=== PATIENT | female | born 1940 | race Caucasian/White ===

== ENCOUNTER 2020-09-13 01:33 | Observation (INO) | payer OTHER ==
--- OUTSIDE RECORDS SUMMARY | 2020-09-13 01:35 | XMS REPORT | Clinical Summary ---
:1940 Author Organization [facility] Address [address] [place] [address] Care Team Providers Name Role Phone Michael Thrasher MD Primary Care Provider [phone] Allergies Not on File Medications Not on file Active Problems Not on file Social History Tobacco Use Types Packs/Day Years Used Date Never Assessed Sex Assigned at Date Recorded Not on file Last Filed Vital Signs Not on file Plan of Treatment Health Maintenance Due Date Last Done Comments SHINGLES VACCINES (#1) 1990 65+ PNEUMOCOCCAL VACCINE (1 of 1 - PPSV23) 2005 INFLUENZA VACCINE 06/02/2020 Results Not on fileafter 09/13/2019 Advance Directives For more information, please contact: [phone] Type Date Recorded 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
[2020-09-13] MEDS ORDERED: ACETAMINOPHEN 650MG/RECT SUPP PR ONE (02:04)
[2020-09-13] MEDS ORDERED: NA CHLORIDE 0.9% 500 ML ONE (02:04)
[2020-09-13 02:28] LABS: Basophils % 1.3 % (0-1.3); RBC Red Blood Cell Count 3.53 M/uL (3.86-4.86)
[2020-09-13 02:41] LABS: Absolute Lymphocytes (CBC) 0.3 K/uL (0.7-4.9); Hematocrit 36.8 % (36.0-45.0); Lymphocytes % 3.9 % (15.3-44.8); MPV 9.1 fL (7.6-11.3)
[2020-09-13 02:57] LABS: Troponin (Emerg Dept Use Only) 0.02 ng/mL (0.0-0.045)
[2020-09-13 02:58] LABS: Potassium 4.1 mmol/L (3.5-5.1)
[2020-09-13 03:08] LABS: Urine Bacteria 20-50 /HPF (<20); Urine Culture Reflex Order NOT NEEDED; Urine RBC <5 /HPF (NONE SEEN)
[2020-09-13] MEDS ORDERED: CEFTRIAXONE/SWI 1gm 1 GM/10 ML SYR ONE (03:40)
--- NOTE | 2020-09-13 03:58 | ER ---
Nurse's Notes [facility] Name: Nilda Daigle Age: 80 yrs Sex: Female : 1940 Arrival Date: 09/13/2020 Time: 01:35 Bed 7 Private MD: Diagnosis: Altered mental status, unspecified;Delirium due to known physiological condition;Urinary tract infection, site not specified Presentation: 09/13 01:50 Chief complaint: EMS states: she is having altered mental status shortness of breath rr5 and fever. the family member noticed her breathing is getting harder. when we arrived RR of 30's, hypotensive 90/60 NS 700ml bolus given. T 101.9 O2sat 90 % hooked to oxygen. 01:50 Coronavirus screen: difficulty breathing, fever, Client presents with at least one sign rr5 or symptom that may indicate coronavirus-19. Standard/surgical mask placed on the client. Provider contacted for isolation considerations. Ebola Screen: Patient negative for fever greater than or equal to 101.5 degrees Fahrenheit, and additional compatible Ebola Virus Disease symptoms Patient denies exposure to infectious person. Patient denies travel to an Ebola-affected area in the 21 days before illness onset. Initial Sepsis Screen: Does the patient meet any 2 criteria? RR > 20 per min. Temp <36.0*C (96.8*F)) or > 38.3*C (100.9*F). HR > 90 bpm. Does the patient have a suspected source of infection? Yes: Productive cough/pneumonia Risk Assessment: Do you want to hurt yourself or someone else? Unable to obtain. Onset of symptoms was September 11, 2020. 01:50 Method Of Arrival: EMS: [facility] rr5 01:50 Acuity: TATIANA 2 rr5 Historical: - Allergies: 01:45 Ciprofloxacin; rr5 - Home Meds: 01:45 Myrbetriq oral oral [Active]; levothyroxine oral [Active]; raloxifene 60 mg oral tab rr5 [Active]; quetiapine oral oral [Active]; Keflex Oral [Active]; - PMHx: 01:45 Dementia; Hypothyroidism; Ulcers; BREAST CANCER; Arthritis; lymph edema; rr5 - PSHx: 01:45 Knee surgery; Hysterectomy; mastectomy right; Appendectomy; rr5 - Immunization history:: Adult Immunizations unknown. - Social history:: Smoking status: unknown. - Family history:: not pertinent. - Hospitalizations: : No recent hospitalization is reported. Screenin:00 Abuse screen: Denies threats or abuse. Denies injuries from another. Nutritional rr5 screening: No deficits noted. Tuberculosis screening: No symptoms or risk factors identified. Fall Risk Secondary diagnosis (15 points) dementia, impaired mobility, IV access (20 points). Mental Status- Overestimates/Forgets Limitations (15 pts.). Total Portillo Fall Scale indicates High Risk Score (45 or more points). Fall prevention measures have been instituted. Side Rails Up X 2 Placed Close to Nursing Station Frequent Obs/Assessments Occuring Family Present and informed to notify staff if the need to leave the bedside As available patient and family educated on Fall Prevention Program and Strategies. Assessment: 01:50 General: Appears in no apparent distress. comfortable, Behavior is quiet, Reports fever rr5 for. 01:50 Pain: Unable to use pain scale. Patient appears quiet. Neuro: Level of Consciousness is rr5 awake, alert, altered mental status. Cardiovascular: Capillary refill < 3 seconds Patient's skin is warm and dry. Respiratory: Airway is patent Respiratory effort is even, unlabored, Respiratory pattern is regular, symmetrical, Parent/caregiver reports the patient having shortness of breath. GI: No signs and/or symptoms were reported involving the gastrointestinal system. : No signs and/or symptoms were reported regarding the genitourinary system. EENT: No signs and/or symptoms were reported regarding the EENT system. Derm: Skin is fragile, is thin, Skin temperature is warm. Musculoskeletal: Capillary refill < 3 seconds. 02:50 Reassessment: Patient appears in no apparent distress at this time. Patient and/or rr5 family updated on plan of care and expected duration. Pain level reassessed. awaiting for results. 03:58 Reassessment: Patient appears in no apparent distress at this time. Patient and/or rr5 family updated on plan of care and expected duration. Pain level reassessed. reassess by ED provider. Vital Signs: 01:50 BP 113 / 74; Pulse 120; Resp 24; Temp 101.7; Pulse Ox 98% on 3 lpm NC; Weight 63.05 kg; rr5 Height 5 ft. 0 in. (152.40 cm); 03:14 BP 115 / 75; Pulse 108; Resp 25; Temp 99.7; Pulse Ox 99% on 3 lpm NC; rr5 03:47 BP 109 / 65; Pulse 102; Resp 24; Pulse Ox 99% on 3 lpm NC; rr5 05:00 BP 102 / 62; Pulse 105; Resp 23; Pulse Ox 99% on 3 lpm NC; rr5 06:08 BP 95 / 56; Pulse 92; Resp 22; Temp 97.4; Pulse Ox 98% on 3 lpm NC; rr5 01:50 Body Mass Index 27.15 (63.05 kg, 152.40 cm) rr5 ED Course: 01:35 Patient arrived in ED. cl3 01:39 Telly Tolentino MD is Attending Physician. rn 01:45 Patient has correct armband on for positive identification. Placed in gown. Bed in low rr5 position. Call light in reach. Side rails up X2. court recording monitor on. Pulse ox on. NIBP on. 01:48 Manan Hyde RN is Primary Nurse. rr5 01:50 EKG done, by ED staff, reviewed by Telly Tolentino MD. rr5 01:55 Inserted saline lock: 20 gauge in left antecubital area, using aseptic technique. rr5 ,using aseptic technique. inserted by cole SRIVASTAVA Blood collected. 01:55 First set of blood cultures drawn by ED staff. rr5 02:01 Triage completed. rr5 02:01 Arm band placed on right wrist. rr5 02:21 Chest Single View XRAY In Process Unspecified. EDMS 02:33 Urine collected: straight cath specimen, clear, Amount Returned: 500mL. rr5 03:56 Alfie Herrera MD is Hospitalizing Provider. rn 04:42 CT Chest For PE Angio In Process Unspecified. EDMS Administered Medications: 02:10 Drug: Tylenol Suppository 650 mg Route: [place]; rr5 03:10 Follow up: Response: No adverse reaction; Temperature is decreased rr5 02:14 Drug: NS 0.9% 500 ml Route: IV; Rate: bolus; Site: left antecubital; wh 03:30 Follow up: Response: No adverse reaction; IV Status: Completed infusion; IV Intake: rr5 500ml 03:35 Drug: Rocephin 1 grams Route: IV; Rate: calculated rate; Site: left forearm; rr5 04:05 Follow up: Response: No adverse reaction; IV Status: Completed infusion; IV Intake: [id number] Intake: 03:30 IV: 500ml; Total: 500ml. rr5 04:05 IV: 10ml; Total: 510ml. rr5 Outcome: 03:57 Decision to Hospitalize by Provider. rn 10:31 Patient left the ED. iw Signatures: Dispatcher [employer] Flavia Hooper RN RN iw Nieto, Roman, MD MD rn Habalo, Winsy wh Roque, Raymond, RN RN rr5 Hakan Kumari cl3
--- NOTE | 2020-09-13 03:58 | EDPHYS ---
Physician Documentation [facility] Name: Nilda Daigle Age: 80 yrs Sex: Female : 1940 Arrival Date: 09/13/2020 Time: 01:35 Bed 7 Private MD: ED Physician Telly Tolentino HPI: 09/13 01:47 This 80 yrs old Female presents to ER via Unassigned with complaints of rn Altered Mental Status, Breathing Difficulty. 01:47 The patient presents with decreased responsiveness. Onset: The symptoms/episode rn began/occurred today. Possible causes: unknown. Associated signs and symptoms: Pertinent positives: confusion, fever. Current symptoms: In the emergency department the patient's symptoms are unchanged from the initial presentation. The patient has not experienced similar symptoms in the past. The patient has been recently seen by a physician:. Family reports fever, AMS, seems to be having difficulty breathing, neg covid test from 2 days ago, no trauma, no known sick contacts, no vomiting/diarrhea. No skin changes. . Historical: - Allergies: 01:45 Ciprofloxacin; rr5 - Home Meds: 01:45 Myrbetriq oral oral [Active]; levothyroxine oral [Active]; raloxifene 60 mg oral tab rr5 [Active]; quetiapine oral oral [Active]; Keflex Oral [Active]; - PMHx: 01:45 Dementia; Hypothyroidism; Ulcers; BREAST CANCER; Arthritis; lymph edema; rr5 - PSHx: 01:45 Knee surgery; Hysterectomy; mastectomy right; Appendectomy; rr5 - Immunization history:: Adult Immunizations unknown. - Social history:: Smoking status: unknown. - Family history:: not pertinent. - Hospitalizations: : No recent hospitalization is reported. ROS: 01:47 Constitutional: + fever Eyes: Negative for injury, pain, redness, and consultants internrn acute care: Negative for chest pain, palpitations, and edema, Respiratory: + difficulty breathing Abdomen/GI: Negative for abdominal pain, nausea, vomiting, diarrhea, and constipation, MS/Extremity: Negative for injury and deformity, Skin: Negative for injury, rash, and discoloration, Neuro: Negative for headache, numbness, tingling, and seizure. Exam: 01:47 Constitutional: This is a well developed, well nourished patient who is awake, alert, rn mild tachypnea Head/Face: Normocephalic, atraumatic. Cardiovascular: Tachycardic, regular Respiratory: + mild tachypnea, diminished at bases Abdomen/GI: Soft, non-tender Skin: Warm, dry MS/ Extremity: Pulses equal, no cyanosis. Neuro: Awake and alert, seems confused, doesn't really follow commands 02:11 ECG was reviewed by the Attending Physician. rn Vital Signs: 01:50 BP 113 / 74; Pulse 120; Resp 24; Temp 101.7; Pulse Ox 98% on 3 lpm NC; Weight 63.05 kg; rr5 Height 5 ft. 0 in. (152.40 cm); 03:14 BP 115 / 75; Pulse 108; Resp 25; Temp 99.7; Pulse Ox 99% on 3 lpm NC; rr5 03:47 BP 109 / 65; Pulse 102; Resp 24; Pulse Ox 99% on 3 lpm NC; rr5 05:00 BP 102 / 62; Pulse 105; Resp 23; Pulse Ox 99% on 3 lpm NC; rr5 06:08 BP 95 / 56; Pulse 92; Resp 22; Temp 97.4; Pulse Ox 98% on 3 lpm NC; rr5 01:50 Body Mass Index 27.15 (63.05 kg, 152.40 cm) rr5 MDM: 01:39 Patient medically screened. rn 03:54 Differential Diagnosis: electrolyte abnormality, pneumonia, sepsis, UTI, volume rn depletion. Data reviewed: vital signs, nurses notes, lab test result(s), EKG, radiologic studies, plain films, and as a result, I will admit patient. Counseling: I had a detailed discussion with the patient and/or guardian regarding: the historical points, exam findings, and any diagnostic results supporting the discharge/admit diagnosis, lab results, radiology results, the need for further work-up and treatment in the hospital. Response to treatment: the patient's symptoms have mildly improved after treatment, and as a result, I will admit patient. Admission orders: after a detailed discussion of the patient's condition and case, the admit orders are written by me. ED course: Pt with signs of UTI, febrile, delirium, will admit for abx and IVF, to Dr. Herrera. Family reports increased agitation, not sleeping, falling, not steady on her feet. . 09/13 01:40 Order name: Urine Culture 09/13 01:40 Order name: Basic Metabolic Panel; Complete Time: 03:17 09/13 01:40 Order name: Blood Culture Adult (2) 09/13 01:40 Order name: CBC with Diff; Complete Time: 02:49 09/13 01:40 Order name: Lactate; Complete Time: 03:17 09/13 01:40 Order name: Procalcitonin; Complete Time: 03:17 09/13 01:40 Order name: Troponin (emerg Dept Use Only); Complete Time: 03:17 09/13 01:40 Order name: Urine Microscopic Only; Complete Time: 03:17 09/13 01:40 Order name: Chest Single View XRAY 09/13 01:40 Order name: Flu; Complete Time: 03:17 09/13 02:21 Order name: Glucose, Ancillary Testing; Complete Time: 02:49 EDKS 09/13 03:50 Order name: CT Chest For PE Angio 09/13 06:22 Order name: COVID-19 rr5 09/13 09:58 Order name: SARS-COV-2 RT PCR EDKS 09/13 01:40 Order name: Accucheck; Complete Time: 02:13 09/13 01:40 Order name: Cardiac monitoring; Complete Time: 02:13 09/13 01:40 Order name: EKG - Nurse/Tech; Complete Time: 02:13 09/13 01:40 Order name: IV Saline Lock - Large Bore; Complete Time: 02:13 09/13 01:40 Order name: Labs collected and sent; Complete Time: 02:13 09/13 01:40 Order name: O2 Per Protocol; Complete Time: 02: 09/13 01:40 Order name: O2 Sat Monitoring; Complete Time: 02:13 09/13 01:40 Order name: Urine Dipstick-Ancillary (obtain specimen); Complete Time: 03:09 09/13 03:09 Order name: Straight Cath - Urine; Complete Time: 03:09 rr5 EC:11 Rate is 121 beats/min. Rhythm is regular. QRS [place] is Normal. [place] interval is normal. rn QRS interval is normal. QT interval is normal. No Q waves. T waves are Normal. No ST changes noted. Clinical impression: Sinus tachycardia. Interpreted by me. Reviewed by me. Administered Medications: 02:10 Drug: Tylenol Suppository 650 mg Route: [place]; rr5 03:10 Follow up: Response: No adverse reaction; Temperature is decreased rr5 02:14 Drug: NS 0.9% 500 ml Route: IV; Rate: bolus; Site: left antecubital; 03:30 Follow up: Response: No adverse reaction; IV Status: Completed infusion; IV Intake: rr5 500ml 03:35 Drug: Rocephin 1 grams Route: IV; Rate: calculated rate; Site: left forearm; rr5 04:05 Follow up: Response: No adverse reaction; IV Status: Completed infusion; IV Intake: [id number] Disposition: 09/13/20 03:57 Hospitalization ordered by Alfie Herrera for Observation. Preliminary diagnosis are Altered mental status, unspecified, Delirium due to known physiological condition, Urinary tract infection, site not specified. - Bed requested for Telemetry/MedSurg (observation). - Status is Observation. iw - Condition is Stable. - Problem is new. - Symptoms have improved. Signatures: Dispatcher [employer] EDMS Mary Gonzalez Irene, CAROLA RN iw Telly Tolentino MD MD rn Lasagna, Tonya, RN RN tl1 Iris Morales Raymond, RN RN rr5 Corrections: (The following items were deleted from the chart) 06:26 03:57 Hospitalization Ordered by Alfie Herrera MD for Inpatient Admission. Preliminary tl1 diagnosis is Altered mental status, unspecified; Delirium due to known physiological condition; Urinary tract infection, site not specified. Bed requested for Telemetry/MedSurg (Inpatient). Status is Inpatient Admission. Condition is Stable. Problem is new. Symptoms have improved. rn 06:52 06:26 09/13/2020 03:57 Hospitalization Ordered by Alfie Herrera MD for Inpatient television journalist. Preliminary diagnosis is Altered mental status, unspecified; Delirium due to known physiological condition; Urinary tract infection, site not specified. Bed requested for [facility]. Status is Inpatient Admission. Condition is Stable. Problem is new. Symptoms have improved. tl1 10:21 06:52 09/13/2020 03:57 Hospitalization Ordered by Alfie Herrera MD for Observation. bd Preliminary diagnosis is Altered mental status, unspecified; Delirium due to known physiological condition; Urinary tract infection, site not specified. Bed requested for [facility] ER HOLD. Status is Observation. Condition is Stable. Problem is new. Symptoms have improved. rn 10:31 10:21 09/13/2020 03:57 Hospitalization Ordered by Alfie Herrera MD for Observation. iw Preliminary diagnosis is Altered mental status, unspecified; Delirium due to known physiological condition; Urinary tract infection, site not specified. Bed requested for Telemetry/MedSurg (observation). Status is Observation. Condition is Stable. Problem is new. Symptoms have improved. bd
[2020-09-13] MEDS ORDERED: ACETAMINOPHEN 500 MG TAB PO PRN (07:57)
[2020-09-13] MEDS ORDERED: ONDANSETRON 4 MG/2 ML VIAL IV PRN (07:57)
[2020-09-13] MEDS ORDERED: NA CHLORIDE 0.9% 1,000 ML IV SCH (07:57)
[2020-09-13 08:42] VITALS: BMI 27.1
[2020-09-13] MEDS ORDERED: D5 0.45 NS 1,000 ML IV ONE (09:00)
[2020-09-13] MEDS: D5 0.45 NS 1,000 ML IV SCH ×2 (09:00→22:20)
--- NOTE | 2020-09-13 13:02 | RAD REPORT ---
CLINICAL HISTORY: DYSPNEA TECHNIQUE: Axial computed tomographic angiography images of the chest with intravenous contrast. S agittal and coronal reformatted images were created and reviewed. This CT exam was performed using one or more of the following dose reduction techniques: automated exposure control, adjustment of t he mA and/or kV according to patient size, and/or use of iterative reconstruction technique. MIP re constructed images were created and reviewed. COMPARISON: No relevant prior studies available. FINDINGS: Pulmonary arteries: No abnormality noted. No pulmonary embolism. Aorta: No acute change noted. No thoracic aortic aneurysm. Lungs: Suboptimal pulmonary dural assessment due to suboptimal opacification and artifact. There is bilateral lower lobe atelectasis adjacent to the large hernia sac. Pleural space: No abnormality noted. No significant effusion. No pneumothorax. Heart: No abnormality noted. No cardiomegaly. No significant pericardial effusion. No evide nce of RV dysfunction. Bones/joints: No acute fracture. No dislocation. Soft tissues: No abnormality noted. Lymph nodes: No abnormality noted. No enlarged lymph nodes. Stomach and bowel: There is a large sliding hiatal hernia containing much of the stomach and a lo op of transverse colon. IMPRESSION: 1. There is a large hiatal hernia containing most of the stomach which appears thicken ed despite incomplete distention. Gastric abnormality such as neoplasm or chronic gastritis not exc luded. 2. Suboptimal pulmonary arterial assessment. No pulmonary embolus noted. Electronically signed by: Mayr Dorado MD 09/13/2020 5:15 AM MINER PLACER Due to temporary technical issues with the PACS/Fluency reporting system, reports are being signed by the in house radiologists without review as a courtesy to insure prompt reporting. The interpreting radiologist is fully responsible for the content of the report.
--- NOTE | 2020-09-13 13:05 | P.SSS ---
Patient History Date of Service: 09/13/20 History of Present Illness: SHE WAS BROUGHT BY FAMILY FOR WEAKNESS AND FEVER. FOUND TO HAVE UTI AND MILD LOW BP. Allergies ciprofloxacin [From Cipro] Allergy (Verified 09/10/16 14:11) Hives ciprofloxacin HCl [From Cipro] Allergy (Verified 09/10/16 14:11) Hives Home Medications: Levothyroxine Sodium 100 mcg PO [id number] 01/26/15 Raloxifene HCl [Evista*] 60 mg PO DAILY 01/26/15 Glucosamine/Chondroitin Sulf A [Glucosamine Chondroitin Cap] 1 each PO BID 08/14/16 Memantine HCl [Namenda*] 10 mg PO BEDTIME 08/14/16 Multivitamin [Multivitamins] 1 each PO DAILY 08/14/16 Vit A/Vit C/Vit E/Zinc/Copper [Icaps Areds Formula Dr Tablet] 1 each PO 1X 08/14/16 Donepezil HCl [Aricept] 10 mg PO BID 09/10/16 - Past Medical/Surgical History Diabetic: No -: rheumatoidarthritis -: knee pain -: speech problems - Social History Alcohol use: No CD- Drugs: No Caffeine use: No Review of Systems is unable to be obtained General: Weakness, Malaise Physical Examination - Vital Signs Temperature: 100.9 F Blood Pressure: 108/58 Pulse: 98 Respirations: 18 Pulse Ox (%): 92 - Physical Exam General: Mild distress, Confused (AT BASELINE SHE HAS SEVERE DEMENTIA AND APHASIA OF UNCLEAR ORIGIN EVALUATED BY NEUROLOGISTS.) HEENT: Atraumatic, PERRLA, Mucous membr. moist/pink, EOMI, Sclerae nonicteric Neck: Supple, 2+ carotid pulse no bruit, No LAD, Without JVD or thyroid abnormality Respiratory: Clear to auscultation bilaterally, Normal air movement Cardiovascular: Regular rate/rhythm, Normal S1 S2 Gastrointestinal: Normal bowel sounds, No tenderness Musculoskeletal: No tenderness Integumentary: No rashes Neurological: Normal gait, Normal speech, Normal strength at 5/5 x4 extr, Normal tone, Normal affect Lymphatics: No axilla or inguinal lymphadenopathy - Studies Laboratory Data (last 24 hrs) 09/13/20 01:58: WBC 8.1, Hgb 12.5, Hct 36.8, Plt Count 228 09/13/20 01:58: Sodium 145, Potassium 4.1, BUN 18, Creatinine 0.96, Glucose 137 H Microbiology Data (last 24 hrs): 09/13/20 01:58 Nasopharnyx Influenza Type A Antigen Screen - Final 09/13/20 01:58 Nasopharnyx Influenza Type B Antigen Screen - Final - Diagnosis (Problem(s)) (1) UTI (urinary tract infection) Current Visit: Yes Status: Acute Plan: UTI, SEEMS TO BE THE CASE [place] UA IS NOT IMPRESSIVE. CULTURE NOT DONE BY LAB. CONTINUE ROCEPHIN. MOST LIKELY DC HOME IN AM. (2) Hypotension Current Visit: Yes Status: Acute Plan: CONT GENTLE HYDRATION. - Disposition Disposition: ROUTINE DISCHARGE
[2020-09-13] MEDS ORDERED: NA CHLORIDE 0.9% 0 ML ONE (13:57)
--- NOTE | 2020-09-13 14:11 | RAD REPORT ---
EXAM DESCRIPTION: CHEST, ONE VIEW XR CLINICAL HISTORY: Fever;Dyspnea COMPARISON: None. TECHNIQUE: AP Chest. FINDINGS: Heart is upper normal in size. Thoracic aorta is tortuous with minimal atherosclerosis. Th ere is a retrocardiac opacity which may represent a very large hiatal hernia. No airspace consolidati on. No pleural fluid. Possible right apical small pneumothorax. No mediastinal shift. Bones appear intact. Unremarkable soft tissues. IMPRESSION: 1. Large retrocardiac opacity suspicious for large hiatal hernia. Lateral view would be helpful. 2. Right apical curvilinear shadow may represent skinfold or very small pneumothorax. Consider conven tional PA and lateral projections when patient condition permits. Electronically signed by: Matilda Zamudio DO 09/13/2020 3:26 AM METAL CEILING HANGER Due to temporary technical issues with the PACS/Fluency reporting system, reports are being signed by the in house radiologists without review as a courtesy to insure prompt reporting. The interpreting radiologist is fully responsible for the content of the report.
[2020-09-13 14:14] LABS: MPV 8.8 fL (7.6-11.3)
[2020-09-13] MEDS ORDERED: CEFTRIAXONE 1 GM/NS 50 ML 1 GM/50 ML BAG IV SCH (15:00)
[2020-09-13 15:59] LABS: Platelet Estimate ADEQ
--- NOTE | 2020-09-13 16:44 | RAD REPORT ---
EXAM DESCRIPTION: CT - Abdomen Pelvis W Contrast - 09/13/2020 4:23 pm CLINICAL HISTORY: Abdominal pain. COMPARISON: None. TECHNIQUE: Computed axial tomography of the abdomen and pelvis was obtained. 100 cc Isovue-300 is ad ministered intravenously. Oral contrast was given. All CT scans are performed using dose optimization technique as appropriate and may include automated exposure control or mA/KV adjustment according to patient size. FINDINGS: Large hiatal hernia. The liver, pancreas, adrenals and right kidney are unremarkable. Splenic granulomata Left parapelvic renal cysts There is no evidence of diverticulitis. Mild anterior subluxation L4 on L5 IMPRESSION: Large hiatal hernia
[2020-09-13] MEDS ORDERED: QUETIAPINE 25 MG TAB PO SCH (21:00)
[2020-09-13] MEDS ORDERED: CEFTRIAXONE/SWI 1gm 1 GM/10 ML SYR IV SCH (21:00)
[2020-09-14] MEDS: D5 0.45 NS 1,000 ML IV SCH (01:52)
[2020-09-14 06:55] LABS: Basophils % 3.1 % (0-1.3); Hematocrit 33.1 % (36.0-45.0); Lymphocytes % 22.4 % (15.3-44.8); MPV 8.2 fL (7.6-11.3); RBC Red Blood Cell Count 3.18 M/uL (3.86-4.86)
[2020-09-14 07:08] LABS: Potassium 3.8 mmol/L (3.5-5.1)
[2020-09-14 08:44] VITALS: O2SAT 95
[2020-09-14 08:53] LABS: Anisocytosis SLIGHT; Blood Morphology Comment NOTED (NOT SEEN); Macrocytosis SLIGHT; Platelet Estimate ADEQ
[2020-09-14] MEDS ORDERED: ENOXAPARIN 40 MG/0.4 ML SQ SCH (09:00)
[2020-09-14 11:51] VITALS: BP 118/60; TEMP 98.6
--- NOTE | 2020-09-16 07:52 | EKG ---
Test Date: 2020-09-13 Test Time: 01:46:44 Communication Instructor: MEASUREMENT RESULTS: Intervals: Rate: 121 SC: 168 QRSD: 70 QT: 308 QTc: 437 [place]: P: -16 SC: 168 QRS: 21 T: 19 INTERPRETIVE STATEMENTS: Sinus tachycardia with premature atrial complexes Otherwise normal ECG Compared to ECG 01/26/2015 06:41:07 Atrial premature complex(es) now present Sinus rhythm no longer present ST (T wave) deviation no longer present Electronically Signed On 09-16-20 07:42:20 CABLE MOCK UP ASSEMBLER by Mac Menendez
== END 2020-09-14 13:16 | disposition home or self-care (01) ==
LOC: ER 01:33 → INTOOBSV 06:28 → ERHOLD 06:28 → 4TH 10:52
PROVIDERS: ADMIT Internal Medicine; ATTEND Internal Medicine
DX: N39.0 Urinary tract infection, site not specified (principal); M06.9 Rheumatoid arthritis, unspecified; I95.9 Hypotension, unspecified; Z20.828 Contact with and (suspected) exposure to other viral communicable diseases; F03.90 Unspecified dementia, unspecified severity, without behavioral disturbance, psychotic disturbance, mood disturbance, and anxiety; E03.9 Hypothyroidism, unspecified; Z85.3 Personal history of malignant neoplasm of breast; M19.90 Unspecified osteoarthritis, unspecified site; K44.9 Diaphragmatic hernia without obstruction or gangrene
CPT/HCPCS: 96365; 96361; 93005; 87040 ×2; 85025 ×2; 87086; 80048 ×2; 36415 ×2; 85049; 82947; 83605; 81015; 84484; 84145; 87804 ×2; 71275; 74177; 71045; 99285; U0003; Q9967 ×2; J1650; J0696 ×2; J7799 ×2; J7040; 87088

== ENCOUNTER 2020-10-25 23:25 | Inpatient (IN) | payer OTHER ==
--- OUTSIDE RECORDS SUMMARY | 2020-10-25 23:26 | XMS REPORT | Clinical Summary ---
:1940 Author Organization [facility] Address [address] [place] [address] Care Team Providers Name Role Phone Michael Thrasher MD Primary Care Provider [phone] Allergies Not on File Medications Not on file Active Problems Not on file Social History Tobacco Use Types Packs/Day Years Used Date Never Assessed Sex Assigned at Date Recorded Not on file Last Filed Vital Signs Not on file Plan of Treatment Health Maintenance Due Date Last Done Comments COVID-19 VACCINE (#1) 1956 SHINGLES VACCINES (#1) 1990 65+ PNEUMOCOCCAL VACCINE (1 of 1 - PPSV23) 2005 INFLUENZA VACCINE 06/02/2020 Results Not on fileafter 10/25/2019 Advance Directives For more information, please contact: [phone] Type Date Recorded 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
[2020-10-26 00:14] LABS: Absolute Lymphocytes (CBC) 0.4 K/uL (0.7-4.9); Basophils % 0.6 % (0-1.3); Hematocrit 33.4 % (36.0-45.0); Lymphocytes % 3.3 % (15.3-44.8); MPV 8.6 fL (7.6-11.3); RBC Red Blood Cell Count 3.18 M/uL (3.86-4.86)
[2020-10-26 00:15] LABS: Protime INR 1.05
[2020-10-26] MEDS ORDERED: NA CHLORIDE 0.9% 2,000 ML ONE (00:15)
[2020-10-26] MEDS ORDERED: CEFTRIAXONE/SWI 1gm 1 GM/10 ML SYR ONE (00:16)
[2020-10-26 00:17] LABS: Urine Blood NEGATIVE (NEG); Urine Glucose NEGATIVE (NEG); Urine Protein NEGATIVE (NEG); Urine Specific Gravity >1.030 (1.005-1.030); Urine pH 6.5 (5.0-7.0)
[2020-10-26 00:32] LABS: Albumin 3.1 g/dL (3.4-5.0); Bilirubin Direct 0.2 mg/dL (0-0.2); Bilirubin Total 0.6 mg/dL (0.2-1.0); CKMB Creatine Kinase MB 1.7 ng/mL (0.3-3.6); Potassium 3.7 mmol/L (3.5-5.1); Protein, Total 6.3 g/dL (6.4-8.2); Troponin (Emerg Dept Use Only) 0.03 ng/mL (0.0-0.045)
[2020-10-26 00:34] LABS: Urine Bacteria <20 /HPF (<20); Urine Mucus 2+ /HPF (NONE SEEN); Urine RBC <5 /HPF (NONE SEEN)
[2020-10-26 00:44] LABS: Platelet Estimate ADEQ
[2020-10-26 00:45] LABS: Blood Morphology Comment NOTED (NOT SEEN); Ovalocytes 2+; Poikilocytosis 1+; Stomatocytes 1+
[2020-10-26] MEDS ORDERED: ALBUTEROL 2.5 MG/3 ML NEB SOL NEB PRN (04:34)
[2020-10-26] MEDS ORDERED: ACETAMINOPHEN 650MG/RECT SUPP PR PRN (04:34)
[2020-10-26] MEDS ORDERED: ONDANSETRON 4 MG/2 ML VIAL IV PRN (04:34)
[2020-10-26] MEDS ORDERED: D5 0.45 NS 1,000 ML IV ONE (04:41)
[2020-10-26] MEDS ORDERED: PIPER/TAZO/NS 3.375gm 3.375 GM/100 ML BAG ONE (04:43)
[2020-10-26] MEDS ORDERED: MORPHINE 2 MG/ML SYR IV PRN (04:44)
[2020-10-26] MEDS ORDERED: LIDOCAINE VISCOUS 2% SOLN 15 ML UDC ONE (04:55)
[2020-10-26] MEDS: PIPER/TAZO/NS 3.375gm 3.375 GM/100 ML BAG IVPB SCH ×3 (06:00→18:00)
--- NOTE | 2020-10-26 06:29 | EDPHYS ---
Physician Documentation [facility] Name: Nilda Daigle Age: 80 yrs Sex: Female : 1940 Arrival Date: 10/25/2020 Time: 23:26 Bed 7 Private MD: ED Physician Del Garcia HPI: 10/25 23:58 This 80 yrs old Female presents to ER via EMS with complaints of Fever. [facility] 23:58 The patient reports fever, that was measured at 101 degrees Fahrenheit, with an 7 emergency department temperature of 102 degrees Fahrenheit. Onset: The symptoms/episode began/occurred today. Modifying factors: there are no obvious modifying factors. Associated signs and symptoms: Pertinent positives: altered mental status,\E\. Severity of symptoms: At their worst the symptoms were moderate today, in the emergency department the symptoms are unchanged. Unable to obtain HPI due to baseline dementia, Mute. The patient has experienced similar episodes in the past, a few times. Historical: - Allergies: 23:35 Ciprofloxacin; rv - PMHx: 23:35 Arthritis; breast cancer; Dementia; Hypothyroidism; LYMPH EDEMA; Ulcers; rv - Immunization history:: Adult Immunizations up to date. - Social history:: Smoking status: unknown. ROS: 23:58 Unable to obtain ROS due to baseline dementia, Mute. 7 Exam: 23:58 Head/Face: Normocephalic, atraumatic. Eyes: Pupils equal round and reactive to light, 7 extra-ocular motions intact. Lids and lashes normal. Conjunctiva and sclera are non-icteric and not injected. Cornea within normal limits. Periorbital areas with no swelling, redness, or edema. ENT: Nares patent. No nasal discharge, no septal abnormalities noted. Tympanic membranes are normal and external auditory canals are clear. Oropharynx with no redness, swelling, or masses, exudates, or evidence of obstruction, uvula midline. Mucous membranes moist. Neck: Trachea midline, no thyromegaly or masses palpated, and no cervical lymphadenopathy. Supple, full range of motion without nuchal rigidity, or vertebral point tenderness. No Meningismus. Chest/axilla: Normal chest wall appearance and motion. Nontender with no deformity. No lesions are appreciated. 23:58 Respiratory: Lungs have equal breath sounds bilaterally, clear to auscultation and percussion. No rales, rhonchi or wheezes noted. No increased work of breathing, no retractions or nasal flaring. Abdomen/GI: Soft, non-tender, with normal bowel sounds. No distension or tympany. No guarding or rebound. No evidence of tenderness throughout. Back: No spinal tenderness. No costovertebral tenderness. Full range of motion. Skin: Warm, dry with normal turgor. Normal color with no rashes, no lesions, and no evidence of cellulitis. MS/ Extremity: Pulses equal, no cyanosis. Neurovascular intact. Full, normal range of motion. 23:58 Constitutional: The patient appears in no acute distress, alert, awake, febrile. 23:58 Cardiovascular: Rate: tachycardic, Rhythm: regular, Pulses: no pulse deficits are appreciated, Heart sounds: normal, normal S1and S2, Edema: is not appreciated, JVD: is not appreciated. 23:58 Neuro: Orientation: unable to test, the patient has a history of dementia, Mentation: unable to test, the patient has a history of dementia, Memory: unable to test, the patient has a history of dementia, Cranial nerves: unable to test, Mute, Cerebellar function: unable to test, the patient has a history of dementia, Motor: moves all fours, Sensation: no obvious gross deficits, Gait: not tested. Deep tendon reflexes are normal, Babinski testing is normal, seizure activity, is not displayed by the patient, Abnormal movements: there are no abnormal movements. 10/26 05:28 ECG was reviewed by the Attending Physician. [facility] Vital Signs: 10/25 23:29 BP 126 / 77; Pulse 123; Resp 20; Temp 102.1; Pulse Ox 94% on R/A; rv 23:58 Weight 68.04 kg; rv 10/26 01:59 BP 110 / 59; Pulse 102; Resp 26; Temp 100.4; Pulse Ox 96% on R/A; rv 02:48 BP 111 / 60; Pulse 101; Resp 26; Pulse Ox 97% on R/A; rv 04:16 BP 110 / 55; Pulse 88; Resp 24; Temp 98.5; Pulse Ox 96% on R/A; rv 05:00 BP 122 / 69; Pulse 112; Resp 21; Pulse Ox 97% on R/A; rv 06:00 BP 113 / 66; Pulse 102; Resp 23; Pulse Ox 97% ; rv MDM: 04:25 Differential diagnosis: viral Infection, bacterial infection, URI, bronchitis, mh7 pneumonia UTI. Data reviewed: vital signs, nurses notes, EMS record, old medical records, lab test result(s), cardiac enzymes, CBC, electrolytes, urinalysis, EKG, radiologic studies, CT scan, plain films. Data interpreted: Pulse oximetry: on room air is 96 %. Interpretation: normal. Counseling: I had a detailed discussion with the patient and/or guardian regarding: the historical points, exam findings, and any diagnostic results supporting the discharge/admit diagnosis, lab results, radiology results, the need for further work-up and treatment in the hospital. Response to treatment: the patient's symptoms have markedly improved after treatment. Physician consultation: Mayco Valdivia MD regarding patient's condition, and will see patient in inpatient room, would like admission per Dr. Alfie Hrerera MD Wants nasogastric tube placed. 04:29 Patient medically screened. [facility] 10/25 23:32 Order name: Amylase, Serum [facility] 10/25 23:32 Order name: Basic Metabolic Panel [facility] 10/25 23:32 Order name: Blood Culture Adult (2) [facility] 10/25 23:32 Order name: CBC with Diff; Complete Time: 00:53 [facility] 10/25 23:32 Order name: Ckmb; Complete Time: 00:53 [facility] 10/25 23:32 Order name: CPK; Complete Time: 00:53 [facility] 10/25 23:32 Order name: Lactate; Complete Time: 00:53 [facility] 10/25 23:32 Order name: LFT's; Complete Time: 00:53 [facility] 10/25 23:32 Order name: Lipase; Complete Time: 00:53 [facility] 10/25 23:32 Order name: Procalcitonin; Complete Time: 01:09 [facility] 10/25 23:32 Order name: Protime (+inr); Complete Time: 00:53 [facility] 10/25 23:32 Order name: Ptt, Activated; Complete Time: 00:53 [facility] 10/25 23:32 Order name: Troponin (emerg Dept Use Only); Complete Time: 00:53 [facility] 10/25 23:32 Order name: Urine Microscopic Only; Complete Time: 00:53 [facility] 10/25 23:32 Order name: Chest Single View XRAY [facility] 10/25 23:33 Order name: Amylase; Complete Time: 00:53 [facility] 10/25 23:33 Order name: Basic Metabolic Panel; Complete Time: 00:53 [facility] 10/25 23:33 Order name: Blood Culture [facility] 10/25 23:33 Order name: Influenza Screen (a \T\ B); Complete Time: 00:53 [facility] 10/25 23:37 Order name: CT Head Brain wo Cont [facility] 10/25 23:59 Order name: Glucose, Ancillary Testing; Complete Time: 00:09 [facility] 10/26 00:04 Order name: Urine Dipstick--Ancillary (enter results); Complete Time: 00:53 [facility] 10/26 00:17 Order name: Manual Differential; Complete Time: 00:53 [facility] 10/26 00:52 Order name: SARS-COV-2 RT PCR; Complete Time: 00:53 [facility] 10/26 02:14 Order name: Chest Abd Pelvis Wo Con [facility] 10/26 04:17 Order name: Lactate Sepsis 2 HR Follow-up; Complete Time: 05:29 [facility] 10/26 05:40 Order name: Chest Single View XRAY 10/25 23:32 Order name: Accucheck; Complete Time: 23:58 7 10/25 23:32 Order name: Cardiac monitoring; Complete Time: 23:58 [facility] 10/25 23:32 Order name: EKG - Nurse/Tech; Complete Time: 23:58 [facility] 10/25 23:32 Order name: IV Saline Lock - Large Bore; Complete Time: 23:58 [facility] 10/25 23:32 Order name: Labs collected and sent; Complete Time: 23:58 7 10/25 23:32 Order name: O2 Per Protocol; Complete Time: 23:58 [facility] 10/25 23:32 Order name: O2 Sat Monitoring; Complete Time: 23:56 [facility] 10/25 23:32 Order name: Urine Dipstick-Ancillary (obtain specimen); Complete Time: 23:56 [facility] 10/26 04:34 Order name: CONS Physician Consult EDSD EC:28 Rate is 121 beats/min. Rhythm is regular, Sinus tachycardia. QRS [place] is Normal. IN mh7 interval is normal. QRS interval is normal. QT interval is normal. No Q waves. T waves are Normal. No ST changes noted. Clinical impression: Sinus tachycardia. Administered Medications: 10/25 23:56 Not Given (given at longterm): Tylenol 650 mg PO once rv 10/26 00:00 Drug: Rocephin - (cefTRIAXone) 1 grams Route: IVPB; Infused Over: 30 mins; Site: left rv hand; 00:05 Drug: NS 0.9% (30 ml/kg) 30 ml/kg Route: IV; Rate: bolus; Site: left hand; rv 04:18 Follow up: IV Status: Completed infusion; IV Intake: 2000ml rv 04:40 Drug: Zosyn 3.375 grams Route: IVPB; Infused Over: 60 mins; Site: left wrist; 06:28 Follow up: Response: No adverse reaction; IV Status: Completed infusion 04:41 Drug: D5-1/2 NS 1000 ml Route: IV; Rate: 100 calculated rate; Site: left wrist; 06:28 Follow up: Response: No adverse reaction; IV Status: Infusion continued upon admission Disposition: 10/26/20 04:29 Hospitalization ordered by Alfie Herrera for Inpatient Admission. Preliminary diagnosis are Sepsis, Volvulus. - Bed requested for Telemetry/MedSurg (Inpatient). - Status is Inpatient Admission. - Condition is Stable. - Problem is new. - Symptoms have improved. Signatures: Dispatcher [employer] EDSD Liseth Bermudez RN RN Iris Morales Hugo Edwards RN RN Del Garcia MD MD [id number] Corrections: (The following items were deleted from the chart) 00:12 10/25 23:34 CORONAVIRUS+MR.LAB.BRZ ordered. EDSD EDSD 10/26 02:14 02:04 Thorax Wo Con+CT.RAD.BRZ ordered. EDSD EDMS 02:32 02:04 Abdomen Pelvis Wo Con+CT.RAD.BRZ ordered. EDSD EDMS 04:54 04:29 Hospitalization Ordered by Alfie Herrera MD for Inpatient Admission. Preliminary cg diagnosis is Sepsis; Volvulus. Bed requested for Telemetry/MedSurg (Inpatient). Status is Inpatient Admission. Condition is Stable. Problem is new. Symptoms have improved. 7 06:28 04:54 10/26/2020 04:29 Hospitalization Ordered by Alfie Herrera MD for Inpatient Admission. Preliminary diagnosis is Sepsis; Volvulus. Bed requested for Telemetry/MedSurg (Inpatient). Status is Inpatient Admission. Condition is Stable. Problem is new. Symptoms have improved. cg
--- NOTE | 2020-10-26 06:29 | ER ---
Nurse's Notes [facility] Name: Nilda Daigle Age: 80 yrs Sex: Female : 1940 Arrival Date: 10/25/2020 Time: 23:26 Bed 7 Private MD: Diagnosis: Sepsis;Volvulus Presentation: 10/25 23:29 Chief complaint: EMS states: initially called in for possible stroke, with facial rv droop. upon assessment, patient is negative for stroke. vital signs checked and patient has a temperature of 102. Coronavirus screen: Client denies travel out of the [place] in the last 14 days. Coronavirus screen: fever. Ebola Screen: No symptoms or risks identified at this time. Initial Sepsis Screen: Does the patient meet any 2 criteria? Temp <36.0*C (96.8*F)) or > 38.3*C (100.9*F). HR > 90 bpm. Initial Sepsis Screen: Does the patient have a suspected source of infection? Yes: Dysuria/Frequency/Urgency/UTI. Risk Assessment: Do you want to hurt yourself or someone else? Patient reports no desire to harm self or others. Onset of symptoms was October 25, 2020. 23:29 Method Of Arrival: EMS: [facility] rv 23:29 Acuity: TATIANA 3 rv Triage Assessment: 23:35 General: Appears comfortable, Behavior is quiet. Pain: Denies pain. EENT: No signs rv and/or symptoms were reported regarding the EENT system. Neuro: Level of Consciousness is awake, confused. Cardiovascular: Patient's skin is warm and dry. Rhythm is sinus tachycardia. Respiratory: Airway is patent Respiratory effort is even, unlabored. Derm: Skin is intact. Historical: - Allergies: 23:35 Ciprofloxacin; rv - PMHx: 23:35 Arthritis; breast cancer; Dementia; Hypothyroidism; LYMPH EDEMA; Ulcers; rv - Immunization history:: Adult Immunizations up to date. - Social history:: Smoking status: unknown. Screenin:36 Abuse screen: Denies threats or abuse. Denies injuries from another. Nutritional rv screening: No deficits noted. Tuberculosis screening: No symptoms or risk factors identified. Fall Risk No fall in past 12 months (0 pts). Secondary diagnosis (15 points) Alzheimer's, dementia, IV access (20 points). Ambulatory Aid- Crutches/Cane/Walker (15 pts). Gait- Weak (10 pts.). Mental Status- Overestimates/Forgets Limitations (15 pts.). Total Portillo Fall Scale indicates High Risk Score (45 or more points). Fall prevention measures have been instituted. Side Rails Up X 2 Placed Close to Nursing Station Frequent Obs/Assessments Occuring As available patient and family educated on Fall Prevention Program and Strategies. Assessment: 10/26 05:00 Reassessment: Patient appears in no apparent distress at this time. Patient and/or wh family updated on plan of care and expected duration. Pain level reassessed. Vital Signs: 10/25 23:29 BP 126 / 77; Pulse 123; Resp 20; Temp 102.1; Pulse Ox 94% on R/A; rv 23:58 Weight 68.04 kg; rv 10/26 01:59 BP 110 / 59; Pulse 102; Resp 26; Temp 100.4; Pulse Ox 96% on R/A; rv 02:48 BP 111 / 60; Pulse 101; Resp 26; Pulse Ox 97% on R/A; rv 04:16 BP 110 / 55; Pulse 88; Resp 24; Temp 98.5; Pulse Ox 96% on R/A; rv 05:00 BP 122 / 69; Pulse 112; Resp 21; Pulse Ox 97% on R/A; rv 06:00 BP 113 / 66; Pulse 102; Resp 23; Pulse Ox 97% ; rv ED Course: 10/25 23:26 Patient arrived in ED. cl3 23:29 Hugo Edwards RN is Primary Nurse. rv 23:32 Del Garcia MD is Attending Physician. mh7 23:33 Triage completed. rv 23:36 Arm band placed on right wrist. Patient placed in the treatment room, on a stretcher, rv Patient notified of wait time. 23:37 Patient has correct armband on for positive identification. Bed in low position. Call rv light in reach. Side rails up X 1. vehicle monitor technician on. Pulse ox on. NIBP on. 10/26 00:13 Chest Single View XRAY In Process Unspecified. EDMS 00:26 CT Head Brain wo Cont In Process Unspecified. EDMS 00:30 No provider procedures requiring assistance completed. Inserted saline lock: 20 gauge rv in left hand, using aseptic technique. 02:41 Chest Abd Pelvis Wo Con In Process Unspecified. EDFL 04:28 Alfie Herrera MD is Hospitalizing Provider. [facility] 05:30 NGT: inserted 18 Fr. via left nare. verified return of gastric contents, Placement rv verified by X-ray, to intermittent suction. Returned gastric contents. Patient tolerated well. 06:16 Patient admitted, IV remains in place. Administered Medications: 10/25 23:56 Not Given (given at intermediate): Tylenol 650 mg PO once rv 10/26 00:00 Drug: Rocephin - (cefTRIAXone) 1 grams Route: IVPB; Infused Over: 30 mins; Site: left rv hand; 00:05 Drug: NS 0.9% (30 ml/kg) 30 ml/kg Route: IV; Rate: bolus; Site: left hand; rv 04:18 Follow up: IV Status: Completed infusion; IV Intake: 2000ml rv 04:40 Drug: Zosyn 3.375 grams Route: IVPB; Infused Over: 60 mins; Site: left wrist; 06:28 Follow up: Response: No adverse reaction; IV Status: Completed infusion 04:41 Drug: D5-1/2 NS 1000 ml Route: IV; Rate: 100 calculated rate; Site: left wrist; 06:28 Follow up: Response: No adverse reaction; IV Status: Infusion continued upon admission Intake: 04:18 IV: 2000ml; Total: 2000ml. rv Outcome: 04:29 Decision to Hospitalize by Provider. [facility] 06:15 Admitted to Med/surg accompanied by nurse, via stretcher, room 212, with chart, Report wh called to Hayde Wade RN 06:15 Condition: stable 06:15 Instructed on the need for admit. 06:28 Patient left the ED. Signatures: Dispatcher [employer] EDFL Iris Morales Hugo Edwards RN RN rv Hakan Kumari3 Del Garcia MD MD 7
[2020-10-26 06:40] VITALS: BMI 30.1
[2020-10-26] MEDS: INSULIN -REGULAR HUMAN 50 UNIT/0.5 ML ML SQ SCH ×4 (07:30→21:00)
[2020-10-26] MEDS: D5 0.45 NS 1,000 ML IV SCH ×2 (10:13→15:00)
--- NOTE | 2020-10-26 11:33 | RAD REPORT ---
EXAM DESCRIPTION: RAD - Chest Single View - 10/26/2020 6:02 am CLINICAL HISTORY: POST NGT Chest pain. COMPARISON: Chest Single View dated 10/26/2020; Chest Single View dated 09/13/2020; Chest Pa And Lat (2 Views) dated 09/06/2020; CHEST SINGLE VIEW dated 01/26/2015 FINDINGS: Portable technique limits examination quality. Enteric tube tip is likely within the large hiatal hernia. A mild kink is seen of the tubing.
--- NOTE | 2020-10-26 12:30 | CON ---
Date of Consultation: 10/26/2020 Brief History Of Present Illness: Patient is an 80-year-old female with a history of demen tia, who is aphasic and nonverbal, who is accompanied by her daughter who brought her to the hospital from a senior care with complaints of fever. There was no report of abdominal pain, although the p atient cannot describe these types of issues. She had a fever of 102. She had no nausea, vomiting, change in her bowel or bladder habits. No food intolerance. No abdominal distention or abdominal fi ndings. She had a CT scan performed in the ER, which incidentally found a large hiatal hernia, which was previously known from the daughter as well as an organoaxial volvulus of the stomach. Patient h ad an NG-tube placed, which had only clear effluent without evidence of bleeding and as such, I was c onsulted to see the patient for the volvulus. Past Medical History: Significant for arthritis, breast cancer, dementia, she is aphasic, hypothyroi dism, lymphedema, ulcers. Allergies: TO CIPRO. Review of Systems: Unable to obtain. Social History: There is no smoking, alcohol, or recreational drug use history. She lives in a [facility] facility. Physical Examination: Vital Signs: At the time of my examination, blood pressure 126/60, heart rate is 98, respiratory rat e 16, temperature 99.5. General: She is awake and alert, but she is nonverbal. She does not respond in any meaningful way. She does look around, but does not gesture or respond to me with any appropriate gesturing. HEENT: Otherwise normocephalic. Sclerae anicteric. Mucous membranes are moist. Oropharynx clear. Neck: Supple without JVD. Chest: Normal expansion and excursion. Cardiovascular: Regular rate and rhythm. Pulmonary: Clear to auscultation bilaterally. Abdomen: Soft, nontender, nondistended. No rebound. No guarding. No focal peritonitis. She has a completely benign abdominal examination. Laboratory Data: Reveals her white blood cell count is 11.5, hemoglobin is 7.2, hematocrit of 33.4, platelet count is 239. Her neutrophils are 93%. PT 12.4, INR 1.05, PTT is 24.0. Her sodium is 146, potassium 3.7, chloride 116, carbon dioxide 22, BUN 19, creatinine 0.8, glucose was 136. Lactic aci d was 2.6 on admission, now 1.5. Her alkaline phosphatase is 32, lipase is 102. Procalcitonin less than 0.05. UA was essentially negative. I believe her COVID was negative. She had imaging performe d, which included a CT of the abdomen and pelvis, officially read as no evidence of acute intrathorac ic disease. CT chest, abdomen, and pelvis, organoaxial gastric volvulus. The majority of the stomac h extends through the diaphragmatic hiatus and as there is a portion of the transverse colon, the gre ater curve of the stomach lies above the lesser curve. Degenerative changes in the skeletal and vasc ular structures. Evidence of prior granulomatous disease. 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 Degenerative change to the skeletal and vascular structures with grade 1 anterolis thesis of L4 relative to L5 and mild scoliosis of the lumbar spine and a prior hysterectomy. She add itionally had a chest x-ray performed which was officially read as no evidence of acute intrathoracic disease and a large hiatal hernia. She had a CT of her head performed as well, which showed no evid ence of acute intracranial pathology, moderate cerebral atrophy with findings consistent of chronic microangiopathy. Assessment And Plan: 1.This is an 80-year-old female who presents to the hospital with organoaxial volvulus, large hiatal hernia with portion of transverse colon. 2.Continue medical management. 3.Remove NG tube. 4.Okay to start clear liquid diet and advance to soft diet as tolerated. 5.I find that patient has no evidence of intraabdominal issues. 6.I have discussed the surgical options for repair of her hiatal hernia as well as gastropexy to red uce the volvulus; however, her daughter, who is her medical power of logistics loss prevention manager, states that the patien t would not wish for any surgical intervention as she had a very difficult recovery from previous lisset geries and she is DNR status as well. Therefore, they would like to proceed with nonoperative manage ment unless there are no other options at which point they would reconsider. However, at this point, they agree with proceeding with nonoperative management. I have explained risks, alternatives, alte rnatives of the above stated plan. Patient agrees to proceed as indicated. BING/KATRINA Voice ID: [id number] Report ID: [id number]
--- NOTE | 2020-10-26 12:48 | RAD REPORT ---
EXAM DESCRIPTION: ADDENDUM #1 These critical findings were discussed with Dr. Garcia on 10/26/2020 at 1:34 AM central time. Electronically signed by: Nancy Fallon DO 10/26/2020 3:32 AM [facility] End of Addendum EXAM DESCRIPTION: CT head without IV contrast CLINICAL HISTORY: 80 years Female AMS, facial droop TECHNIQUE: Multiple axial CT images of the brain were performed followed by sagittal and coronal rec onstructed images. The CT study is performed according to ALARA (as low as reasonably achievable) or ALARA/IMAGE GENTLY, with automatic adjustment of mA and/or kV according to patient size. Performed on: 10/25/2020 at 11:45 PM COMPARISON: None. FINDINGS: Brain: There is no evidence of mass, acute mass effect or midline shift. There are no acut e extra-axial fluid collections. There is no evidence of acute intracranial hemorrhage. The cerebra l sulci and ventricles are prominent consistent with moderate cerebral volume loss..There are scatter ed areas of decreased attenuation within the subcortical and periventricular white matter most likely due to mild chronic microangiopathy. There is no evidence of a hyperdense MCA. Paranasal Sinuses and Mastoids: There is no significant mucosal thickening of the paranasal sinuses. The mastoid air cells are clear. Orbits: The orbital contents are grossly unremarkable. Bones: No acute osseous abnormalities are identified. Soft Tissues: No focal soft tissue abnormalities are identified. IMPRESSION: 1. There is no evidence of acute intracranial pathology. 2. Moderate cerebral atrophy with findings consistent with chronic microangiopathy. Electronically signed by: Nancy Fallon DO 10/26/2020 1:31 AM [facility] Due to temporary technical issues with the PACS/Fluency reporting system, reports are being signed by the in house radiologists without review as a courtesy to insure prompt reporting. The interpreting radiologist is fully responsible for the content of the report.
--- NOTE | 2020-10-26 12:52 | RAD REPORT ---
EXAM DESCRIPTION: 1. CT scan of the CHEST without intravenous contrast. 2. CT scan of the ABDOMEN AND PELVIS without intravenous contrast CLINICAL HISTORY: 80 years Female fever, possible pneumonia. TECHNIQUE: CT imaging of the chest, abdomen and pelvis without intravenous contrast administration. Sagittal and coronal reconstructed images were performed. The CT study is performed according to ALAR A (as low as reasonably achievable) or ALARA/IMAGE GENTLY, with automatic adjustment of mA and/or kV according to patient size. Performed on: 10/26/2020 2:25 AM COMPARISON: CT chest, abdomen and pelvis performed on 09/13/2020 FINDINGS: CHEST: Lungs: The lungs are well-expanded and are grossly clear. There is minimal left basilar atelectasis. There is a large hiatal hernia. The majority of the stomach as well as portions of the transverse col on extending through the diaphragmatic hiatus. The appearance of the stomach suggests an organoaxial volvulus. There are no pleural effusions. There is no pneumothorax. Heart: The heart is top normal in size. There is no pericardial effusion. Mediastinum: The mediastinum is unremarkable. The mediastinal vessels are normal in caliber and con tour. There are mild atherosclerotic calcifications along the thoracic aorta. Bones: No acute osseous abnormalities are identified. There are degenerative changes along the thorac ic spine and there are vacuum discs at multiple levels. Soft tissues: No focal soft tissue abnormalities are identified. Lymphadenopathy: No pathologic hilar, mediastinal or axillary lymphadenopathy is identified. There are calcified right hilar lymph nodes. ABDOMEN/PELVIS: Liver: The liver is normal in size and configuration. No focal hepatic abnormalities are identified. Liver attenuation is within normal limits. Spleen: The spleen is normal is size, configuration and attenuation. There are multiple punctate sple michelle granulomas. Gallbladder and bile duct: The gallbladder is well distended and unremarkable. There is no biliary ductal dilatation. Pancreas: The pancreas is grossly normal in size and configuration. Adrenal Glands: The adrenal glands are normal in size and configuration. Kidneys: The kidneys are normal in size and configuration. There is persistent dilatation of the left renal collecting system which may be related to a chronic UPJ obstruction. No definite renal or uret eral calculi are identified. No definite solid or cystic renal mass lesions are identified. Stomach: The stomach is intrathoracic and the greater curvature lies above the lesser curvature consi stent with organoaxial volvulus. Bowel: The bowel gas pattern is non specific and non obstructive. Appendix: There is no CT evidence of acute appendicitis. Free air: There is no evidence of free air. Free fluid: There is no evidence of free fluid. Vasculature: The aorta is normal in caliber and contour. There are mild atherosclerotic calcification s along the abdominal aorta and iliac arteries. The inferior vena cava is grossly unremarkable. Lymphadenopathy: No pathologic lymphadenopathy is identified. Bladder: The bladder is well distended and smooth in contour. Reproductive: The uterus is not identified and is likely surgically absent Bones: No acute osseous abnormalities are identified. There are chronic degenerative changes of the l umbar spine with vacuum discs present at multiple levels. There is a grade 1 anterolisthesis of L4 re lative to L5. There is mild scoliosis of the lumbar spine. Soft tissues: No focal soft tissue abnormalities are identified. IMPRESSION: CT CHEST: 1. No evidence of acute intrathoracic disease. 2. Organoaxial gastric volvulus. The majority of the stomach extends through the diaphragmatic hiatus as does a portion of the transverse colon. The greater curvature of the stomach lies above the lesse r curvature. 3. Degenerative changes of the skeletal and vascular structures. 4. Evidence of prior granulomatous disease. CT SCAN ABDOMEN AND PELVIS: 1. Organoaxial gastric volvulus and large hiatal hernia containing a portion of the transverse colon. 2. Evidence of prior granulomatous disease. 3. Persistent dilatation of the left renal collecting system likely due to a chronic UPJ obstruction. 4. Degenerative changes of the skeletal and vascular structures with grade 1 anterolisthesis of L4 re lative to L5 and mild scoliosis of the lumbar spine. 5. Prior hysterectomy. Electronically signed by: Nancy Fallon DO 10/26/2020 4:02 AM DISTRICT SERVICE MANAGER Due to temporary technical issues with the PACS/Fluency reporting system, reports are being signed by the in house radiologists without review as a courtesy to insure prompt reporting. The interpreting radiologist is fully responsible for the content of the report.
--- NOTE | 2020-10-26 13:17 | RAD REPORT ---
EXAM DESCRIPTION: X-ray single view chest. CLINICAL HISTORY: 80 years Female, FEVER COMPARISON: CT chest and chest x-ray performed on 09/13/2020 TECHNIQUE: Single portable x-ray view of the chest performed on 10/26/2020 at 12:03 AM FINDINGS: The lungs are well expanded and are clear. There is no evidence of a pneumothorax. There i s a large retrocardiac opacity consistent with a hiatal hernia. The patient is slightly rotated towar ds the left. The cardiac silhouette stable and is prominent. The mediastinal contours are normal. No acute osseous abnormality is identified. The left shoulder is elevated. No acute soft tissue abnormalities are seen. Lines and tubes: None. IMPRESSION: 1. No evidence of acute intrathoracic disease. 2. Large hiatal hernia. Electronically signed by: Nancy Fallon DO 10/26/2020 1:33 AM DRIER OPERATOR HELPER Due to temporary technical issues with the PACS/Fluency reporting system, reports are being signed by the in house radiologists without review as a courtesy to insure prompt reporting. The interpreting radiologist is fully responsible for the content of the report.
--- NOTE | 2020-10-26 14:58 | P.SSS ---
Patient History Date of Service: 10/26/20 Reason for admission: FEVER History of Present Illness: MS. GAGE IS MODERATELY DEMENTED LADY WITH NON VERBAL STATUS OF UNKNOWN ORIGIN WHO LOST HER LATELY WITH CHF, COMES WITH LOW GRADE FEVER. SHE [facility]IDES AT [facility] AND SO SENT HER TO ER. ER DOCTOR DID CT CHEEST ABDOMEN AND PELVIS, UA AND CBC. SHE SHOW NO ACUTE PROCESS IN LUNGS OR URINE. SHE HAS ORGANOAXIAL STOMACH VOLVULUS AND LARGE HIATAL HERNIA THAT HAS ALL HER STOMACH AND PART OF TRANSVERSE COLON. SHE HERSELF DOES NOT TALK AND HAS NO HISTORY TO GIVE. SHE ALSO DOES NOT UNDERSTAND OR FOLLOW COMMAND SHE HAS GLOBAL APHASIA FOR LONG DURATION. SHE NEVER DID COMMUNICATE BEFORE LONG I KNOW HER ABOUT 2 YEARS. Allergies ciprofloxacin [From Cipro] Allergy (Verified 10/26/20 06:40) Hives ciprofloxacin HCl [From Cipro] Allergy (Verified 10/26/20 06:40) Hives Home Medications: Levothyroxine [Synthroid*] 88 mcg PO DAILY 10/26/20 Mirabegron [Myrbetriq] 1 tab PO DAILY 10/26/20 Quetiapine Fumarate [Seroquel] 25 mg PO BEDTIME 10/26/20 Raloxifene HCl [Evista*] 60 mg PO DAILY 10/26/20 cephALEXin [Cephalexin] 500 mg PO TID 10/26/20 - Past Medical/Surgical History Has patient received pneumonia vaccine in the past: Yes Diabetic: No -: rheumatoid arthritis -: knee pain -: [id number] dementia since 10 years ago -: hypothyroidism -: breast cancer -: macy knee replacement -: appendectomy -: hysterectomy - Family History Mother -: Lung disease Notes: malignant pleural effusion Father -: Liver disease Notes: cirrhosis - Social History Alcohol use: No CD- Drugs: No Caffeine use: No Review of Systems is unable to be obtained General: Weakness Physical Examination - Vital Signs Temperature: 99.5 F Blood Pressure: 128/71 Pulse: 91 Respirations: 16 Pulse Ox (%): 94 - Physical Exam General: Alert, In no apparent distress, Confused HEENT: Atraumatic, PERRLA, Mucous membr. moist/pink, EOMI, Sclerae nonicteric Neck: Supple, 2+ carotid pulse no bruit, No LAD, Without JVD or thyroid abnormal ity Respiratory: Clear to auscultation bilaterally, Normal air movement Cardiovascular: Regular rate/rhythm, Normal S1 S2 Gastrointestinal: Normal bowel sounds, No tenderness Musculoskeletal: No tenderness Integumentary: No rashes Neurological: Normal gait, Normal speech, Normal strength at 5/5 x4 extr, Normal tone, Normal affect Lymphatics: No axilla or inguinal lymphadenopathy - Studies Laboratory Data (last 24 hrs) 10/25/20 23:45: PT 12.4, INR 1.05, APTT 24.0 L 10/25/20 23:45: WBC 11.5 H, Hgb 11.2 L, Hct 33.4 L, Plt Count 239 10/25/20 23:45: Sodium 146 H, Potassium 3.7, BUN 19 H, Creatinine 0.88, Glucose 136 H, Total Bilirubin 0.6, AST 16, ALT 13, Alkaline Phosphatase 32 L, Amylase 28, Lipase 102 Microbiology Data (last 24 hrs): 10/25/20 23:50 Nasopharnyx Influenza Type A Antigen Screen - Final 10/25/20 23:50 Nasopharnyx Influenza Type B Antigen Screen - Final - Diagnosis (Problem(s)) (1) Fever Current Visit: Yes Status: Acute Plan: WITH SUCH A LARGE HIATAL HERNIA SHE MAY HAVE ASPIRATED AND NOT ABLE TO PROVE OR DISPROVE IT. WE WILL CONTINUE ANTBIOTICS FOR A FEW DAYS. THERE IS NO SIGN OF PNEUMONIA, UTI, OBSTRUCTION ON CLINICAL EXAMINATION OR ANY OTHER SOURCE OF INFECTION. SHE IS STABLE. IF SHE IS ABLE TO MOST LIKE WILL SEND HER BACK TO [facility] AM. 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 WITH SEVERE DEMENTIA, I SUSPECT ONLY COMFORT CARE IS NECESSARY. (3) Hydronephrosis Current Visit: Yes Status: Chronic Plan: NO SYMPTOMS. TO BE LEFT ALONE. (4) Dementia Current Visit: Yes Status: Chronic Plan: SHE HAS A NEURO DISORDER EVALUATED BY NEUROLOGIST. THEY ARE NOT SURE WHY SHE DEVELOPED GLOBAL APHASIA AND DEMENTIA. (5) Global aphasia Current Visit: Yes Status: Chronic (6) Hiatus hernia syndrome Current Visit: Yes Status: Chronic - Disposition Disposition: ROUTINE DISCHARGE
[2020-10-26] MEDS ORDERED: INFLUENZA VACCINE (for 3y+) 0.5 ML DOSE IMVAC ONE (15:00)
[2020-10-26] MEDS: QUETIAPINE 25 MG TAB PO SCH ×2 (17:38→21:00)
[2020-10-26 17:55] LABS: Urine Appearance CLEAR; Urine Bilirubin NEGATIVE (NEG); Urine Blood NEGATIVE (NEG); Urine Color YELLOW; Urine Glucose NEGATIVE (NEG); Urine Protein NEGATIVE (NEG); Urine Urobilinogen 0.2 mg/dL (0.2-1.0); Urine pH 5.5 (5.0-7.0)
[2020-10-26 18:57] LABS: Urine Microscopic Reflex NO UMIC
[2020-10-26] MEDS ORDERED: QUETIAPINE 25 MG TAB PO SCH (21:00)
[2020-10-27] MEDS: PIPER/TAZO/NS 3.375gm 3.375 GM/100 ML BAG IVPB SCH ×2 (00:24→05:44)
[2020-10-27 02:34] VITALS: O2SAT 94
[2020-10-27] MEDS ORDERED: LEVOTHYROXINE SOD 0.088 MG TAB PO SCH (06:30)
[2020-10-27] MEDS: QUETIAPINE 25 MG TAB PO SCH (07:01)
[2020-10-27 07:28] LABS: Absolute Lymphocytes (CBC) 0.9 K/uL (0.7-4.9); Basophils % 1.5 % (0-1.3); Hematocrit 32.9 % (36.0-45.0); Lymphocytes % 19.8 % (15.3-44.8); MPV 8.6 fL (7.6-11.3); RBC Red Blood Cell Count 3.17 M/uL (3.86-4.86)
[2020-10-27] MEDS: INSULIN -REGULAR HUMAN 50 UNIT/0.5 ML ML SQ SCH (07:30)
[2020-10-27 07:40] LABS: Albumin 2.9 g/dL (3.4-5.0); Bilirubin Total 0.7 mg/dL (0.2-1.0); Potassium 3.7 mmol/L (3.5-5.1)
[2020-10-27] MEDS ORDERED: RALOXIFENE HCL 60 MG TAB PO SCH (09:00)
[2020-10-27] MEDS ORDERED: MYRBETRIQ 50 MG PO SCH (09:00)
[2020-10-27 09:53] VITALS: BP 122/60; TEMP 97.1
== END 2020-10-27 09:47 | disposition home or self-care (01) | DRG 864 ==
LOC: ER 23:25 → ERHOLD 10-26 04:44 → 2ND 10-26 06:12
PROVIDERS: ADMIT Internal Medicine; ATTEND Internal Medicine
DX: R50.9 Fever, unspecified (principal); N13.30 Unspecified hydronephrosis; R47.01 Aphasia; K31.89 Other diseases of stomach and duodenum; K44.9 Diaphragmatic hernia without obstruction or gangrene; F03.90 Unspecified dementia, unspecified severity, without behavioral disturbance, psychotic disturbance, mood disturbance, and anxiety; E03.9 Hypothyroidism, unspecified; Z96.653 Presence of artificial knee joint, bilateral; Z90.49 Acquired absence of other specified parts of digestive tract; Z79.890 Hormone replacement therapy; Z90.710 Acquired absence of both cervix and uterus; Z79.899 Other long term (current) drug therapy; Z66 Do not resuscitate; Z88.1 Allergy status to other antibiotic agents; Z85.3 Personal history of malignant neoplasm of breast; Z20.828 Contact with and (suspected) exposure to other viral communicable diseases; Z23 Encounter for immunization
CPT/HCPCS: 36415; 70450; 71045; 71250; 74176; 80048; 80053; 80076; 81003; 81015; 82150; 82550; 82553; 82947; 83605; 83690; 84145; 84484; 85025; 85610; 85730; 87040; 87804; 90471; 93005; 99285; J0696; J2543; J7030; J7799; Q2035; U0003

== ENCOUNTER 2021-07-04 12:36 | Emergency (ER) | payer OTHER ==
[2021-07-04] MEDS ORDERED: CEFTRIAXONE/SWI 1gm 1 GM/10 ML SYR ONE (14:23)
--- NOTE | 2021-07-04 14:48 | RAD REPORT ---
EXAM DESCRIPTION: RAD - Chest Single View - 07/04/2021 2:27 pm CLINICAL HISTORY: COUGH Chest pain. COMPARISON: Chest Single View dated 10/26/2020; Chest Single View dated 10/26/2020; Chest Single Vie w dated 09/13/2020; Chest Pa And Lat (2 Views) dated 09/06/2020 FINDINGS: Portable technique limits examination quality. The lungs are grossly clear. The heart is normal in size. Large hiatal hernia.
[2021-07-04 15:01] LABS: Protime INR 1.05
[2021-07-04 15:05] LABS: Absolute Lymphocytes (CBC) 1.1 K/uL (0.7-4.9); Basophils % 1.1 % (0-1.3); Hematocrit 38.2 % (36.0-45.0); MPV 8.7 fL (7.6-11.3); RBC Red Blood Cell Count 3.68 M/uL (3.86-4.86)
[2021-07-04 15:14] LABS: Urine Blood Negative (Negative); Urine Glucose Negative (Negative); Urine Protein Negative (Negative); Urine Specific Gravity <=1.005 (1.005-1.030); Urine pH 5.5 (5.0-7.0)
[2021-07-04] MEDS ORDERED: NA CHLORIDE 0.9% 1,000 ML ONE (17:16)
[2021-07-04] MEDS ORDERED: AMOX/K CLAV 875 MG TAB ONE (17:48)
[2021-07-04 18:57] LABS: ALT/SGPT 23 U/L (12-78); AST/SGOT 34 U/L (15-37); Albumin 3.4 g/dL (3.4-5.0); Alkaline Phosphatase 30 U/L (45-117); BUN Blood Urea Nitrogen 10 mg/dL (7-18); Bicarbonate 29 mmol/L (21-32); Bilirubin Direct 0.2 mg/dL (0-0.2); Bilirubin Total 0.6 mg/dL (0.2-1.0); Glucose Level 106 mg/dL (74-106); Lipase 101 U/L (73-393); Magnesium 2.2 mg/dL (1.8-2.4); NT PRO-BNP 446 pg/mL (<450); Potassium 3.9 mmol/L (3.5-5.1); Protein, Total 6.6 g/dL (6.4-8.2); Sodium Level 147 mmol/L (136-145); Troponin (Emerg Dept Use Only) < 0.02 ng/mL (0.0-0.045)
--- NOTE | 2021-07-04 19:17 | ER ---
Nurse's Notes [facility] Name: Nilda Daigle Age: 80 yrs Sex: Female : 1940 Arrival Date: 07/04/2021 Time: 12:40 Bed 28 Private MD: Diagnosis: Fall (on) (from) other stairs and steps-BED;Dementia in other diseases classified elsewhere without behavioral disturbance;Congenital hiatus hernia-LARGE;UTI/ Urinary tract infection, site not specified;Dehydration Presentation: 07/04 12:48 Chief complaint: EMS states: toned out for SP02 of 90%, upon arrival pt was 99% on 2L ld1 NC. Coronavirus screen: At this time, the client does not indicate any symptoms associated with coronavirus-19. Ebola Screen: No symptoms or risks identified at this time. Initial Sepsis Screen: Does the patient meet any 2 criteria? RR > 20 per min. Mean Arterial Pressure (MAP) < 65. HR > 90 bpm. Yes Does the patient have a suspected source of infection? No. Patient's initial sepsis screen is negative. Risk Assessment: Do you want to hurt yourself or someone else? Patient reports no desire to harm self or others. Onset of symptoms was July 04, 2021. 12:48 Method Of Arrival: EMS: [facility] ld1 12:48 Acuity: TATIANA 3 ld1 Triage Assessment: 12:52 General: Appears in no apparent distress. comfortable, Behavior is calm, cooperative, ld1 appropriate for age. Pain: Denies pain. EENT: No signs and/or symptoms were reported regarding the EENT system. Neuro: Level of Consciousness is awake, alert, obeys commands, Oriented to person, place, time, situation. Cardiovascular: Capillary refill < 3 seconds Patient's skin is warm and dry. Respiratory: Airway is patent Respiratory effort is even, unlabored, Respiratory pattern is regular, symmetrical. GI: Abdomen is flat, non-distended, Reports lower abdominal pain, upper abdominal pain, constipation, cramping, diarrhea. : No signs and/or symptoms were reported regarding the genitourinary system. Derm: No signs and/or symptoms reported regarding the dermatologic system. Musculoskeletal: No signs and/or symptoms reported regarding the musculoskeletal system. Historical: - Allergies: 12:52 Ciprofloxacin; ld1 12:52 Cymbalta; ld1 - Home Meds: 12:52 Keflex Oral [Active]; levothyroxine oral [Active]; quetiapine Oral [Active]; raloxifene ld1 60 mg Oral tab [Active]; Myrbetriq Oral [Active]; - PMHx: 12:52 Arthritis; breast cancer; Dementia; Hypothyroidism; LYMPH EDEMA; Ulcers; ld1 - Immunization history:: Adult Immunizations up to date, Client reports receiving the 2nd dose of the Covid vaccine. - Social history:: Smoking status: Patient denies any tobacco usage or history of. - Family history:: not pertinent. Screenin:59 Abuse screen: Denies threats or abuse. Denies injuries from another. Nutritional ld1 screening: No deficits noted. Tuberculosis screening: No symptoms or risk factors identified. Fall Risk None identified. Assessment: 12:59 Reassessment: See triage assessment. ld1 17:07 Reassessment: Patient appears in no apparent distress at this time. No changes from ld1 previously documented assessment. Patient is alert, oriented x 3, equal unlabored respirations, skin warm/dry/pink. 18:45 Reassessment: Patient appears in no apparent distress at this time. No changes from ld1 previously documented assessment. Laying in bed with daughter at bedside. RR 18. Vital Signs: 12:48 BP 127 / 94; Pulse 103; Resp 22; Temp 99.4(A); Pulse Ox 98% on 2 lpm NC; Weight 83.91 ld1 kg; Height 5 ft. 4 in. (162.56 cm); 15:17 BP 132 / 78; Pulse 97; Resp 16; Temp 98.1(A); Pulse Ox 98% on 2 lpm NC; mh5 17:07 BP 129 / 67; Pulse 95; Resp 18; Pulse Ox 93% on R/A; ld1 12:48 Body Mass Index 31.75 (83.91 kg, 162.56 cm) ld1 ED Course: 12:40 Patient arrived in ED. ld1 12:52 Triage completed. ld1 12:52 Arm band placed on right wrist. ld1 12:59 Patient has correct armband on for positive identification. Bed in low position. Call ld1 light in reach. Side rails up X2. hall monitor on. Pulse ox on. NIBP on. Door closed. Noise minimized. Warm blanket given. 12:59 No provider procedures requiring assistance completed. Maintain EMS IV. Dressing ld1 intact. Good blood return noted. Site clean \T\ dry. Gauge \T\ site: 20 G RH. 13:52 Henry Esquivel MD is Attending Physician. alan 14:10 Inserted saline lock: 22 gauge in left forearm, using aseptic technique. Blood ds4 collected. 14:27 XRAY Chest (1 view) In Process Unspecified. EDMN 15:14 Warm blanket given. Pillow given. Head of bed Elevated CHANGED FROM WET CLOTHING AND mh5 BEDDING. 16:28 Paula Padilla, RN is Primary Nurse. ld1 Administered Medications: 14:14 Drug: Rocephin (cefTRIAXone) 1 grams Route: IV; Rate: per protocol; Site: right wrist; ld1 14:15 Follow up: Response: No adverse reaction ld1 17:06 Drug: NS 0.9% 1000 ml Route: IV; Rate: 1 bolus; Site: right wrist; ld1 17:36 Drug: Augmentin (Amoxicillin-Clavulanate) 875 mg Route: PO; ld1 17:36 Follow up: Response: No adverse reaction ld1 Outcome: 19:17 Discharge ordered by . [facility] 19:44 Discharged to home via wheelchair, with family. ld1 19:44 Condition: stable 19:44 Discharge instructions given to patient, family, Instructed on discharge instructions, follow up and referral plans. medication usage, Demonstrated understanding of instructions, follow-up care, medications. 19:45 Patient left the ED. ld1 Signatures: Dispatcher [employer] EDMN Henry Esquivel MD MD cha Swanson, Donovan ds4 [facility] Paula Padilla, RN RN ld1
--- NOTE | 2021-07-04 19:18 | EDPHYS ---
Physician Documentation [facility] Name: Nilda Daigle Age: 80 yrs Sex: Female : 1940 Arrival Date: 07/04/2021 Time: 12:40 Bed 28 Private MD: ED Physician Henry Esquivel HPI: 07/04 16:46 This 80 yrs old Female presents to ER via EMS with complaints of FALL OUT OF [facility] BED , SOFT. 16:46 USUAL STATE OF HEALTH. Onset: The symptoms/episode began/occurred just prior to [facility] arrival. Severity of symptoms: At their worst the symptoms were mild in the emergency department the symptoms are unchanged. The patient has not experienced similar symptoms in the past. Historical: - Allergies: 12:52 Ciprofloxacin; ld1 12:52 Cymbalta; ld1 - Home Meds: 12:52 Keflex Oral [Active]; levothyroxine oral [Active]; quetiapine Oral [Active]; raloxifene ld1 60 mg Oral tab [Active]; Myrbetriq Oral [Active]; - PMHx: 12:52 Arthritis; breast cancer; Dementia; Hypothyroidism; LYMPH EDEMA; Ulcers; ld1 - Immunization history:: Adult Immunizations up to date, Client reports receiving the 2nd dose of the Covid vaccine. - Social history:: Smoking status: Patient denies any tobacco usage or history of. - Family history:: not pertinent. ROS: 16:46 Constitutional: Negative for fever, chills, and weight loss, Eyes: Negative for injury, alan pain, redness, and discharge, ENT: Negative for injury, pain, and discharge, Neck: Negative for injury, pain, and swelling, Cardiovascular: Negative for chest pain, palpitations, and edema, Respiratory: Negative for shortness of breath, cough, wheezing, and pleuritic chest pain, Abdomen/GI: Negative for abdominal pain, nausea, vomiting, diarrhea, and constipation, Back: Negative for injury and pain, : Negative for injury, bleeding, discharge, and swelling, MS/Extremity: Negative for injury and deformity, Skin: Negative for injury, rash, and discoloration, Neuro: Negative for headache, weakness, numbness, tingling, and seizure, Psych: Negative for depression, anxiety, suicide ideation, homicidal ideation, and hallucinations, Allergy/Immunology: Negative for hives, rash, and allergies, Endocrine: Negative for neck swelling, polydipsia, polyuria, polyphagia, and marked weight changes, Hematologic/Lymphatic: Negative for swollen nodes, abnormal bleeding, and unusual bruising. Exam: 16:46 Constitutional: This is a well developed, well nourished patient who is awake, alert, alan and in no acute distress. Head/Face: Normocephalic, atraumatic. Eyes: Pupils equal round and reactive to light, extra-ocular motions intact. Lids and lashes normal. Conjunctiva and sclera are non-icteric and not injected. Cornea within normal limits. Periorbital areas with no swelling, redness, or edema. ENT: Nares patent. No nasal discharge, no septal abnormalities noted. Tympanic membranes are normal and external auditory canals are clear. Oropharynx with no redness, swelling, or masses, exudates, or evidence of obstruction, uvula midline. Mucous membranes moist. Neck: Trachea midline, no thyromegaly or masses palpated, and no cervical lymphadenopathy. Supple, full range of motion without nuchal rigidity, or vertebral point tenderness. No Meningismus. Chest/axilla: Normal chest wall appearance and motion. Nontender with no deformity. No lesions are appreciated. Cardiovascular: Regular rate and rhythm with a normal S1 and S2. No gallops, murmurs, or rubs. Normal PMI, no JVD. No pulse deficits. Respiratory: Lungs have equal breath sounds bilaterally, clear to auscultation and percussion. No rales, rhonchi or wheezes noted. No increased work of breathing, no retractions or nasal flaring. Abdomen/GI: Soft, non-tender, with normal bowel sounds. No distension or tympany. No guarding or rebound. No evidence of tenderness throughout. Back: No spinal tenderness. No costovertebral tenderness. Full range of motion. Female : Normal external genitalia. Skin: Warm, dry with normal turgor. Normal color with no rashes, no lesions, and no evidence of cellulitis. MS/ Extremity: Pulses equal, no cyanosis. Neurovascular intact. Full, normal range of motion. Neuro: Awake and alert, GCS 15, oriented to person, place, time, and situation. Cranial nerves II-XII grossly intact. Motor strength 5/5 in all extremities. Sensory grossly intact. Cerebellar exam normal. Normal gait. Psych: Awake, alert, with orientation to person, place and time. Behavior, mood, and affect are within normal limits. 17:15 ECG was reviewed by the Attending Physician. [facility] Vital Signs: 12:48 BP 127 / 94; Pulse 103; Resp 22; Temp 99.4(A); Pulse Ox 98% on 2 lpm NC; Weight 83.91 ld1 kg; Height 5 ft. 4 in. (162.56 cm); 15:17 BP 132 / 78; Pulse 97; Resp 16; Temp 98.1(A); Pulse Ox 98% on 2 lpm NC; mh5 17:07 BP 129 / 67; Pulse 95; Resp 18; Pulse Ox 93% on R/A; ld1 12:48 Body Mass Index 31.75 (83.91 kg, 162.56 cm) ld1 MDM: 13:52 Patient medically screened. [facility] 16:48 Data reviewed: vital signs, nurses notes, lab test result(s), EKG, radiologic studies. 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 Test interpretation: by ED physician or midlevel provider: ECG, plain radiologic studies. Counseling: I had a detailed discussion with the patient and/or guardian regarding: the historical points, exam findings, and any diagnostic results supporting the discharge/admit diagnosis, lab results, radiology results, the need for outpatient follow up, for definitive care, an allergy/field property loss specialist, a gas engineer. 07/04 13:50 Order name: Basic Metabolic Panel [facility] 07/04 13:50 Order name: CBC with Diff [facility] 07/04 13:50 Order name: LFT's [facility] 07/04 13:50 Order name: Magnesium [facility] 07/04 13:50 Order name: NT PRO-BNP; Complete Time: 19:13 [facility] 07/04 13:50 Order name: PT-INR; Complete Time: 16:39 [facility] 07/04 13:50 Order name: Troponin (emerg Dept Use Only); Complete Time: 19:13 [facility] 07/04 13:50 Order name: Lipase; Complete Time: 19:13 [facility] 07/04 13:50 Order name: Urine Culture [facility] 07/04 13:50 Order name: Lactate; Complete Time: 16:39 [facility] 07/04 13:50 Order name: Blood Culture Adult (2) [facility] 07/04 13:51 Order name: Basic Metabolic Panel; Complete Time: 19:13 [facility] 07/04 13:51 Order name: CBC with Automated Diff; Complete Time: 16:39 [facility] 07/04 13:50 Order name: XRAY Chest (1 view); Complete Time: 14:56 [facility] 07/04 13:50 Order name: EKG - Nurse/Tech; Complete Time: 14:15 [facility] 07/04 13:50 Order name: IV Saline Lock; Complete Time: 14:15 [facility] 07/04 13:50 Order name: Labs collected and sent; Complete Time: 17:06 [facility] 07/04 13:50 Order name: O2 Per Protocol; Complete Time: 13:51 [facility] 07/04 13:51 Order name: Liver (Hepatic) Function; Complete Time: 19:13 [facility] 07/04 13:51 Order name: Magnesium; Complete Time: 19:13 [facility] 07/04 15:14 Order name: Urine Dipstick-Ancillary [facility] 07/04 17:23 Order name: SARS-COV-2 RT PCR; Complete Time: 17:42 [facility] 07/04 18:57 Order name: Lactate Sepsis 2 HR Follow-up; Complete Time: 19:13 [facility] 07/04 13:50 Order name: O2 Sat Monitoring; Complete Time: 13:51 [facility] 07/04 13:50 Order name: Urine Dipstick-Ancillary (obtain specimen); Complete Time: 17:06 [facility] 07/04 19:16 Order name: PO challenge; Complete Time: 19:19 [facility] EC:15 Rate is 101 beats/min. Rhythm is regular. QRS [place] is Normal. AL interval is normal. [facility] QRS interval is normal. QT interval is normal. No Q waves. T waves are Normal. No ST changes noted. Clinical impression: NSR w/ Non-specific ST/T Changes and No evidence of ischemia. Interpreted by me. Reviewed by me. Administered Medications: 14:14 Drug: Rocephin (cefTRIAXone) 1 grams Route: IV; Rate: per protocol; Site: right wrist; ld1 14:15 Follow up: Response: No adverse reaction ld1 17:06 Drug: NS 0.9% 1000 ml Route: IV; Rate: 1 bolus; Site: right wrist; ld1 17:36 Drug: Augmentin (Amoxicillin-Clavulanate) 875 mg Route: PO; ld1 17:36 Follow up: Response: No adverse reaction ld1 Disposition Summary: 07/04/21 19:17 Discharge Ordered Location: Home [facility] Problem: new alan Symptoms: have improved alan Condition: Stable alan Diagnosis - Fall (on) (from) other stairs and steps - BED alan - Dementia in other diseases classified elsewhere without behavioral disturbance alan - Congenital hiatus hernia - LARGE alan - UTI/ Urinary tract infection, site not specified alan - Dehydration alan Followup: alan - With: Private Physician - When: 2 - 3 days - Reason: Recheck today's complaints, Continuance of care, Re-evaluation by your physician Discharge Instructions: - Discharge Summary Sheet alan - Dehydration, Elderly alan - Dysuria alan - Hiatal Hernia alan - Urinary Tract Infection, Adult alan - Dementia alan Forms: - Medication Reconciliation Form alan - Thank You Letter alan - Antibiotic Education alan - Prescription Opioid Use alan Prescriptions: - Augmentin 500-125 mg Oral Tablet - take 1 tablet by ORAL route every 12 hours for 7 days; 14 tablet; Refills: 0, alan Product Selection Permitted Signatures: Dispatcher [employer] EDMS Henry Esquivel MD MD cha Attema, Lee, PUBLIC HEALTH DIRECTOR-C PUBLIC HEALTH DIRECTOR-Cla1 Paula Padilla, RN RN ld1 Corrections: (The following items were deleted from the chart) 16:20 13:51 CORONAVIRUS+MR.LAB.BRZ ordered. EDMS EDMS 18:41 16:44 LACTATE+C.LAB.BRZ ordered. EDMS EDMS
[2021-07-04 19:54] VITALS: TEMP 98.1
[2021-07-04 19:56] VITALS: BP 129/67; O2SAT 93
--- NOTE | 2021-07-05 11:07 | EKG ---
Test Date: 2021-07-04 Test Time: 14:27:40 Disk Sander: YEISON MEASUREMENT RESULTS: Intervals: Rate: 101 WV: 174 QRSD: 74 QT: 366 QTc: 474 [place]: P: WV: 174 QRS: 7 T: 25 INTERPRETIVE STATEMENTS: Sinus tachycardia with premature atrial complexes Cannot rule out Anterior infarct, age undetermined Abnormal ECG Compared to ECG 10/25/2020 23:35:43 Atrial premature complex(es) now present Myocardial infarct finding now present Electronically Signed On 07-05-21 11:05:41 CDT by Mac Menendez
== END 2021-07-04 19:45 | disposition home or self-care (01) ==
LOC: ER 12:36
DX: N39.0 Urinary tract infection, site not specified (principal); E86.0 Dehydration; K44.9 Diaphragmatic hernia without obstruction or gangrene; F03.90 Unspecified dementia, unspecified severity, without behavioral disturbance, psychotic disturbance, mood disturbance, and anxiety; W06.XXXA Fall from bed, initial encounter; Z20.822 Contact with and (suspected) exposure to COVID-19; E03.9 Hypothyroidism, unspecified; Z85.3 Personal history of malignant neoplasm of breast; Z88.1 Allergy status to other antibiotic agents; Z88.8 Allergy status to other drugs, medicaments and biological substances
CPT/HCPCS: 93005; 87040 ×2; 87088; 85025; 87086; 80048; 36415; 83735; 85610; 80076; 83605 ×2; 81003; 84484; 83690; 83880; 71045; 96374; 99284; U0003; J0696; J7030

== ENCOUNTER 2021-08-21 13:39 | Inpatient (IN) | payer OTHER ==
[2021-08-21 14:09] LABS: Arterial Blood Carboxyhemoglob 1.2 % (0-1.5); Blood Gas Oxyhemoglobin 91.7 % (94-97); Blood O2 Saturation 93.8 % (92-98.5)
[2021-08-21 15:25] LABS: Absolute Lymphocytes (CBC) 0.5 K/uL (0.7-4.9); Basophils % 0.9 % (0-1.3); Hematocrit 42.2 % (36.0-45.0); Lymphocytes % 5.4 % (15.3-44.8); MPV 8.6 fL (7.6-11.3); Protime INR 1.08
--- NOTE | 2021-08-21 15:31 | RAD REPORT ---
EXAM DESCRIPTION: RAD - Chest Single View - 08/21/2021 3:10 pm CLINICAL HISTORY: Dyspnea;SOB COMPARISON: Chest Single View dated 07/04/2021; Chest Single View dated 10/26/2020; Chest Single View dated 10/26/2020; Chest Single View dated 09/13/2020 FINDINGS: Lines: None. Lungs: No evidence of edema or pneumonia. Pleural: No significant pleural effusions or pneumothorax. Cardiac: The heart size is within normal limits. Bones: No acute fractures. Other: Large hiatal hernia. IMPRESSION: No acute cardiopulmonary disease.
[2021-08-21 15:46] LABS: Albumin 3.6 g/dL (3.4-5.0); Bilirubin Direct 0.2 mg/dL (0-0.2); Bilirubin Total 0.5 mg/dL (0.2-1.0); Protein, Total 7.5 g/dL (6.4-8.2); Troponin (Emerg Dept Use Only) 0.02 ng/mL (0.0-0.045)
[2021-08-21 15:55] LABS: Magnesium 2.1 mg/dL (1.8-2.4); Potassium 3.6 mmol/L (3.5-5.1)
--- NOTE | 2021-08-21 16:44 | RAD REPORT ---
EXAM DESCRIPTION: CT - Chest For Pe Angio - 08/21/2021 4:31 pm CLINICAL HISTORY: DYSPNEA COMPARISON: Chest Abd Pelvis Wo Con dated 10/26/2020; Chest For Pe Angio dated 09/13/2020 FINDINGS: Chest Wall: No suspicious thyroid nodules or pathologic lymphadenopathy. Lungs: Atelectasis in lung bases is noted. Pleura: No significant effusions or pneumothorax. Mediastinum/leidy: Very large hiatal hernia with completely intrathoracic stomach. Pulmonary arteries/Aorta: Evaluation for pulmonary emboli is limited due to the degree of motion zuleika fact. Despite this, there is suspected pulmonary emboli in the segmental pulmonary artery is bilatera lly as well as the distal left main pulmonary artery. No aortic aneurysm. Heart: No significant pericardial effusion. Normal heart size. Upper abdomen: No acute abnormality. Bones: No acute abnormality. All CT scans are performed using dose optimization technique as appropriate and may include automated exposure control or mA/KV adjustment according to patient size. IMPRESSION: Limited due to fairly pronounced motion artifact. Despite this, pulmonary emboli are darcy pected with bilateral predominantly segmental emboli present. Low lung volumes due to the patient's v jerson large hiatal hernia. Associated atelectasis is present. No other acute process is seen.
[2021-08-21] MEDS ORDERED: ENOXAPARIN 60 MG/0.6 ML SQ ONE (17:19)
--- NOTE | 2021-08-21 17:52 | RAD REPORT ---
EXAM DESCRIPTION: US - Extrem Venous W Compress Cachorro - 08/21/2021 5:40 pm CLINICAL HISTORY: SWELLING COMPARISON: No comparisons FINDINGS: The posterior tibial vein is non compressible. No Doppler flow is identified. Nonocclusive thrombus is present in the popliteal vein. The femoral vein, common femoral vein, and greater saphen ous vein are patent. IMPRESSION: Positive for deep venous thrombosis involving the posterior tibial vein and popliteal ve in.
[2021-08-21 18:26] LABS: Blood Morphology Comment NOTED (NOT SEEN); Macrocytosis 1+; Platelet Estimate ADEQ; White Blood Cell Scan OK (OK)
--- NOTE | 2021-08-21 18:26 | ER ---
Nurse's Notes [facility] Name: Nilda Daigle Age: 80 yrs Sex: Female : 1940 Arrival Date: 08/21/2021 Time: 13:43 Bed 3 Private MD: Diagnosis: Pulmonary embolism without acute cor pulmonale Presentation: 08/21 13:43 Chief complaint: EMS states: " WE picked here from [place], her 02 was 82% on room tw5 air, and she had some audible wheezing'. Coronavirus screen: Vaccine status: Patient reports receiving the 2nd dose of the covid vaccine. Ebola Screen: Patient denies travel to an Ebola-affected area in the 21 days before illness onset. No symptoms or risks identified at this time. Initial Sepsis Screen: Does the patient meet any 2 criteria? RR > 20 per min. HR > 90 bpm. Yes Does the patient have a suspected source of infection? No. Patient's initial sepsis screen is negative. Risk Assessment: Do you want to hurt yourself or someone else? Unable to obtain. Onset of symptoms is unknown. Care prior to arrival: Medication(s) given: Albuterol Neb x 2, Atrovent Neb x 2, Solu-Medrol 125 mg. 13:43 Method Of Arrival: EMS: [facility] tw5 13:43 Acuity: TATIANA 3 tw5 Triage Assessment: 13:50 General: Appears uncomfortable, Behavior is cooperative, anxious. Pain: Noted to be tw5 restless. Respiratory: Reports shortness of breath Onset: The symptoms/episode began/occurred at an unknown time. the patient has moderate shortness of breath. Historical: - Allergies: 13:48 Ciprofloxacin; ss 13:48 Cymbalta; ss - Home Meds: 14:00 clotrimazole-betamethasone 1-0.05 % Topical crea 2 times per day [Active]; jd3 levothyroxine 88 mcg oral tab 1 tab once daily [Active]; metoprolol succinate 25 mg oral Tb24 1 tab once daily [Active]; Myrbetriq 50 mg oral Tb24 1 tab once daily [Active]; Nystop 100,000 unit/gram Topical powd 2 times per day [Active]; Premarin 0.625 mg/gram Vagl crea 0.5 applicatorful every Thursday and Thursday [Active]; quetiapine 25 mg oral tab 1 tab 3 times per day [Active]; raloxifene 60 mg oral tab 1 tab once daily [Active]; - PMHx: 13:48 Arthritis; breast cancer; Dementia; Hypothyroidism; LYMPH EDEMA; Ulcers; ss - Immunization history:: Client reports receiving the 2nd dose of the Covid vaccine. - Social history:: Smoking status: unknown. Screenin:53 Abuse screen: Denies threats or abuse. Denies injuries from another. Nutritional tw5 screening: No deficits noted. Tuberculosis screening: No symptoms or risk factors identified. Fall Risk None identified. Assessment: 13:53 General: Appears uncomfortable, Behavior is cooperative, anxious. Cardiovascular: tw5 Rhythm is sinus tachycardia. Respiratory: Airway is patent Trachea midline Respiratory effort is labored, with retractions, Breath sounds with wheezes bilaterally. 17:01 Reassessment: No changes from previously documented assessment. Patient and/or family tw5 updated on plan of care and expected duration. Pain level reassessed. Vital Signs: 13:43 BP 127 / 76; Pulse 128; Resp 30; Temp 99.9(O); Pulse Ox 96% on 6% Simple Mask; Weight tw5 72.57 kg; Height 4 ft. 11 in. (149.86 cm); 13:51 BP 127 / 75; Pulse 128; Resp 29; Pulse Ox 40% Venturi mask; jd3 15:41 BP 111 / 93; Pulse 120; Resp 25 S; Pulse Ox 96% on Venturi mask; jd3 16:49 Weight 61.69 kg; tw5 17:01 BP 137 / 79; Pulse 116; Resp 33; Pulse Ox 92% on 40% Venturi mask; tw5 19:42 BP 136 / 81; Pulse 104; Resp 24; Pulse Ox 95% on 12% Venturi mask; Pain 0/10; wg 16:49 Body Mass Index 27.47 (61.69 kg, 149.86 cm) tw5 Vitals: 19:40 Cardiac Rhythm Assessment Regular Sinus tach. wg ED Course: 13:43 Patient arrived in ED. tw5 13:43 Pablo Marie MD is Attending Physician. kdr 13:47 Triage completed. tw5 13:50 Radha Brandt is Primary Nurse. tw5 13:50 Arm band placed on left wrist. EKG completed in triage. Results shown to MD. tw5 13:53 Patient has correct armband on for positive identification. Placed in gown. Bed in low tw5 position. Call light in reach. Side rails up X2. Adult w/ patient. manager monitoring on. Pulse ox on. NIBP on. Door closed. Noise minimized. Lights dimmed. Moved to private room. Warm blanket given. Verbal reassurance given. 13:53 Maintain EMS IV. Dressing intact. Good blood return noted. Site clean \\T\\ dry. Gauge \\T\\ tw 5 site: 20 R wrist. Oxygen administration via Venturi mask \\T\\ 12L/min - 40%. 14:15 First set of blood cultures drawn by me. jd3 14:15 radiologic technology teacher at the bedside drawing labs. jd3 14:37 Inserted saline lock: 22 gauge in left hand, using aseptic technique. IV discontinued, jl7 intact, bleeding controlled, No redness/swelling at site. Pressure dressing applied, R Wrist DC due to limb alert on that arm. 14:38 COVID-19 (Coronavirus) Document "Date of Onset" if Symptomatic Sent. jd3 15:11 XRAY Chest (1 view) In Process Unspecified. EDMS 16:05 Inserted saline lock: 20 gauge in left antecubital area, using aseptic technique. jl7 16:31 CT Chest For PE Angio In Process Unspecified. EDMS 17:40 US Extremity Venous W Compression Cachorro In Process Unspecified. EDMS 18:24 Alfie Herrera MD is Hospitalizing Provider. kdr 19:19 Blood Culture Adult (2) Sent. wg 19:19 Basic Metabolic Panel Sent. wg 19:19 Troponin I Sent. wg 19:19 NT PRO-BNP Sent. wg 19:19 NT PRO-BNP Sent. wg 19:19 Basic Metabolic Panel Sent. wg 19:19 CBC with Automated Diff Sent. wg 19:19 CBC with Automated Diff Sent. wg 20:02 Patient admitted, IV remains in place. wg Administered Medications: 16:57 Drug: Lovenox (enoxaparin) 1 mg/kg Route: Sub-Q; Site: left lower abdomen; tw5 19:47 Follow up: Response: No adverse reaction wg 19:37 Drug: Rocephin - (cefTRIAXone) 1 grams Route: IVPB; Infused Over: 30 mins; Site: left wg hand; 19:50 Follow up: Response: No adverse reaction; IV Status: Completed infusion; IV Intake: 50mlwg Intake: 19:50 IV: 50ml; Total: 50ml. Outcome: 18:25 Decision to Hospitalize by Provider. kdr 20:01 Admitted to Tele accompanied by tech, via stretcher, room 225, with oxygen, Report wg called to CAROLA Reed 20:16 Patient left the ED. ms4 Signatures: Dispatcher [employer] EDMS Pablo Marie MD MD kdr Jojo Woo RN RN ss Chadd Gonzalez RN RN jl7 Holden Augustine RN RN jd3 Denise Mccracken RN RN ms4 Pasquale Escalante RN wg Wood, Tiffany tw5 Corrections: (The following items were deleted from the chart) 14:58 14:38 CORONAVIRUS drawn and sent. [facility] EDMS 15:41 13:51 BP 127 / 7; Pulse 128bpm; Resp 29bpm; Pulse Ox 02 40% Venturi mask; tw5 j 15:41 13:51 BP 111 / 93; Pulse 120bpm; Resp 24bpm; Spontaneous; Pulse Ox 96% Venturi mask; [id number] 16:07 14:37 Inserted saline lock: 24 gauge in left hand, using aseptic technique. IV jl7 discontinued, intact, bleeding controlled, No redness/swelling at site. Pressure dressing applied, L Wrist DC due to limb alert on that arm. jd3 19:46 19:42 Cardiac Rhythm Assessment Regular Sinus rhythm [facility] 19:47 19:40 Cardiac Rhythm Assessment Regular Sinus rhythm [facility]
--- NOTE | 2021-08-21 18:26 | EDPHYS ---
Physician Documentation [facility] Name: Nilda Daigle Age: 80 yrs Sex: Female : 1940 Arrival Date: 08/21/2021 Time: 13:43 Bed 3 Private MD: ED Physician Pablo Marie HPI: 08/22 17:10 This 80 yrs old Female presents to ER via EMS with complaints of Shortness Of kdr Breath. 17:10 The patient has shortness of breath at rest, with light activity. Onset: The kdr symptoms/episode began/occurred at an unknown time. Duration: The symptoms are continuous, and are unchanged since they started. The patient's shortness of breath is aggravated by nothing, is alleviated by nothing. Associated signs and symptoms: Pertinent positives: This patient does not have any pertinent positive signs or symptoms associated with shortness of breath. Severity of symptoms: At their worst the symptoms were mild in the emergency department the symptoms are unchanged. The patient has experienced similar episodes in the past, a few times. It is unknown whether or not the patient has recently seen a physician. Patient was picked up by [facility] when she was noted to have an oxygen saturation of 82%. She was also thought to be wheezing. Historical: - Allergies: 08/21 13:48 Ciprofloxacin; ss 13:48 Cymbalta; ss - Home Meds: 14:00 clotrimazole-betamethasone 1-0.05 % Topical crea 2 times per day [Active]; jd3 levothyroxine 88 mcg oral tab 1 tab once daily [Active]; metoprolol succinate 25 mg oral Tb24 1 tab once daily [Active]; Myrbetriq 50 mg oral Tb24 1 tab once daily [Active]; Nystop 100,000 unit/gram Topical powd 2 times per day [Active]; Premarin 0.625 mg/gram Vagl crea 0.5 applicatorful every Thursday and Thursday [Active]; quetiapine 25 mg oral tab 1 tab 3 times per day [Active]; raloxifene 60 mg oral tab 1 tab once daily [Active]; - PMHx: 13:48 Arthritis; breast cancer; Dementia; Hypothyroidism; LYMPH EDEMA; Ulcers; ss - Immunization history:: Client reports receiving the 2nd dose of the Covid vaccine. - Social history:: Smoking status: unknown. ROS: 08/22 17:10 Constitutional: Negative for fever, chills, and weight loss, Eyes: Negative for injury, kdr pain, redness, and discharge, ENT: Negative for injury, pain, and discharge, Neck: Negative for injury, pain, and swelling, Cardiovascular: Negative for chest pain, palpitations, and edema, Abdomen/GI: Negative for abdominal pain, nausea, vomiting, diarrhea, and constipation, Back: Negative for injury and pain, : Negative for injury, bleeding, discharge, and swelling, MS/Extremity: Negative for injury and deformity, Skin: Negative for injury, rash, and discoloration, Neuro: Negative for headache, weakness, numbness, tingling, and seizure activity. Psych: Negative for depression, anxiety, suicide ideation, homicidal ideation, and hallucinations, Allergy/Immunology: Negative for hives, rash, and allergies, Endocrine: Negative for neck swelling, polydipsia, polyuria, polyphagia, and marked weight changes, Hematologic/Lymphatic: Negative for swollen nodes, abnormal bleeding, and unusual bruising. Respiratory: Positive for cough, with no reported sputum, dyspnea on exertion, shortness of breath, wheezing. Exam: 08/21 13:53 ECG was reviewed by the Attending Physician. kdr 08/22 17:10 Constitutional: This is a well developed, well nourished patient who is awake, alert, kdr and in no acute distress. Head/Face: Normocephalic, atraumatic. Eyes: Pupils equal round and reactive to light, extra-ocular motions intact. Lids and lashes normal. Conjunctiva and sclera are non-icteric and not injected. Cornea within normal limits. Periorbital areas with no swelling, redness, or edema. Neck: Trachea midline, no thyromegaly or masses palpated, and no cervical lymphadenopathy. Supple, full range of motion without nuchal rigidity, or vertebral point tenderness. No Meningismus. Chest/axilla: Normal chest wall appearance and motion. Nontender with no deformity. No lesions are appreciated. Cardiovascular: Regular rate and rhythm with a normal S1 and S2. No gallops, murmurs, or rubs. Normal PMI, no JVD. No pulse deficits. Abdomen/GI: Soft, non-tender, with normal bowel sounds. No distension or tympany. No guarding or rebound. No evidence of tenderness throughout. Back: No spinal tenderness. No costovertebral tenderness. Full range of motion. Skin: Warm, dry with normal turgor. Normal color with no rashes, no lesions, and no evidence of cellulitis. MS/ Extremity: Pulses equal, no cyanosis. Neurovascular intact. Full, normal range of motion. Neuro: Awake and alert, GCS 15, oriented to person, place, time, and situation. Cranial nerves II-XII grossly intact. Motor strength 5/5 in all extremities. Sensory grossly intact. Cerebellar exam normal. Normal gait. Psych: Awake, alert, with orientation to person, place and time. Behavior, mood, and affect are within normal limits. Respiratory: the patient does not display signs of respiratory distress, Respirations: normal, Breath sounds: rales, rhonchi, that are mild, are scattered, wheezing: that is mild, is scattered. Vital Signs: 08/21 13:43 BP 127 / 76; Pulse 128; Resp 30; Temp 99.9(O); Pulse Ox 96% on 6% Simple Mask; Weight tw5 72.57 kg; Height 4 ft. 11 in. (149.86 cm); 13:51 BP 127 / 75; Pulse 128; Resp 29; Pulse Ox 40% Venturi mask; jd3 15:41 BP 111 / 93; Pulse 120; Resp 25 S; Pulse Ox 96% on Venturi mask; jd3 16:49 Weight 61.69 kg; tw5 17:01 BP 137 / 79; Pulse 116; Resp 33; Pulse Ox 92% on 40% Venturi mask; tw5 19:42 BP 136 / 81; Pulse 104; Resp 24; Pulse Ox 95% on 12% Venturi mask; Pain 0/10; wg 16:49 Body Mass Index 27.47 (61.69 kg, 149.86 cm) tw5 MDM: 18:25 Patient medically screened. kdr 08/22 17:10 Data reviewed: vital signs, nurses notes, lab test result(s), radiologic studies. kdr Counseling: I had a detailed discussion with the patient and/or guardian regarding: the historical points, exam findings, and any diagnostic results supporting the discharge/admit diagnosis, lab results, radiology results, the need for further work-up and treatment in the hospital. 08/21 13:44 Order name: Basic Metabolic Panel; Complete Time: 16:42 kdr 10/20 13:44 Order name: CBC with Diff; Complete Time: 18:51 kdr 08/21 13:44 Order name: LFT's; Complete Time: 16:42 kdr 08/21 13:44 Order name: Magnesium; Complete Time: 16:42 kdr 08/21 13:44 Order name: NT PRO-BNP; Complete Time: 16:42 kdr 08/21 13:44 Order name: PT-INR; Complete Time: 15:34 kdr 08/21 13:44 Order name: Troponin (emerg Dept Use Only); Complete Time: 16:42 kdr 08/21 13:57 Order name: COVID-19 (Coronavirus) Document "Date of Onset" if Symptomatic 08/21 13:58 Order name: Blood Culture Adult (2) 08/21 13:58 Order name: Lactate; Complete Time: 16:42 tw5 08/21 13:58 Order name: Procalcitonin; Complete Time: 16:42 tw5 08/21 13:58 Order name: ABG; Complete Time: 15:34 tw5 08/21 14:58 Order name: SARS-COV-2 RT PCR; Complete Time: 16:42 EDMS 08/21 13:44 Order name: XRAY Chest (1 view); Complete Time: 15:34 kdr 08/21 15:45 Order name: CT Chest For PE Angio; Complete Time: 18:51 kdr 08/21 16:45 Order name: US Extremity Venous W Compression Cachorro; Complete Time: 18:51 kdr 08/21 18:26 Order name: CBC Smear Scan; Complete Time: 18:51 EDMS 08/21 18:47 Order name: Basic Metabolic Panel EDMS 08/21 18:47 Order name: Basic Metabolic Panel EDMS 08/21 18:47 Order name: NT PRO-BNP EDMS 08/21 18:47 Order name: NT PRO-BNP EDMS 08/21 18:47 Order name: Troponin I EDMS 08/21 18:47 Order name: CBC with Automated Diff EDMS 08/21 18:47 Order name: CBC with Automated Diff EDMS 08/21 18:47 Order name: Chest Single View EDMS 08/21 18:47 Order name: Chest Single View EDMS 08/21 19:10 Order name: Lactate Sepsis 2 HR Follow-up; Complete Time: 19:11 EDMS 08/21 13:44 Order name: EKG; Complete Time: 13:44 kdr 08/21 13:44 Order name: Cardiac monitoring; Complete Time: 13:57 kdr 08/21 13:44 Order name: EKG - Nurse/Tech; Complete Time: 13:57 kdr 08/21 13:44 Order name: IV Saline Lock; Complete Time: 13:57 kdr 08/21 13:44 Order name: Labs collected and sent; Complete Time: 19: kdr 08/21 13:44 Order name: O2 Per Protocol; Complete Time: 13:57 kdr 08/21 13:44 Order name: O2 Sat Monitoring; Complete Time: 13:57 kdr 08/21 18:47 Order name: Regular; Complete Time: 19:19 EDMS EC/20 13:53 Rate is 127 beats/min. Rhythm is regular, Sinus tachycardia with No ectopy. QRS [place]ona is kdr Normal. ME interval is normal. QRS interval is normal. QT interval is normal. Clinical impression: Sinus tachycardia. Administered Medications: 16:57 Drug: Lovenox (enoxaparin) 1 mg/kg Route: Sub-Q; Site: left lower abdomen; tw5 19:47 Follow up: Response: No adverse reaction 19:37 Drug: Rocephin - (cefTRIAXone) 1 grams Route: IVPB; Infused Over: 30 mins; Site: left wg hand; 19:50 Follow up: Response: No adverse reaction; IV Status: Completed infusion; IV Intake: 50mlwg Disposition Summary: 08/21/21 18:25 Hospitalization Ordered Hospitalization Status: Inpatient Admission kdr Provider: Alfie Herrera Location: Telemetry/MedSurg (Inpatient) kdr Condition: Fair kdr Problem: new kdr Symptoms: have improved kdr Bed/Room Type: Standard kdr Room Assignment: 225(08/21/21 19:08) eb1 Diagnosis - Pulmonary embolism without acute cor pulmonale kdr Forms: - Medication Reconciliation Form kdr - SBAR form kdr Signatures: Dispatcher [employer] EDMS Pablo Marie MD MD kdr Jojo Woo RN RN ss Davies, Jonathon, RN RN Annabel Gomez RN RN eb1 Pasquale Escalante RN wg Wood, Tiffany tw5 Corrections: (The following items were deleted from the chart) 14:58 13:57 CORONAVIRUS ordered. EDMS EDMS 19:08 18:25 kdr eb1
[2021-08-21] MEDS ORDERED: ALBUTEROL 2.5 MG/3 ML NEB SOL NEB PRN (18:39)
[2021-08-21] MEDS ORDERED: IPRATROPIUM BROM 0.5MG/2.5ML NEB PRN (18:39)
[2021-08-21] MEDS ORDERED: ACETAMINOPHEN 500 MG TAB PO PRN (18:39)
[2021-08-21] MEDS ORDERED: ONDANSETRON 4 MG/2 ML VIAL IV PRN (18:39)
[2021-08-21] MEDS ORDERED: CEFTRIAXONE 1000 MG/VIAL ONE (19:56)
[2021-08-21] MEDS ORDERED: NA CHLORIDE 0.9% 50 ML ONE (19:56)
[2021-08-21] MEDS ORDERED: ENOXAPARIN 80 MG/0.8 ML SQ SCH (21:00)
[2021-08-21] MEDS ORDERED: CEFTRIAXONE 1 GM/NS 50 ML 1 GM/50 ML BAG IV SCH (21:00)
[2021-08-22 06:46] LABS: Absolute Lymphocytes (CBC) 1.1 K/uL (0.7-4.9); Basophils % 0.7 % (0-1.3); Hematocrit 39.6 % (36.0-45.0); Lymphocytes % 11.3 % (15.3-44.8); MPV 8.8 fL (7.6-11.3); RBC Red Blood Cell Count 3.82 M/uL (3.86-4.86)
[2021-08-22 07:02] LABS: BUN Blood Urea Nitrogen 12 mg/dL (7-18); Bicarbonate 25 mmol/L (21-32); Glucose Level 109 mg/dL (74-106); NT PRO-BNP 842 pg/mL (<450); Potassium 3.9 mmol/L (3.5-5.1); Sodium Level 147 mmol/L (136-145)
--- NOTE | 2021-08-22 07:21 | RAD REPORT ---
EXAM DESCRIPTION: Luis Single View08/22/2021 6:56 am CLINICAL HISTORY: Chest pain COMPARISON: August 29, 2021 FINDINGS: The lungs appear clear of acute infiltrate. The heart is mildly enlarged. Large hiatal hernia IMPRESSION: No acute abnormalities displayed
[2021-08-22] MEDS ORDERED: ENOXAPARIN 80 MG/0.8 ML SQ SCH (09:00)
[2021-08-22] MEDS ORDERED: ENOXAPARIN 60 MG/0.6 ML SQ SCH (09:00)
[2021-08-22] MEDS: APIXABAN 5 MG TABLET PO SCH ×2 (09:51→20:02)
[2021-08-22] MEDS: D5W 1,000 ML IV SCH ×2 (09:51→20:02)
--- NOTE | 2021-08-22 12:40 | P.CNS ---
Date of Consult: 08/22/21 Reason for Consult: DVT pulmonary embolism Chief Complaint: Hypoxemia History of Present Illness: Patient is 80 years of age lives in [place] and found to be hypoxic admitted with a diagnosis of DVT and pulmonary embolism patient has frontotemporal dementia daughters at the bedside currently on oxygen prior history of thromboembolism currently stable Allergies ciprofloxacin [From Cipro] Allergy (Verified 10/26/20 06:40) Hives ciprofloxacin HCl [From Cipro] Allergy (Verified 10/26/20 06:40) Hives - Past Medical/Surgical History Diabetic: No -: rheumatoid arthritis -: knee pain -: [id number]-pfsqxlbf dementia since 10 years ago -: hypothyroidism -: breast cancer -: macy knee replacement -: appendectomy -: hysterectomy - Family History Mother Medical History: Lung disease Notes: malignant pleural effusion Father Medical History: Liver disease Notes: cirrhosis - Social History Smoking Status: Unknown if ever smoked Alcohol use: No CD- Drugs: No Caffeine use: Yes Place [facility]idence[facility] Review of Systems is unable to be obtained Physical Examination Temp Pulse Resp BP Pulse Ox 98.1 F 103 H 16 147/71 H 96 08/22/21 12:00 08/22/21 12:00 08/22/21 12:00 08/22/21 12:00 08/22/21 12:00 General: Alert, Cooperative Gastrointestinal: Normal bowel sounds, Soft and benign Musculoskeletal: No clubbing Integumentary: No rashes Laboratory Data (last 24 hrs) 08/21/21 14:55: PT 12.4, INR 1.08 08/21/21 14:55: WBC 9.60, Hgb 13.9, Hct 42.2, Plt Count 218 08/21/21 14:55: Sodium 146 H, Potassium 3.6, BUN 14, Creatinine 0.86, Glucose 159 H, Magnesium 2.1, Total Bilirubin 0.5, AST 22, ALT 27, Alkaline Phosphatase 34 L 08/21/21 14:00: Troponin I Cancelled - Problems (1) Pulmonary embolism Current Visit: Yes Status: Acute Plan: Patient is 80 years of age admitted with DVT pulmonary embolism currently stable changed to p.o. Eliquis or Xarelto she will need lifelong anticoagulation patient is low risk for bleeding right now hyponatremia start on D5 water titrate her O2 down blood pressure stable baseline she is able to ambulate CT scan labs reviewed
--- NOTE | 2021-08-22 17:22 | CON ---
Date of Consultation: 08/22/2021 Reason For Consultation: Pulmonary embolus. History Of Present Illness: An 80-year-old female was brought in due to shortness of breath, found t o be hypoxic, diagnosed with DVT and pulmonary embolism. The patient is known to have history of dem entia, arthritis, breast cancer, hypothyroidism. I saw her by bedside, breathing comfortably with th e oxygen mask. Past Medical History: As outlined above in the HPI. Medications: Refer to reconciliation sheet for detailed list. Allergies: CIPROFLOXACIN. Family History: No premature coronary artery disease. Social History: Does smoke or drink. Does not use any drugs. Review of Systems: All systems reviewed and they were negative except for what mentioned in HPI. Physical Examination: Vital Signs: Reviewed. Head and Neck: Pupils are equal, reactive to light. Intact eye movements. No JVD. No cervical lym phadenopathy. Neck: Supple. Thyroid is not enlarged. Lungs: Decreased breathing sounds bilaterally with increased respiratory effort. Heart: Regular rate and rhythm. No extra sounds. Abdomen: Soft, nontender. Bowel sounds positive. No organomegaly. No hernia or masses. No rigidi ty or rebound. Extremities: No clubbing or cyanosis. Skin: No rashes. Neurologic: Alert, awake. No acute focal deficits appreciated. Investigations: CT scan showed bilateral segmental pulmonary emboli. Venous Doppler showed DVT. Assessment And Recommendations: Pulmonary embolus, on apixaban. Continue current management and oxy gen supportive therapy and obtain an echocardiogram. /ELIEZERL Voice ID: [id number] Report ID: [id number]
[2021-08-22 20:48] VITALS: BMI 32.7
[2021-08-22] MEDS ORDERED: CLOTRIMAZ/BETAMETH CREAM 15GM TOP PRN (21:06)
--- NOTE | 2021-08-22 21:18 | P.HP ---
Certification for Inpatient Patient admitted to: Inpatient With expected LOS: >2 Midnights Practitioner: I am a practitioner with admitting privileges, knowledge of patient current condition, hospital course, and medical plan of care. Services: Services provided to patient in accordance with Admission requirements found in Title 42 Section 412.3 of the Code of Federal Regulations Patient History Date of Service: 08/22/21 Reason for admission: Hypoxemia History of Present Illness: PATIENT WHO HAS SEVERE DEMENTIA AND IS NON VERBAL FOR LONG DURATION WHO LIVES AT THE [facility] COMES WITH DYSPNEA AND HYPOXIA. SHE HAS PE ON CT SCAN. SHE IS NOW ON ELIQUIS BID. SHE WAS GIVEN LOVENOX BY ER DOCTOR. SHE IS NON AMBULATORY MOST OF THE TIME. Allergies ciprofloxacin [From Cipro] Allergy (Verified 10/26/20 06:40) Hives ciprofloxacin HCl [From Cipro] Allergy (Verified 10/26/20 06:40) Hives Home medications list reviewed: Yes Home Medications: Clotrim/Betameth Cream [Lotrisone Cream*] 1 jordan TOP Q12HR PRN 08/22/21 Estrogens,Conj [Premarin*] 0.5 appl VAG MO,FR 08/22/21 Levothyroxine Sodium [Levothyroxine] 1 tab PO [id number] 08/22/21 Metoprolol Succinate 1 tab PO DAILY 08/22/21 Mirabegron [Myrbetriq] 1 tab PO DAILY 08/22/21 Nystatin [Nystop] 100,000 pwd Q12HP PRN 08/22/21 Quetiapine Fumarate [Seroquel] 1 tab PO DAILY 08/22/21 Raloxifene HCl 1 tab PO DAILY 08/22/21 - Past Medical/Surgical History Has patient received pneumonia vaccine in the past: Yes Diabetic: No -: rheumatoid arthritis -: knee pain -: ehzcuql-roagyn-pszujjeb dementia since 10 years ago -: hypothyroidism -: breast cancer -: macy knee replacement -: appendectomy -: hysterectomy - Family History Mother -: Lung disease Notes: malignant pleural effusion Father -: Liver disease Notes: cirrhosis - Social History Smoking Status: Never smoker Alcohol use: No CD- Drugs: No Caffeine use: Yes Place of Residence: [facility] Review of Systems is unable to be obtained Physical Examination - Vital Signs Temperature: 97.9 F Blood Pressure: 131/78 Pulse: 103 Respirations: 16 Pulse Ox (%): 95 - Physical Exam General: Alert, In no apparent distress HEENT: Atraumatic Neck: Supple, JVD not distended Respiratory: Normal air movement, Diminished Cardiovascular: No edema, Normal S1 S2 Gastrointestinal: Normal bowel sounds Integumentary: No rashes Neurological: Abnormal speech (HAS NOT TALKED FOR YEARS. NEUROLOGISTS DON'T HAVE ANSWER.) - Studies Laboratory Data (last 24 hrs) 08/21/21 14:00: Troponin I Cancelled Microbiology Data (last 24 hrs): 08/21/21 14:55 Blood - Blood Anaerobic Blood Culture - Final 08/21/21 14:15 Blood - Blood Anaerobic Blood Culture - Final Assessment and Plan - Problems (Diagnosis) (1) Pulmonary embolism Current Visit: Yes Status: Acute Plan: CHANGED TO ELIQUIS [facility] FOR HER FAMILY WILL TALK TO CARD DECORATOR. THIS IS UNPROVOKED PE. WITH CONTINUED BED BOUND STATUS , SHE WILL BE ON LOW DOSE AC AFTER 3 MONTHS. STOP EVISTA. (2) Dementia Current Visit: No Status: Chronic Plan: SEVERE UNCHANGED. SHE DID NOT HAVE BENEFIT OF MEDS. WHEN JOSUE WAS ALIVE HE HAD DECIDED NOT TO CONTINUE MEDS. 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
[2021-08-23] MEDS: LEVOTHYROXINE SOD 0.088 MG TAB PO SCH (05:25)
[2021-08-23] MEDS ORDERED: CLOTRIMAZ/BETAMETH CREAM 15GM TOP PRN (07:15)
[2021-08-23] MEDS: HOME MED 1 EA UNK (Mirabegron [Myrbetriq] 50 MG Tab.Er.24h) PO SCH (09:00)
[2021-08-23] MEDS: QUETIAPINE 25 MG TAB PO SCH (09:50)
[2021-08-23] MEDS: APIXABAN 5 MG TABLET PO SCH ×2 (09:50→20:27)
[2021-08-23] MEDS: METOPROLOL XL 25 MG TAB PO SCH (10:09)
[2021-08-23] MEDS: D5W 1,000 ML IV SCH ×2 (10:10→15:05)
--- NOTE | 2021-08-23 21:12 | P.PN ---
Subjective Date of Service: 08/23/21 Chief Complaint: Hypoxemia Subjective: Improving SHE IS STABLE TO GO BACK TO [facility] BUT WITH NEEDING OXYGEN SHE CAN'T GO . MEDICARE WILL NOT PAY FOR OXYGEN FOR CAUSES OTHER THAN COPD, COVID AND CHF. Physical Examination - Vital Signs Temperature: 97.5 F Blood Pressure: 137/65 Pulse: 81 Respirations: 16 Pulse Ox (%): 94 - Physical Exam General: Cooperative, Mild distress, Confused (AT BASELINE , NON VERBAL, NO CHANGES.), Obese HEENT: Atraumatic, PERRLA, EOMI Neck: Supple, JVD not distended Respiratory: Clear to auscultation bilaterally, Normal air movement Cardiovascular: Regular rate/rhythm, Normal S1 S2 Gastrointestinal: Normal bowel sounds, No tenderness Musculoskeletal: No tenderness Integumentary: No rashes Neurological: Normal speech, Normal tone, Normal affect Lymphatics: No axilla or inguinal lymphadenopathy - Studies Medications List Reviewed: Yes Assessment And Plan - Current Problems (Diagnosis) (1) Pulmonary embolism Current Visit: Yes Status: Acute Plan: CHANGED TO ELIQUMARCUS [facility] FOR HER FAMILY WILL TALK TO INTERFACE DEVELOPER. THIS IS UNPROVOKED PE. WITH CONTINUED BED BOUND STATUS , SHE WILL BE ON LOW DOSE AC AFTER 3 MONTHS. STOP EVISTA. HYPOXIA CONTINUES AT 85% SHE WILL HAVE TO STAY UNTIL SHE IS OFF OXYGEN. SHE HAS NO QUALIFYING DIAGNOSIS FOR OXYGEN AT HOME. (2) Dementia Current Visit: No Status: Chronic Plan: SEVERE UNCHANGED. SHE DID NOT HAVE BENEFIT OF MEDS. WHEN JOSUE WAS ALIVE HE HAD DECIDED NOT TO CONTINUE MEDS. 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
--- NOTE | 2021-08-23 21:20 | P.PN ---
Subjective Date of Service: 08/22/21 Chief Complaint: Hypoxemia Subjective: Improving THIS IS DAY TWO NOTE FOR THE PATIENT. SHE IS STABLE, TOLERATE MEDS AND NO COMPLICATIONS YET STILL HYPOXIC. Physical Examination - Vital Signs Temperature: 97.5 F Blood Pressure: 137/65 Pulse: 81 Respirations: 16 Pulse Ox (%): 94 - Physical Exam General: In no apparent distress, Cooperative, Confused HEENT: Atraumatic, PERRLA, EOMI Neck: Supple, JVD not distended Respiratory: Clear to auscultation bilaterally, Normal air movement Cardiovascular: Regular rate/rhythm, Normal S1 S2 Gastrointestinal: Normal bowel sounds, No tenderness Musculoskeletal: No tenderness Integumentary: No rashes Neurological: Normal speech, Normal tone, Normal affect Lymphatics: No axilla or inguinal lymphadenopathy - Studies Medications List Reviewed: Yes Assessment And Plan - Current Problems (Diagnosis) (1) Pulmonary embolism Current Visit: Yes Status: Acute Plan: CHANGED TO ELIQUIS I [facility] FOR HER FAMILY WILL TALK TO ELECTRICAL & INSTRUMENTATION SUPERVISOR. THIS IS UNPROVOKED PE. WITH CONTINUED BED BOUND STATUS , SHE WILL BE ON LOW DOSE AC AFTER 3 MONTHS. STOP EVISTA. I EXPLAINED EVISTA DOSES TO DAUGHTER AT BEDSIDE. 10 MG BID FOR A WEEK FOLLOWED BY 5 MG BID FOR 3 MONTHS AND THEN 2.5 MG PO BID FOR LIFE TIME. (2) Dementia Current Visit: No Status: Chronic Plan: SEVERE UNCHANGED. SHE DID NOT HAVE BENEFIT OF MEDS. WHEN JOSUE WAS ALIVE HE HAD DECIDED NOT TO CONTINUE MEDS. 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
[2021-08-24] MEDS: D5W 1,000 ML IV SCH ×2 (01:55→19:48)
[2021-08-24] MEDS: LEVOTHYROXINE SOD 0.088 MG TAB PO SCH (05:22)
--- NOTE | 2021-08-24 08:37 | P.PN ---
Subjective Date of Service: 08/24/21 Chief Complaint: Hypoxemia Subjective: Improving THIS IS DAY TWO NOTE FOR THE PATIENT. SHE IS STABLE, TOLERATE MEDS AND NO COMPLICATIONS YET STILL HYPOXIC. SHE IS STABLE. SHE COULD NOT GO HOME SHE IS STILL HYPOXIC Review of Systems 10-point ROS is otherwise unremarkable General: Weakness Physical Examination - Vital Signs Temperature: 97.3 F Blood Pressure: 135/62 Pulse: 82 Respirations: 19 Pulse Ox (%): 95 - Physical Exam General: In no apparent distress, Cooperative, Confused HEENT: Atraumatic, PERRLA, EOMI Neck: Supple, JVD not distended Respiratory: Clear to auscultation bilaterally, Normal air movement Cardiovascular: Regular rate/rhythm, Normal S1 S2 Gastrointestinal: Normal bowel sounds, No tenderness Musculoskeletal: No tenderness Integumentary: No rashes Neurological: Normal speech, Normal tone, Normal affect Lymphatics: No axilla or inguinal lymphadenopathy - Studies Medications List Reviewed: Yes Assessment And Plan - Current Problems (Diagnosis) (1) Pulmonary embolism Current Visit: Yes Status: Acute Plan: CHANGED TO ELIQUIS I [facility] FOR HER FAMILY WILL TALK TO COMPUTER PERIPHERAL EQUIPMENT OPERATOR. THIS IS UNPROVOKED PE. WITH CONTINUED BED BOUND STATUS , SHE WILL BE ON LOW DOSE AC AFTER 3 MONTHS. STOP EVISTA. I EXPLAINED EVISTA DOSES TO DAUGHTER AT BEDSIDE. 10 MG BID FOR A WEEK FOLLOWED BY 5 MG BID FOR 3 MONTHS AND THEN 2.5 MG PO BID FOR LIFE TIME. CONTINUE ELIQUIS DC WHEN OXYGENATION IS 90%. MEDICARE WILL NOT PAY FOR OXYGEN FOR THIS DIAGNOSIS PT START TODAY (2) Dementia Current Visit: No Status: Chronic Plan: SEVERE UNCHANGED. SHE DID NOT HAVE BENEFIT OF MEDS. WHEN JOSUE WAS ALIVE HE HAD DECIDED NOT TO CONTINUE MEDS. 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
[2021-08-24] MEDS: HOME MED 1 EA UNK (Mirabegron [Myrbetriq] 50 MG Tab.Er.24h) PO SCH (09:00)
[2021-08-24] MEDS: APIXABAN 5 MG TABLET PO SCH ×2 (09:26→19:48)
[2021-08-24] MEDS: QUETIAPINE 25 MG TAB PO SCH (09:26)
[2021-08-24] MEDS: METOPROLOL XL 25 MG TAB PO SCH (09:30)
[2021-08-25] MEDS: LEVOTHYROXINE SOD 0.088 MG TAB PO SCH (05:35)
[2021-08-25] MEDS: HOME MED 1 EA UNK (Mirabegron [Myrbetriq] 50 MG Tab.Er.24h) PO SCH (09:00)
[2021-08-25] MEDS: APIXABAN 5 MG TABLET PO SCH ×2 (09:23→21:33)
[2021-08-25] MEDS: METOPROLOL XL 25 MG TAB PO SCH (09:23)
[2021-08-25] MEDS ORDERED: FUROSEMIDE 20 MG/ 2ML VIAL IV ONE (13:26)
[2021-08-25] MEDS ORDERED: QUETIAPINE 25 MG TAB PO SCH (21:00)
[2021-08-26] MEDS: LEVOTHYROXINE SOD 0.088 MG TAB PO SCH (05:28)
[2021-08-26 05:40] VITALS: O2SAT 93
[2021-08-26 07:28] LABS: Absolute Lymphocytes (CBC) 1.2 K/uL (0.7-4.9); Basophils % 0.4 % (0-1.3); Hematocrit 41.2 % (36.0-45.0); Lymphocytes % 23.1 % (15.3-44.8); MPV 8.7 fL (7.6-11.3); RBC Red Blood Cell Count 4.02 M/uL (3.86-4.86)
[2021-08-26 07:38] LABS: BUN Blood Urea Nitrogen 15 mg/dL (7-18); Bicarbonate 28 mmol/L (21-32); Glucose Level 119 mg/dL (74-106); Potassium 3.9 mmol/L (3.5-5.1); Sodium Level 145 mmol/L (136-145)
[2021-08-26 08:28] VITALS: BP 139/65; TEMP 97.5
[2021-08-26] MEDS: HOME MED 1 EA UNK (Mirabegron [Myrbetriq] 50 MG Tab.Er.24h) PO SCH (09:00)
--- NOTE | 2021-08-26 09:44 | RAD REPORT ---
EXAM DESCRIPTION: RAD - Chest Single View - 08/26/2021 6:42 am CLINICAL HISTORY: DYSPNEA Chest pain. COMPARISON: Chest Single View dated 08/22/2021; Chest Single View dated 08/21/2021; Chest Single Vie w dated 07/04/2021; Chest Single View dated 10/26/2020; Chest For Pe Angio dated 08/21/2021 FINDINGS: Portable technique limits examination quality. Interstitial lung markings are mildly prominent. The heart is moderately enlarged in size. Large hiat al hernia. IMPRESSION: Mild interstitial pulmonary edema suspected.
[2021-08-26] MEDS: APIXABAN 5 MG TABLET PO SCH (10:15)
[2021-08-26] MEDS: METOPROLOL XL 25 MG TAB PO SCH (10:15)
--- NOTE | 2021-08-31 14:27 | P.DS ---
Admission Date: 08/21/21 Discharge Date: 08/31/21 Disposition: ROUTINE DISCHARGE Discharge Condition: FAIR Reason for Admission: Hypoxemia - Problems (1) Pulmonary embolism Status: Acute (2) Dementia Status: Chronic (3) Global aphasia Status: Chronic Brief History of Present Illness: PATIENT WHO HAS SEVERE DEMENTIA AND IS NON VERBAL FOR LONG DURATION WHO LIVES AT [facility] COMES WITH DYSPNEA AND HYPOXIA. SHE HAS PE ON CT SCAN. SHE IS NOW ON ELIQUIS BID. SHE WAS GIVEN LOVENOX BY ER DOCTOR. SHE IS NON AMBULATORY MOST OF THE TIME. Hospital Course: MS MERARI IS SEVERELY DEMENTED LADY WITH LOSS OF SPEECH AND ANY COGNITIVE FUNCTION COMES WITH DYSPNEA AND WAS FOUND TO HAVE PE. SHE WILL BE ON LIFETIME ELIQUIS INITIALLY REGULAR DOSE AND AFTER 3 MONTHS 2.5 MG PO BID. Vital Signs/Physical Exam: Temp Pulse Resp BP Pulse Ox 97.5 F 90 16 139/65 91 08/26/21 08:00 08/26/21 08:00 08/26/21 08:00 08/26/21 10:15 08/26/21 08:00 Laboratory Data at Discharge: WBC 5.20 K/uL (4.3-10.9) D 08/26/21 06:52 Hgb 13.8 g/dL (12.0-15.0) 08/26/21 06:52 Hct 41.2 % (36.0-45.0) 08/26/21 06:52 Plt Count 271 K/uL (152-406) 08/26/21 06:52 PT 12.4 SECONDS (9.5-12.5) 08/21/21 14:55 INR 1.08 08/21/21 14:55 Sodium 145 mmol/L (136-145) 08/26/21 06:52 Potassium 3.9 mmol/L (3.5-5.1) 08/26/21 06:52 BUN 15 mg/dL (7-18) 08/26/21 06:52 Creatinine 0.60 mg/dL (0.55-1.3) 08/26/21 06:52 Glucose 119 mg/dL (74-106) H 08/26/21 06:52 Magnesium 2.1 mg/dL (1.8-2.4) 08/21/21 14:55 Total Bilirubin 0.5 mg/dL (0.2-1.0) 08/21/21 14:55 AST 22 U/L (15-37) 08/21/21 14:55 ALT 27 U/L (12-78) 08/21/21 14:55 Alkaline Phosphatase 34 U/L (45-117) L 08/21/21 14:55 Troponin I Cancelled 08/21/21 14:00 Home Medications: Clotrim/Betameth Cream [Lotrisone Cream*] 1 jordan TOP Q12HR PRN 08/22/21 Estrogens,Conj [Premarin*] 0.5 appl VAG MO,FR 08/22/21 Levothyroxine Sodium [Levothyroxine] 1 tab PO [id number] 08/22/21 Metoprolol Succinate 1 tab PO DAILY 08/22/21 Mirabegron [Myrbetriq] 1 tab PO DAILY 08/22/21 Nystatin [Nystop] 100,000 pwd Q12HP PRN 08/22/21 Quetiapine Fumarate [Seroquel] 1 tab PO DAILY 08/22/21 Apixaban [Eliquis] 5 mg PO BID #60 tablet 08/23/21 New Medications: Apixaban [Eliquis] 5 mg PO BID #60 tablet Followup: Alfie Herrera MD [Primary Care Provider] -
== END 2021-08-26 10:58 | disposition home or self-care (01) | DRG 176 ==
LOC: ER 13:39 → ERHOLD 18:39 → 2ND 19:28
PROVIDERS: ADMIT Internal Medicine; ATTEND Internal Medicine
DX: I26.99 Other pulmonary embolism without acute cor pulmonale (principal); R47.01 Aphasia; E87.1 Hypo-osmolality and hyponatremia; I82.439 Acute embolism and thrombosis of unspecified popliteal vein; I82.449 Acute embolism and thrombosis of unspecified tibial vein; F03.90 Unspecified dementia, unspecified severity, without behavioral disturbance, psychotic disturbance, mood disturbance, and anxiety; E03.9 Hypothyroidism, unspecified; R09.02 Hypoxemia; E66.9 Obesity, unspecified; Z68.32 Body mass index [BMI] 32.0-32.9, adult; Z96.653 Presence of artificial knee joint, bilateral; Z74.01 Bed confinement status; Z85.3 Personal history of malignant neoplasm of breast; Z20.822 Contact with and (suspected) exposure to COVID-19
CPT/HCPCS: 36415; 71045; 71275; 80048; 80076; 82805; 83605; 83735; 83880; 84145; 84484; 85025; 85610; 87040; 93005; 93970; 94760; 96372; 96374; 97116; 97161; 97530; 99285; J0696; J1650; J1940; Q9967; U0003

== ENCOUNTER 2021-09-04 20:49 | Emergency (ER) | payer OTHER ==
[2021-09-04 22:42] LABS: Absolute Lymphocytes (CBC) 1.4 K/uL (0.7-4.9); Basophils % 0.8 % (0-1.3); Hematocrit 40.7 % (36.0-45.0); Lymphocytes % 19.5 % (15.3-44.8); MPV 8.7 fL (7.6-11.3); RBC Red Blood Cell Count 3.98 M/uL (3.86-4.86)
[2021-09-04 22:45] LABS: Protime INR 1.55
[2021-09-04 22:54] LABS: Arterial Blood Carboxyhemoglob 1.1 % (0-1.5); Blood O2 Saturation 92.9 % (92-98.5)
[2021-09-04 22:56] LABS: ALT/SGPT 24 U/L (12-78); AST/SGOT 17 U/L (15-37); Albumin 3.2 g/dL (3.4-5.0); Alkaline Phosphatase 37 U/L (45-117); BUN Blood Urea Nitrogen 20 mg/dL (7-18); Bicarbonate 25 mmol/L (21-32); Bilirubin Direct 0.1 mg/dL (0-0.2); Bilirubin Total 0.6 mg/dL (0.2-1.0); Glucose Level 111 mg/dL (74-106); Magnesium 2.2 mg/dL (1.8-2.4); NT PRO-BNP 218 pg/mL (<450); Potassium 3.3 mmol/L (3.5-5.1); Protein, Total 7.1 g/dL (6.4-8.2); Sodium Level 144 mmol/L (136-145); Troponin (Emerg Dept Use Only) < 0.02 ng/mL (0.0-0.045)
--- NOTE | 2021-09-05 02:12 | ER ---
Nurse's Notes [facility] Name: Nilda Daigle Age: 80 yrs Sex: Female : 1940 Arrival Date: 09/04/2021 Time: 21:00 Bed 15 Private MD: Diagnosis: Dyspnea. S/P Pulmonary emboli Presentation: 09/04 21:13 Chief complaint: Patient states: pt resident of [facility] was contacted due to mr2 pt sounding congested and possible breathing . difficulty. pt was recently treated for pe last week here at [facility]. 21:13 Coronavirus screen: Vaccine status: Patient reports receiving the 2nd dose of the covid mr2 vaccine. Ebola Screen: Patient negative for fever greater than or equal to 101.5 degrees Fahrenheit, and additional compatible Ebola Virus Disease symptoms Patient denies exposure to infectious person. Patient denies travel to an Ebola-affected area in the 21 days before illness onset. Initial Sepsis Screen: Does the patient meet any 2 criteria? RR > 20 per min. No. Patient's initial sepsis screen is negative. Does the patient have a suspected source of infection? Yes: Productive cough/pneumonia. Risk Assessment: Do you want to hurt yourself or someone else? Patient reports no desire to harm self or others. 21:13 Method Of Arrival: EMS: [facility] mr2 21:13 Acuity: TATIANA 3 mr2 21:13 Onset of symptoms was September 04, 2021. mr2 Triage Assessment: 21:21 General: Appears uncomfortable, Behavior is calm, cooperative. Pain: Denies pain. mr2 Historical: - Immunization history:: Adult Immunizations up to date, Client reports receiving the 2nd dose of the Covid vaccine, Last tetanus immunization: Pneumococcal vaccine status is unknown, Flu vaccine is up to date. - Social history:: Smoking status: Patient denies any tobacco usage or history of. Screenin:30 Abuse screen: Denies threats or abuse. Denies injuries from another. Nutritional dc2 screening: No deficits noted. Tuberculosis screening: No symptoms or risk factors identified. Never had TB. Fall Risk None identified. No fall in past 12 months (0 pts). Secondary diagnosis (15 points) No IV (0 pts). Ambulatory Aid- None/Bed Rest/Nurse Assist (0 pts). Gait- Impaired (20 pts.). Mental Status- Overestimates/Forgets Limitations (15 pts.). Total Portillo Fall Scale indicates High Risk Score (45 or more points). Assessment: 22:45 Reassessment: Pt with wet depends, cleaned and changed, pt tolerate well, appears to be dc2 comfortable. Occasional cough heard . Continue to monitor. Daughter remain at bedside. 22:50 Reassessment: Pt stuck 4x for IV. Kylee Charge Nurse at bedside with ultrasound for IV dc2 attempt and additional blood for Lactic and Blood cultures. 23:50 Reassessment: Ann with CT called to say that IV " busted " and pt did not receive dc2 any contrast for the PE study. Told to return to the ED to obtain IV site. 09/05 00:00 Reassessment: Kylee , charge nurses at bedside for IV attempt. dc2 01:45 Reassessment: Pt cleaned and changed, tolerate well. Daughter at side. Voices no needs dc2 at present, continue to monitor. Pt in nad. 02:40 Reassessment: Attempt to call report to [facility], speak to Octavio x2, states they are dc2 busy, was transferred to a voice box that was not accepting messages. Call Octavio back to make aware, informed that patient was enroute back to facility. Placed on hold for 10 minutes then I disconnected due to I had a new ER patient arrive in my rooms. Vital Signs: 09/04 21:13 BP 113 / 71; Pulse 103; Resp 22; Temp 98.3; Pulse Ox 96% on R/A; Weight 73.48 kg; mr2 Height 5 ft. 0 in. (152.40 cm); 23:00 BP 127 / 81; Pulse 94; Resp 20; Pulse Ox 94% ; Pain 0/10; dc2 09/05 00:00 BP 124 / 72; Pulse 84; Resp 17; Pulse Ox 95% on R/A; Pain 0/10; dc2 01:00 BP 139 / 80; Pulse 83; Resp 20; Temp 97.5; Pulse Ox 99% 2 lpm ; Pain 0/10; dc2 02:05 BP 122 / 78; Pulse 77; Resp 17; Pulse Ox 94% on R/A; Pain 0/10; dc2 09/04 21:13 Body Mass Index 31.64 (73.48 kg, 152.40 cm) mr2 11 23:00 Pt is nonverbsl, no facial grimacing noted. Appears to be comfortable, occasional cough dc2 can be heard ED Course: 21:00 Patient arrived in ED. ld1 21:10 Demond Myles MD is Attending Physician. pkl 21:21 Triage completed. mr2 21:21 Arm band placed on. mr2 21:30 Patient has correct armband on for positive identification. Allergy band placed. Bed in dc2 low position. Call light in reach. Side rails up X2. Adult w/ patient. quality assurance monitor on. Pulse ox on. NIBP on. Door closed. Lights dimmed. 22:01 Stephanie Valladares, RN is Primary Nurse. dc2 22:05 No provider procedures requiring assistance completed. dc2 22:15 ED physician to see patient. dc2 22:19 CBC with Diff Sent. dc2 22:19 LFT's Sent. dc2 22:19 Magnesium Sent. dc2 22:19 NT PRO-BNP Sent. dc2 22:19 PT-INR Sent. dc2 22:19 Troponin (emerg Dept Use Only) Sent. dc2 22:20 Basic Metabolic Panel Sent. dc2 22:25 X-ray(s) taken. dc2 22:28 XRAY Chest (1 view) In Process Unspecified. EDMS 23:05 First set of blood cultures drawn lactate drawn and sent to lab. Inserted saline lock: bb 20 gauge in left antecubital area, using aseptic technique. Blood collected. 23:[address] dc2 1104 00:10 IV discontinued, intact, bleeding controlled, No redness/swelling at site. Pressure bb dressing applied, pt IV infiltrated during CT scan. Accessed peripheral vein via ultrasound, utilizing dynamic ultrasound technique Flushes easily. powerglide 18 g 10 cm Left upper arm with aseptic technique . 00:[address] dc2 00:48 Patient moved back from CT. dc2 01:02 CT Chest For PE Angio Sent. dc2 01:10 CT Chest For PE Angio In Process Unspecified. EDMS 02:00 ED physician to see patient. dc2 Administered Medications: 02:29 CANCELLED (Physician Discretion): NS 0.9% 1000 ml IV at 75 ml/hr continuous bb Outcome: 02:11 Discharge ordered by . pkl 02:20 Discharged to home via wheelchair, with family. dc2 02:20 Condition: stable 02:20 Discharge instructions given to patient, family, Instructed on discharge instructions, follow up and referral plans. Demonstrated understanding of instructions. 02:43 Patient left the ED. dc2 Signatures: Dispatcher [employer] Demond Barrera MD MD pkl Ballard, Brenda, RN RN bb Paula Padilla RN RN ld1 Alessandro Vences RN RN mr2 Stephanie Valladares RN RN dc2 Corrections: (The following items were deleted from the chart) 09/04 21:24 21:21 PMHx: Dementia; mr2 mr2 :24 21:21 PMHx: Hypothyroidism; mr2 mr2 :24 21:21 PMHx: Ulcers; mr2 mr2 :24 21:21 PMHx: breast cancer; mr2 mr2 :24 21:21 PMHx: Arthritis; mr2 mr2 21:24 21:21 PMHx: LYMPH EDEMA; mr2 mr2 09/05 02:07 01:56 NS 0.9% 1000 ml IV at 75 ml/hr in left upper arm via Primary tubing dc2 dc2
--- NOTE | 2021-09-05 02:12 | EDPHYS ---
Physician Documentation [facility] Name: Nilda Daigle Age: 80 yrs Sex: Female : 1940 Arrival Date: 09/04/2021 Time: 21:00 Bed 15 Private MD: ED Physician Demond Myles HPI: 09/05 02:02 This 80 yrs old Female presents to ER via EMS with unknown complaint. pkl 02:02 The patient has shortness of breath at rest. Onset: The symptoms/episode began/occurred pkl today. Associated signs and symptoms: The patient has no apparent associated signs or symptoms. Patient admit 1 week ago for pulmonary emboli. Now taking Eliquis. Historical: - Immunization history:: Adult Immunizations up to date, Client reports receiving the 2nd dose of the Covid vaccine, Last tetanus immunization: Pneumococcal vaccine status is unknown, Flu vaccine is up to date. - Social history:: Smoking status: Patient denies any tobacco usage or history of. ROS: 02:02 Eyes: Negative for injury, pain, redness, and discharge, ENT: Negative for injury, pkl pain, and discharge, Neck: Negative for injury, pain, and swelling, Cardiovascular: Negative for chest pain, palpitations, and edema. 02:02 Respiratory: Positive for shortness of breath. 02:02 Abdomen/GI: Negative for abdominal pain, nausea, vomiting, and diarrhea. 02:02 Back: Negative for acute changes. 02:02 : Negative for urinary symptoms. 02:02 MS/extremity: Negative for acute changes. 02:02 Skin: Negative for rash. 02:02 Neuro: Negative for altered mental status, loss of consciousness. Exam: 02:02 Head/Face: Normocephalic, atraumatic. Eyes: Pupils equal round and reactive to light, pkl extra-ocular motions intact. Lids and lashes normal. Conjunctiva and sclera are non-icteric and not injected. Cornea within normal limits. Periorbital areas with no swelling, redness, or edema. ENT: Nares patent. No nasal discharge, no septal abnormalities noted. Tympanic membranes are normal and external auditory canals are clear. Oropharynx with no redness, swelling, or masses, exudates, or evidence of obstruction, uvula midline. Mucous membranes moist. Neck: Trachea midline, no thyromegaly or masses palpated, and no cervical lymphadenopathy. Supple, full range of motion without nuchal rigidity, or vertebral point tenderness. No Meningismus. Chest/axilla: Normal chest wall appearance and motion. Nontender with no deformity. No lesions are appreciated. Cardiovascular: Regular rate and rhythm with a normal S1 and S2. No gallops, murmurs, or rubs. Normal PMI, no JVD. No pulse deficits. Respiratory: Lungs have equal breath sounds bilaterally, clear to auscultation and percussion. No rales, rhonchi or wheezes noted. No increased work of breathing, no retractions or nasal flaring. Abdomen/GI: Soft, non-tender, with normal bowel sounds. No distension or tympany. No guarding or rebound. No evidence of tenderness throughout. Back: No spinal tenderness. No costovertebral tenderness. Full range of motion. Skin: Warm, dry with normal turgor. Normal color with no rashes, no lesions, and no evidence of cellulitis. MS/ Extremity: Pulses equal, no cyanosis. Neurovascular intact. Full, normal range of motion. Neuro: Awake and alert, GCS 15, oriented to person, place, time, and situation. Cranial nerves II-XII grossly intact. Motor strength 5/5 in all extremities. Sensory grossly intact. Cerebellar exam normal. Normal gait. Vital Signs: 09/04 21:13 BP 113 / 71; Pulse 103; Resp 22; Temp 98.3; Pulse Ox 96% on R/A; Weight 73.48 kg; mr2 Height 5 ft. 0 in. (152.40 cm); 23:00 BP 127 / 81; Pulse 94; Resp 20; Pulse Ox 94% ; Pain 0/10; dc2 09/05 00:00 BP 124 / 72; Pulse 84; Resp 17; Pulse Ox 95% on R/A; Pain 0/10; dc2 01:00 BP 139 / 80; Pulse 83; Resp 20; Temp 97.5; Pulse Ox 99% 2 lpm ; Pain 0/10; dc2 02:05 BP 122 / 78; Pulse 77; Resp 17; Pulse Ox 94% on R/A; Pain 0/10; dc2 09/04 21:13 Body Mass Index 31.64 (73.48 kg, 152.40 cm) [facility] 09/04 23:00 Pt is nonverbsl, no facial grimacing noted. Appears to be comfortable, occasional cough dc2 can be heard MDM: 21:11 Patient medically screened. [facility] 09/05 02:02 Data reviewed: vital signs, nurses notes, lab test result(s), EKG, radiologic studies, pkl CT scan, plain films. ED course: Patient not in any distress. Vital signs stable. Discussed lab, EKG and imaging studies with daughter. Advised to continue Eliquis. To return if necessary. daughter understood instructions. 09/04 22:15 Order name: Basic Metabolic Panel pk 09/04 22:15 Order name: CBC with Diff; Complete Time: 22:50 pkl 09/04 22:15 Order name: LFT's; Complete Time: 22:59 pkl 09/04 22:15 Order name: Magnesium; Complete Time: 22:59 pkl 09/04 22:15 Order name: NT PRO-BNP; Complete Time: 22:59 pkl 09/04 22:15 Order name: PT-INR; Complete Time: 22:50 pk 09/04 22:15 Order name: Troponin (emerg Dept Use Only); Complete Time: 22:59 pkl 09/04 22:16 Order name: Basic Metabolic Panel; Complete Time: 22:59 EDMS 09/04 22:16 Order name: ABG; Complete Time: 22:59 pkl 09/04 22:16 Order name: Lactate; Complete Time: 00:03 pkl 09/04 22:16 Order name: Procalcitonin; Complete Time: 00:03 pkl 09/04 22:16 Order name: Blood Culture Adult (2) pk 09/04 22:34 Order name: D-Dimer; Complete Time: 22:50 EDMS 09/04 22:15 Order name: XRAY Chest (1 view) pk 09/04 22:15 Order name: EKG; Complete Time: 22:16 pkl 09/04 22:15 Order name: Cardiac monitoring; Complete Time: 22:19 pk 09/04 22:15 Order name: EKG - Nurse/Tech; Complete Time: 22:19 pkl 09/04 22:15 Order name: IV Saline Lock [facility] 09/04 22:15 Order name: Labs collected and sent; Complete Time: 22:19 pk 09/04 22:15 Order name: O2 Per Protocol; Complete Time: 22:19 pkl 09/04 22:15 Order name: O2 Sat Monitoring; Complete Time: 22:19 pkl 09/04 22:17 Order name: CT Chest For PE Angio pkl 09/05 02:39 Order name: CREATININE WHOLE BLOOD; Complete Time: 02:54 EDMS Administered Medications: 02:29 CANCELLED (Physician Discretion): NS 0.9% 1000 ml IV at 75 ml/hr continuous bb Disposition Summary: 09/05/21 02:11 Discharge Ordered Location: Home pkl Problem: new pkl Symptoms: have improved pkl Condition: Stable pkl Diagnosis - Dyspnea. S/P Pulmonary emboli pkl Followup: pkl - With: Private Physician - When: 2 - 3 days - Reason: Re-evaluation by your physician Forms: - Medication Reconciliation Form pkl - Thank You Letter pkl - Antibiotic Education pkl - Prescription Opioid Use pkl Signatures: Dispatcher [employer] EDME Demond Myles MD MD pkl Alessandro Vences RN RN mr2 Stephanie Valladares RN RN akKylee Davis RN bb Corrections: (The following items were deleted from the chart) 09/04 21:24 21:21 PMHx: Dementia; mr2 mr2 21:24 21:21 PMHx: Hypothyroidism; mr2 mr2 21:24 21:21 PMHx: Ulcers; mr2 mr2 21:24 21:21 PMHx: breast cancer; mr2 mr2 21:24 21:21 PMHx: Arthritis; mr2 mr2 21:24 21:21 PMHx: LYMPH EDEMA; mr2 mr2 22:34 22:17 D-DIMER+COAG.LAB.BRZ ordered. EDMS EDMS 09/05 02:29 09/04 22:33 NS 0.9% 1000 ml IV at 75 ml/hr continuous ordered. pkl bb 09/05 02:29 01:56 NS 0.9% 1000 ml IV at 75 ml/hr continuous given. dc2 bb : 02:07 NS 0.9% 1000 ml IV at 75 ml/hr continuous ordered. dc2 bb
[2021-09-05 02:54] VITALS: TEMP 97.5
[2021-09-05 02:56] VITALS: BP 122/78; O2SAT 94
--- NOTE | 2021-09-05 07:53 | RAD REPORT ---
EXAM DESCRIPTION: Luis Single View09/04/2021 10:28 pm CLINICAL HISTORY: Cough COMPARISON: August 2021 FINDINGS: Large hiatal hernia. The lungs appear clear of acute infiltrate. The heart is normal size IMPRESSION: No acute abnormalities displayed
--- NOTE | 2021-09-05 12:24 | RAD REPORT ---
EXAM DESCRIPTION: CT - Chest For Pe Angio - 09/05/2021 6:54 am CLINICAL HISTORY: 80 years Female Cough; Dyspnea COMPARISON: 08/21/[address] chest 10/26/2020. TECHNIQUE: Attempted CT angiography of the chest was performed with multiplanar reformation and 3D a nd MIP reconstruction. This exam was performed according to our departmental dose-optimization progra m, which includes automated exposure control, adjustment of the mA and/or kV according to patient siz e and/or use of iterative reconstruction technique. Tech note: First IV infiltrated, Midline was placed. No swelling at site during injection but the con trast is not seen in images FINDINGS: Pulmonary arteries: Nondiagnostic evaluation due to lack of IV contrast. Aorta: Nondiagnostic evaluation due to lack of IV contrast. 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 Configuration of the stomach in which the greater curvature lies above the lesser curvature is unchanged since 2019. Heart: Heart is normal in size. No pericardial effusion. Lungs / airways: Minimal bibasilar compressive atelectasis. Airways are patent. Pleura: No significant pleural effusion. No pneumothorax. Osseous: Multilevel degenerative changes. Soft tissues: Unremarkable. Visualized upper abdomen: Calcified granulomas of the spleen. IMPRESSION: 1. Nondiagnostic evaluation for pulmonary embolism due to lack of IV contrast. 2. 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 Configuration of the stomach in which the greater curvature lies above the lesser curvature is unchanged since 2019. Electronically signed by: Timur Ding MD 09/05/2021 1:46 AM CDT Due to temporary technical issues with the PACS/Fluency reporting system, reports are being signed by the in house radiologists without review as a courtesy to insure prompt reporting. The interpreting radiologist is fully responsible for the content of the report.
== END 2021-09-05 02:43 | disposition home or self-care (01) ==
LOC: ER 20:49
DX: R06.00 Dyspnea, unspecified (principal); Z86.711 Personal history of pulmonary embolism; Z79.01 Long term (current) use of anticoagulants
CPT/HCPCS: 93005; 87040; 85025; 80048; 36415; 83735; 85610; 82565; 85379; 80076; 83605; 84484; 84145; 83880; 71275; 71045; 82805; 99285; Q9967

== ENCOUNTER 2021-12-12 15:31 | Emergency (ER) | payer OTHER ==
--- OUTSIDE RECORDS SUMMARY | 2021-12-12 15:34 | XMS REPORT | Continuity of Care Document ---
:1940 Author Organization [facility] t Address [address] [place] [address] Care Team Providers Name Role Phone Pcp, Does Not Have A Primary Care Physician Doctor Unassigned, Name Attending Clinician Unavailable Eulalio AVENDANO Attending Clinician Unavailable Eulalio Avendano MD Attending Clinician Eulalio AVENDANO Admitting Clinician Unavailable Payers Payer Name Policy Type Policy Number Effective Date Expiration Date S ource Problems Condition Condition Condition Status Onset Resolution Last Treating Co mments Source Name Details Category Date Date Treatment Clinician Date No known No known Disease Unive rs active active ity of problems problems [facility] Allergies, Adverse Reactions, Alerts Allergy Allergy Status Severity Reaction(s) Onset Inactive Treating Comm ents Source Name Type Date Date Clinician Duloxeti Propensi Active Unknown - 2020-11 Uni vers ne ty to See comments 2-18 ity of adverse 00:00: [place] reaction 00 [facility] CIPROFLO DRUG Active Unknown-Cmnt 2020-11 Un joya XACIN INGREDI 2-18 ity of 00:00: [place] 00 [facility] DULOXETI DRUG Active Unknown-Cmnt 2020-11 Un joya NE INGREDI 2-18 ity of 00:00: [place] 00 [facility] Ciproflo Propensi Active Unknown - 2020-11 Uni vers xacin ty to See comments 2-18 ity of adverse 00:00: [place] reaction 00 Medical s [place] Social History Social Habit Start Date Stop Date Quantity Comments Source Exposure to Not sure [facility] SARS-CoV-2 (event) Medica l Branch Sex Assigned At [birth year] [facility] 00:00:00 00:00:00 [facility] Smoking Status Start Date Stop Date Source Unknown if ever smoked [facility] Medications Ordered Filled Start Stop Current Ordering Indication Dosage Frequency Signature Comments Components Source Medication Medication Date Date Medication? Clinician (SIG) Name Name ondansetron 2020-11 Yes [id number] 4mg Take 1 Univers (ZOFRAN) 4 2-18 tablet by ity of mg tablet 00:00: mouth [place] 00 every 8 Medical (eight) Branch hours as needed for Nausea and Vomiting (N/V). ondansetron 2020-11 Yes [id number] 4mg Take 1 Univers (ZOFRAN) 4 2-18 tablet by ity of mg tablet 00:00: mouth [place] 00 every 8 Medical (eight) Branch hours as needed for Nausea and Vomiting (N/V). Vital Signs Vital Name Observation Time Observation Value Comments Source Heart rate 2021-10-20 00:00:00 90 /min [facility] Oxygen saturation in 2021-10-20 00:00:00 93 /min [facility] Arterial blood by [facility] Pulse oximetry [place] Systolic blood 2021-10-19 22:00:00 131 mm[Hg[facility] [place] [facility] 2021-10-19 22:00:00 79 mm[Hg] [facility] Respiratory rate 2021-10-19 22:00:00 19 /min [facility] Body temperature 2021-10-19 19:12:23 36.67 Renetta [facility] Body weight 2021-10-19 18:57:00 79.379 kg [facility] Procedures Procedure Date / Time Performing Clinician Source Performed EXTERNAL PROVIDER 2021-11-05 06:01:00 Doctor Unassigned, No [facility] RECORDS Name [facility] XR ABDOMEN 1 VW 2021-10-19 22:47:17 Jesse Avendano [facility] PROTHROMBIN TIME / INR 2021-10-19 22:37:00 Jesse Avendano [facility] URINALYSIS 2021-10-19 22:37:00 Jesse Avendano [facility] COMP. METABOLIC PANEL 2021-10-19 21:30:00 Jesse Avendano [facility] ([id number]) [facility] CBC WITH DIFF 2021-10-19 21:30:00 Jesse Avendano [facility] CONSENT/REFUSAL FOR 2021-10-19 19:03:46 [facility]igned, [facility] Name [facility] NOTICE OF PRIVACY 2021-10-19 19:03:30 Doctor Unassigned, No Univ [facility] PRACTICES Name [facility] Branch Encounters Start End Encounter Admission Attending Care Care Encounter Source Date/Time Date/Time Type Type Clinicians Facility Department ID 2021-11-05 2021-11-05 Orders Doctor SHRUTHI [id number] [facility] 00:00:00 00:00:00 Only Unassigned, AMINA [id number] ity of [place] [facility] [id number] [facility] [place] [id number] [facility] 009 Branch 2021-10-19 2021-10-19 Emergency [facility] [id number] [facility] 12:54:00 18:27:00 [facility] 2021-10-19 2021-10-19 Emergency [facility] [id number] Univers 12:54:00 18:27:00 Jesse YU [id number] ity [facility] [id number] [facility] [id number] [facility] 084 [place] Results Test Description Test Time Test Comments Results Result Comments Source PROTHROMBIN TIME / INR 2021-10-19 23:28:20 Test Item Value Reference Range Interpretation Comme nts PROTIME PATIENT (test code = See_Comment [Automated message] The system 5964-2) which generated this result transmitted ref erence range: 12.0 - 14.7 Seconds. The reference range was not u sed to interpret this result as normal/abnormal. INR (test code = 6301-6) Nor mal INR <1.1; Warfarin Therapeutic ran ge 2.0 to 3.0 or 2.5 to 3.5, dep ending upon the indications. Lab Interpretation (test code = Normal 50876-1) [facility][id number][facility]-19 21:56:32 Test Item Value Reference Range Interpretation Comments NA (test code = 141 mmol/L 135-145 1172836359) K (test code = 4.7 mmol/L 3.5-5.0 7823073464) CL (test code = 107 mmol/L 98-108 9606638422) CO2 TOTAL (test code = 26 mmol/L 23-31 8640663992) AGAP (test code = 2-16 6245193431) BUN (test code = 17 mg/dL 7-23 2990979812) GLUCOSE (test code = 87 mg/dL 70-110 6135100371) CREATININE (test code = 0.68 mg/dL 0.50-1.04 6935683459) TOTAL BILI (test code = 0.6 mg/dL 0.1-1.9 0848652801) CALCIUM (test code = 9.8 mg/dL 8.6-10.6 4727222336) T PROTEIN (test code = 7.3 g/dL 6.3-8.2 4056803764) ALBUMIN (test code = 4.2 g/dL 3.5-5.0 5773370667) ALK PHOS (test code = 30 U/L 34-122 L 3508196599) ALTv (test code = 19 U/L 5-35 1742-6) AST(SGOT) (test code = 27 U/L 13-40 2878478890) eGFR (test code = mL/min/1.73m2 4120281603) BENTLEY (test code = BENTLEY) Association of Glomerular Filtration Rate (GFR) and Staging of Kidney Disease* + --+ --+ ------+| GFR (mL/min/1.73 m2) ?| With Kidney Damage ?| ?Without Kidney Damage+ --------+ --------+ +| ?>90 ?| ?Stage one ?| ? Normal ?+ ---+ ---+ -------+| ?60-89 ?| ?Stage two ?| ? Decreased GFR ? + --+ --+ ------+| ?30-59 ?| ?Stage three ?| ? Stage three ? + --+ --+ ------+| ?15-29 ?| ?Stage four ? | ? Stage four ?+ ---+ ---+ -------+| ?<15 (or dialysis) ? ?| ?Stage five ? | ? Stage five ?+ ---+ ---+ -------+ *Each stage assumes the associated GFR level has been in effect for at least three months. ?Stages 1 to 5, with or without kidney disease, indicate chronic kidney disease. Notes: Determination of stages one and two (with eGFR >59mL/min/1.73 m2) requires estimation of kidney damage for at least three months as defined by structural or functional abnormalities of the kidney, manifested by either:Pathological abnormalities or Markers of kidney damage (including abnormalities in the composition of the blood or urine or abnormalities in imaging tests). Lab Interpretation Abnormal (test code = 00039-2) [facility] WITH [id number] 21:42:11 Test Item Value Reference Range Interpretation Comments WBC (test code = See_Comment [Automated 7990-2) message] The sy stem which generated this result transmitted reference range : 4.30 - 11.10 10*3/?L. The reference range was not used to interpret this result as normal/abnormal . RBC (test code = See_Comment [Automated 789-8) message] The sy stem which generated this result transmitted reference range : 3.93 - 5.25 10*6/?L. The reference range was not used to interpret this result as normal/abnormal . HGB (test code = 13.5 g/dL 11.6-15.0 718-7) HCT (test code = 40.9 % 35.7-45.2 4544-3) MCV (test code = 103.5 fL 80.6-95.5 H 787-2) MCH (test code = 34.2 pg 25.9-32.8 H 785-6) MCHC (test code = 33.0 g/dL 31.6-35.1 786-4) RDW-SD (test code = 51.3 fL 39.0-49.9 H 07581-9) RDW-CV (test code = 13.5 % 12.0-15.5 788-0) PLT (test code = See_Comment [Automated 037-3) message] The sy stem which generated this result transmitted reference range : 166 - 358 10*3/ ?L. The reference r lashonda was not used to interpret this result as normal/abnormal . MPV (test code = 10.1 fL 9.5-12.9 17088-5) NRBC/100 WBC (test See_Comment [Automat ed code = [id number]) message] The system which generated this result transmitted reference range : 0.0 - 10.0 /100 WBCs. The refer ence range was not u sed to interpret th is result as normal/abnormal . NRBC x10^3 (test code <0.01 See_Comment [Auto mated = [id number]) message] The s ystem which generated this result transmitted reference range : 10*3/?L. The reference range was not used to interpret this result as normal/abnormal . GRAN MAT (NEUT) % 64.1 % (test code = 770-8) IMM GRAN % (test code 0.30 % = 4544849753) LYMPH % (test code = 26.6 % 736-9) MONO % (test code = 7.0 % 5905-5) EOS % (test code = 0.8 % 713-8) BASO % (test code = 1.2 % 706-2) GRAN MAT x10^3(ANC) 4.65 10*3/uL 1.88-7.09 (test code = 0613814158) IMM GRAN x10^3 (test <0.03 0.00-0.06 code = 4168712153) LYMPH x10^3 (test code 1.93 10*3/uL 1.32-3.29 = 731-0) MONO x10^3 (test code 0.51 10*3/uL 0.33-0.92 = 742-7) EOS x10^3 (test code = 0.06 10*3/uL 0.03-0.39 711-2) BASO x10^3 (test code 0.09 10*3/uL 0.01-0.07 H = 704-7) Lab Interpretation Abnormal (test code = 60234-1) [facility]"
--- NOTE | 2021-12-12 16:03 | RAD REPORT ---
EXAM DESCRIPTION: CT - CTHCSPWOC - 12/12/2021 3:44 pm CLINICAL HISTORY: Trauma, head and neck injury. fall, head injury COMPARISON: No comparisons TECHNIQUE: Axial 5 mm thick images of the head were obtained. Axial 2 mm thick images of the cervical spine were obtained with sagittal and coronal reconstruction images generated and reviewed. All CT scans are performed using dose optimization technique as appropriate and may include automated exposure control or mA/KV adjustment according to patient size. FINDINGS: CT HEAD WITHOUT CONTRAST: No acute hemorrhage, hydrocephalus or extra-axial collection is identified.No areas of brain edema or midline shift. Moderate chronic small vessel ischemic changes. Cerebral atrophy. The paranasal sinuses and mastoids are clear.The calvarium is intact. CT CERVICAL SPINE WITHOUT CONTRAST: No fracture or subluxation.No prevertebral soft tissues swelling is identified. Multilevel cervical s pondylosis with varying degrees of neural foraminal narrowing. Anterolisthesis of C2 on C3, C3 on C4 and C4 on C5 this likely related to underlying degenerative changes. IMPRESSION: No acute intracranial or cervical spine findings.
--- NOTE | 2021-12-12 16:13 | ER ---
Nurse's Notes [facility] Name: Nilda Daigle Age: 81 yrs Sex: Female : 1940 Arrival Date: 12/12/2021 Time: 15:35 Bed 19 Private MD: Diagnosis: Unspecified injury of head, initial encounter Presentation: 12/12 15:35 Chief complaint: EMS states: they were called to [facility] for report of a patient that ap3 fell. It is reported that the fall was unwitnessed, as the patient was found on the floor during rounding. Coronavirus screen: At this time, the client does not indicate any symptoms associated with coronavirus-19. Ebola Screen: No symptoms or risks identified at this time. Initial Sepsis Screen: Does the patient meet any 2 criteria? No. Patient's initial sepsis screen is negative. Does the patient have a suspected source of infection? No. Patient's initial sepsis screen is negative. Risk Assessment: Do you want to hurt yourself or someone else? Patient reports no desire to harm self or others. Onset of symptoms was December 12, 2021 at 15:00. 15:35 Method Of Arrival: EMS: [facility] ap3 15:35 Acuity: TATIANA 4 ap3 Triage Assessment: 15:41 General: Appears in no apparent distress. Behavior is calm. Pain: Unable to use pain ap3 scale. pt is aphasic. Respiratory: Airway is patent Respiratory effort is even, unlabored, Respiratory pattern is regular, symmetrical. Derm: Wound noted right holiness. Injury Description: unwitnessed fall. Historical: - Allergies: 15:40 Ciprofloxacin; ap3 15:40 Cymbalta; ap3 - Immunization history:: Client reports receiving the 2nd dose of the Covid vaccine. - Social history:: Smoking status: unknown. Screenin:42 Abuse screen: Denies threats or abuse. Nutritional screening: No deficits noted. ap3 Tuberculosis screening: No symptoms or risk factors identified. Fall Risk Fall in past 12 months (25 points). Secondary diagnosis (15 points) impaired mobility, No IV (0 pts). Ambulatory Aid- None/Bed Rest/Nurse Assist (0 pts). Gait- Weak (10 pts.). Total Portillo Fall Scale indicates High Risk Score (45 or more points). Fall prevention measures have been instituted. Side Rails Up X 2 Placed Close to Nursing Station Frequent Obs/Assessments Occuring As available patient and family educated on Fall Prevention Program and Strategies. Assessment: 16:06 General: Appears in no apparent distress. comfortable, Behavior is calm, cooperative. ab2 Pain: Denies pain. Neuro: Level of Consciousness is awake, alert, obeys commands, Oriented to Pt nonverbal-unable to assess . Cardiovascular: No deficits noted. Heart tones S1 S2 present Patient's skin is warm and dry. Respiratory: Airway is patent Respiratory effort is even, unlabored, Respiratory pattern is regular, symmetrical, Breath sounds are clear bilaterally. GI: No deficits noted. No signs and/or symptoms were reported involving the gastrointestinal system. Abdomen is round non-distended, Bowel sounds present X 4 quads. : No deficits noted. No signs and/or symptoms were reported regarding the genitourinary system. EENT: No deficits noted. No signs and/or symptoms were reported regarding the EENT system. Derm: No deficits noted. No signs and/or symptoms reported regarding the dermatologic system. Skin is intact, is healthy with good turgor, Skin is dry, Skin is pink, warm \T\ dry. Musculoskeletal: No deficits noted. No signs and/or symptoms reported regarding the musculoskeletal system. Vital Signs: 15:35 BP 121 / 75; Pulse 99; Resp 18; Pulse Ox 96% on R/A; ap3 16:49 BP 134 / 79; Pulse 90; Resp 16; Pulse Ox 98% on R/A; ab2 ED Course: 15:35 Patient arrived in ED. ap3 15:39 Kai Huddleston PA is PHCP. [facility] 15:39 Fiorella De Los Santos MD is Attending Physician. jmm 15:40 Triage completed. ap3 15:42 Arm band placed on right wrist. ap3 15:42 Patient has correct armband on for positive identification. Bed in low position. Call ap3 light in reach. Side rails up X2. ekg monitor tech on. Pulse ox on. NIBP on. Door closed. Noise minimized. 15:44 CT Head C Spine In Process Unspecified. EDMS 16:06 Bakari Rodriguez is Primary Nurse. ab2 16:59 No provider procedures requiring assistance completed. Patient did not have IV access ab2 during this emergency room visit. Administered Medications: No medications were administered Outcome: 16:12 Discharge ordered by . david 16:59 Discharged to home via wheelchair, with family. ab2 16:59 Condition: good 16:59 Discharge instructions given to family, Instructed on discharge instructions, follow up and referral plans. Demonstrated understanding of instructions, follow-up care. 16:59 Patient left the ED. ab2 Signatures: Dispatcher [employer] EDMS Kai Huddleston PA PA jmm Prokisch, Amanda, RN RN ap3 Bakari Rodriguez ab2
--- NOTE | 2021-12-12 16:13 | EDPHYS ---
Physician Documentation [facility] Name: Nilda Daigle Age: 81 yrs Sex: Female : 1940 Arrival Date: 12/12/2021 Time: 15:35 Bed 19 Private MD: ED Physician Fiorella De Los Santos HPI: 12/12 15:47 This 81 yrs old Female presents to ER via EMS with complaints of fall. [facility] 15:47 The patient or guardian reports injury. The complaints affect the right temporal area. jmm Onset: The symptoms/episode began/occurred acutely, at an unknown time. Associated signs and symptoms: Pertinent negatives: vomiting. It is unknown whether or not the patient has had similar symptoms in the past. This is an 81 year old female with a history dementia that presents to the ED after a fall which was at her halfway. Unsure of LOC. No vomiting. Patient takes eliquis. Nonverbal.. Historical: - Allergies: 15:40 Ciprofloxacin; ap3 15:40 Cymbalta; ap3 - Immunization history:: Client reports receiving the 2nd dose of the Covid vaccine. - Social history:: Smoking status: unknown. ROS: 15:47 Unable to obtain ROS due to baseline dementia. [facility] Exam: 15:47 Eyes: EOMI, no conjunctival erythema appreciated ENT: Moist Mucus Membranes Neck: [facility] Trachea midline, Supple Chest/axilla: Normal chest wall appearance and motion. Cardiovascular: Regular rate and rhythm. No edema appreciated Respiratory: Normal respirations, no respiratory distress appreciated Abdomen/GI: Non distended, soft Back: Normal ROM Skin: General appearance color normal 15:47 Constitutional: The patient appears alert, awake. 15:47 Head/face: small right sided hematoma, no battles signs, no raccoon eyes. 15:47 Neuro: Orientation: unable to test, the patient has a history of dementia. 15:47 Psych: Behavior/mood is pleasant. Vital Signs: 15:35 BP 121 / 75; Pulse 99; Resp 18; Pulse Ox 96% on R/A; ap3 16:49 BP 134 / 79; Pulse 90; Resp 16; Pulse Ox 98% on R/A; ab2 MDM: 15:39 Patient medically screened. [facility] 16:11 Data reviewed: vital signs, nurses notes. Counseling: I had a detailed discussion with david the patient and/or guardian regarding: the historical points, exam findings, and any diagnostic results supporting the discharge/admit diagnosis, radiology results, the need for outpatient follow up, to return to the emergency department if symptoms worsen or persist or if there are any questions or concerns that arise at home. ED course: Imaging studies negative. Given head injury return precautions. . 12/12 15:40 Order name: CT Head C Spine; Complete Time: 16:11 [facility] Administered Medications: No medications were administered Disposition: 12/13 12:51 Co-signature as Attending Physician, Fiorella De Los Santos MD I agree with the assessment and sp3 plan of care. Disposition Summary: 12/12/21 16:12 Discharge Ordered Location: Home [facility] Condition: Stable [facility] Diagnosis - Unspecified injury of head, initial encounter [facility] Followup: [facility] - With: Private Physician - When: As needed - Reason: Recheck today's complaints, Continuance of care, Re-evaluation by your physician Discharge Instructions: - Discharge Summary Sheet [facility] - Head Injury, Adult [facility] Forms: - Medication Reconciliation Form [facility] - Thank You Letter [facility] - Antibiotic Education [facility] - Prescription Opioid Use [facility] Signatures: Dispatcher [employer] EDMS Kai Huddleston PA PA jmm Prokisch, Amanda, CAROLA RN ap3 Fiorella De Los Santos MD MD sp3
[2021-12-12 17:06] VITALS: BP 134/79; O2SAT 98
== END 2021-12-12 16:59 | disposition home or self-care (01) ==
LOC: ER 15:31
DX: S09.90XA Unspecified injury of head, initial encounter (principal); W19.XXXA Unspecified fall, initial encounter; Y92.129 Unspecified place in nursing home as the place of occurrence of the external cause; F03.90 Unspecified dementia, unspecified severity, without behavioral disturbance, psychotic disturbance, mood disturbance, and anxiety; Z88.1 Allergy status to other antibiotic agents
CPT/HCPCS: 70450; 72125; 99284

== ENCOUNTER 2021-12-21 14:48 | Emergency (ER) | payer OTHER ==
--- NOTE | 2021-12-21 15:43 | RAD REPORT ---
EXAM DESCRIPTION: RAD - Pelvis - 12/21/2021 3:36 pm CLINICAL HISTORY: TRAUMA COMPARISON: No comparisons TECHNIQUE: AP imaging of the pelvis was obtained. FINDINGS: No fracture of the pelvis identifiable. No pubic symphysis diastases. SI joints and sacral ala are too obscured by bowel content to allow assessment. No fracture or dislocation of either prox imal femur. No significant hip joint finding. IMPRESSION: Negative pelvis
--- NOTE | 2021-12-21 15:46 | RAD REPORT ---
EXAM DESCRIPTION: CT - CTHCSPWOC - 12/21/2021 3:31 pm CLINICAL HISTORY: PAIN, fall, head and neck injury COMPARISON: Head C Spine Mpr Wo Con dated 12/12/2021 TECHNIQUE: Axial 5 mm thick images of the head were obtained. Axial 2 mm thick images of the cervic al spine were obtained with sagittal and coronal reconstruction images generated and reviewed. All CT scans are performed using dose optimization technique as appropriate and may include automated exposure control or mA/KV adjustment according to patient size. FINDINGS: No intracranial hemorrhage, mass, edema or acute intracranial finding. No suspicion for ac bora infarction. No cortical edema or sulcal effacement. Prominent atrophy and chronic ischemic change s are present. Ventricles are in proportion to the volume loss. The intracranial findings are unchang ed the short interval December 12 study. Mastoid air cells and paranasal sinuses are clear. No globe or orbit abnormality seen. Cervical bodies are normal in height. Subluxation of C3 on C4 and C4 on C5 matches the comparison santo dy and is secondary to prominent facet joint degenerative change. Moderate C4-5 and advanced C5-6, C6 -7, C7-T1 and T1-T2 disc space narrowing and endplate spurring changes are present. No fracture or ac bora bony abnormality. Central canal detail is inherently limited. No paraspinal mass or hematoma. IMPRESSION: Advanced atrophy and chronic ischemic change similar to short interval December [address] Head finding. Prominent cervical spine degenerative change similar to comparison. No acute finding or significant i nterval change.
--- NOTE | 2021-12-21 15:55 | ER ---
Nurse's Notes [facility] Name: Nilda Daigle Age: 81 yrs Sex: Female : 1940 Arrival Date: 12/21/2021 Time: 15:15 Bed 8 Private MD: Diagnosis: Unspecified superficial injury of other part of head, initial encounter Presentation: 12/21 15:05 Chief complaint: EMS states: unwitnessed fall, on eliquis for DVT. Patient putt 6" hole jg9 in wall from head, hematoma noted to left parietal region, patient at baseline mentation-aphasic. Coronavirus screen: Vaccine status:. Ebola Screen: Patient negative for fever greater than or equal to 101.5 degrees Fahrenheit, and additional compatible Ebola Virus Disease symptoms Patient denies exposure to infectious person. Patient denies travel to an Ebola-affected area in the 21 days before illness onset. Initial Sepsis Screen: Does the patient meet any 2 criteria? No. Patient's initial sepsis screen is negative. Does the patient have a suspected source of infection? No. Patient's initial sepsis screen is negative. Risk Assessment: Do you want to hurt yourself or someone else? Patient reports no desire to harm self or others. Note unwitnessed fall. 15:05 Method Of Arrival: EMS: [facility] j9 15:05 Acuity: TATIANA 3 jg9 15:28 Onset of symptoms was December 21, 2021. jg9 15:38 Care prior to arrival: c spine (collar, board). Mechanism of Injury: Fall unwittnessed. jg9 15:42 Trauma event details: Injury occurred: [place]. jg9 Triage Assessment: 15:26 General: Appears in no apparent distress. Behavior is calm. Pain: Unable to use pain jg9 scale. Trauma Activation: Alert Physician: ED Physician; Name: ; Notified At: 15:07; Arrived At: 15:07 Physician: General Surgeon; Name: ; Notified At: 15:07; Arrived At: Physician: Radiology; Name: ; Notified At: 15:07; Arrived At: 15:08 Physician: Respiratory; Name: ; Notified At: 15:07; Arrived At: Physician: Lab; Name: ; Notified At: 15:07; Arrived At: Historical: - Allergies: 15:31 Ciprofloxacin; jg9 15:31 Cymbalta; jg9 - PMHx: 15:31 Alzheimer's disease; malignant neoplasm of unspecified site of right breast; jg9 Hypothyroidism; vitamin D deficiency; frontotemporal dementia; Osteoarthritis; Osteoporosis; overactive bladder; aphasia; pulmonary embolism; - Immunization history:: Client reports receiving the 2nd dose of the Covid vaccine, Pneumococcal vaccine is up to date, Flu vaccine is up to date. - Social history:: Smoking status: Patient denies any tobacco usage or history of. - Immunization history: Last tetanus immunization: - up to date. Screenin:25 Abuse screen: Denies threats or abuse. Denies injuries from another. Nutritional jg9 screening: No deficits noted. Tuberculosis screening: No symptoms or risk factors identified. Fall Risk Fall in past 12 months (25 points). Primary Survey: 15:05 NO uncontrolled hemorrhage observed. A: The patient is alert. Airway: patent. jg9 Breathing/Chest: Respiratory pattern: regular, Respiratory effort: spontaneous, unlabored, Breath sounds: clear, bilaterally. Chest inspection: symmetrical rise and fall of the chest. Circulation: Cardiac rhythm: sinus rhythm Heart tones present. Pulses: palpable right radial artery and left radial artery. Disability Alert. Exposure/Environment: All clothing and personal items were removed. A warming method has been applied: A warm blanket has been provided to the patient. Reassessment. 15:35 Reassessment Breathing/Chest. jg9 Secondary Survey: 15:10 HEENT: Head Other l parietal hematoma/reddness Face No injury/deformity Eyes: No injury jg9 or deformity noted. Ears: clear Nose: clear Throat: No injury or deformity noted. is clear. Gastrointestinal: No deficits noted. : No deficits noted. Musculoskeletal: No deficits noted. Assessment: 15:05 General: Appears Behavior is calm. jg9 16:10 Reassessment: Patient appears in no apparent distress at this time. No changes from jd3 previously documented assessment. Patient and/or family updated on plan of care and expected duration. Pain level reassessed. Vital Signs: 15:05 BP 129 / 76; Pulse 63; Resp 20; Temp 98.5(TE); Pulse Ox 100% on R/A; Weight 72.57 kg; jg9 Height 5 ft. 0 in. (152.40 cm); 16:08 BP 127 / 61; Pulse 78; Resp 18 S; Pulse Ox 96% on R/A; jd3 15:05 Body Mass Index 31.25 (72.57 kg, 152.40 cm) jg9 [place] Coma Score: 15:05 Eye Response: spontaneous(4). Verbal Response: none(1). Motor Response: obeys jg9 commands(6). Total: 11. Trauma Score (Adult): 15:05 Eye Response: spontaneous(1); Verbal Response: none(0); Motor Response: obeys jg9 commands(2); Systolic BP: > 89 mm Hg(4); Respiratory Rate: 10 to 29 per min(4); [place] Score: 11; Trauma Score: 11 ED Course: 15:05 Patient maintains SpO2 saturation greater than 95% on room air. jg9 15:10 Thermoregulation: warm blanket given to patient. jg9 15:15 Patient arrived in ED. rashid 15:16 Juaquin Munoz PA is PHCP. jr8 15:16 Telly Tolentino MD is Attending Physician. jr8 15:18 Liset Zarate, CAROLA is Primary Nurse. jg9 15:24 Triage completed. jg9 15:27 Maintain EMS IV. Dressing intact. Gauge \\T\\ site: 20g left wrist. jg9 15:28 Arm band placed on right wrist. jg9 15:31 CT Head C Spine In Process Unspecified. EDMS 15:36 XRAY Pelvis In Process Unspecified. EDMS 16:09 Patient has correct armband on for positive identification. Bed in low position. Call jd3 light in reach. Side rails up X2. Pulse ox on. NIBP on. Administered Medications: No medications were administered Outcome: 15:54 Discharge ordered by . jr8 16:53 Patient left the ED. jg9 Signatures: Dispatcher [employer] EDMS Juaquin Munoz PA PA jr8 Holden Augustine RN RN jJeane Muse Liset Zarate RN RN jg9 Corrections: (The following items were deleted from the chart) 15:26 15:05 BP 129 / 76; Pulse 63bpm; Resp 20bpm; Pulse Ox 100% RA; Temp 98.5F Temporal; jg9 74.84 kg; Height 5 ft. 5 in.; BMI: 27.4; jg9
--- NOTE | 2021-12-21 15:55 | EDPHYS ---
Physician Documentation [facility] Name: Nilda Daigle Age: 81 yrs Sex: Female : 1940 Arrival Date: 12/21/2021 Time: 15:15 Bed 8 Private MD: ED Physician Telly Tolentino HPI: 12/21 15:19 This 81 yrs old Female presents to ER via Unassigned with complaints of Fall. jr8 15:19 Details of fall: The patient fell from seated position, out of a wheelchair. Onset: The jr8 symptoms/episode began/occurred acutely, today. Associated injuries: The patient sustained injury to the head, hematoma. Severity of symptoms: At their worst the symptoms were mild. It is unknown whether or not the patient has had similar symptoms in the past. It is unknown whether or not the patient has recently seen a physician. EMS called out by [place] after patient had unwitnessed fall. EMS stated that she has mild hematoma to left side of head. Had put a 6 inch hole in the wall from the fall. On blood thinners . Historical: - Allergies: 15:31 Ciprofloxacin; jg9 15:31 Cymbalta; jg9 - PMHx: 15:31 Alzheimer's disease; malignant neoplasm of unspecified site of right breast; jg9 Hypothyroidism; vitamin D deficiency; frontotemporal dementia; Osteoarthritis; Osteoporosis; overactive bladder; aphasia; pulmonary embolism; - Immunization history:: Client reports receiving the 2nd dose of the Covid vaccine, Pneumococcal vaccine is up to date, Flu vaccine is up to date. - Social history:: Smoking status: Patient denies any tobacco usage or history of. - Immunization history: Last tetanus immunization: - up to date. ROS: 15:19 Unable to obtain ROS due to baseline dementia. jr8 Exam: 15:19 Eyes: Pupils equal round and reactive to light, extra-ocular motions intact. Lids and jr8 lashes normal. Conjunctiva and sclera are non-icteric and not injected. Cornea within normal limits. Periorbital areas with no swelling, redness, or edema. ENT: Nares patent. No nasal discharge, no septal abnormalities noted. Tympanic membranes are normal and external auditory canals are clear. Oropharynx with no redness, swelling, or masses, exudates, or evidence of obstruction, uvula midline. Mucous membranes moist. Neck: Trachea midline, no thyromegaly or masses palpated, and no cervical lymphadenopathy. Supple, full range of motion without nuchal rigidity Chest/axilla: Normal chest wall appearance and motion. No deformity. No lesions are appreciated. Cardiovascular: Regular rate and rhythm with a normal S1 and S2. No gallops, murmurs, or rubs. Normal PMI, no JVD. No pulse deficits. Respiratory: Lungs have equal breath sounds bilaterally, clear to auscultation and percussion. No rales, rhonchi or wheezes noted. No increased work of breathing, no retractions or nasal flaring. Abdomen/GI: Soft with normal bowel sounds. No distension or tympany. No guarding or rebound. Back: No external signs of trauma Full range of motion. Skin: Warm, dry with normal turgor. Normal color with no rashes, no lesions, and no evidence of cellulitis. MS/ Extremity: Pulses equal, no cyanosis. Neurovascular intact. Full, normal range of motion. 15:19 Head/face: Noted is contusion, that is superficial, of the right side of the back of head. 15:19 Neuro: Orientation: no acute changes, per EMS, Mentation: able to follow commands, Memory: unable to test, aphasic , Motor: moves all fours, Sensation: no obvious gross deficits, seizure activity, is not displayed by the patient, Abnormal movements: there are no abnormal movements. Vital Signs: 15:05 BP 129 / 76; Pulse 63; Resp 20; Temp 98.5(TE); Pulse Ox 100% on R/A; Weight 72.57 kg; jg9 Height 5 ft. 0 in. (152.40 cm); 16:08 BP 127 / 61; Pulse 78; Resp 18 S; Pulse Ox 96% on R/A; jd3 15:05 Body Mass Index 31.25 (72.57 kg, 152.40 cm) jg9 [place] Coma Score: 15:05 Eye Response: spontaneous(4). Verbal Response: none(1). Motor Response: obeys jg9 commands(6). Total: 11. Trauma Score (Adult): 15:05 Eye Response: spontaneous(1); Verbal Response: none(0); Motor Response: obeys jg9 commands(2); Systolic BP: > 89 mm Hg(4); Respiratory Rate: 10 to 29 per min(4); Luis Score: 11; Trauma Score: 11 MDM: 15:16 Patient medically screened. jr8 15:53 Data reviewed: vital signs, nurses notes, radiologic studies, CT scan. Data jr8 interpreted: Pulse oximetry: on room air is 100 %. Interpretation: normal. Counseling: I had a detailed discussion with the patient and/or guardian regarding: the historical points, exam findings, and any diagnostic results supporting the discharge/admit diagnosis, radiology results, the need for outpatient follow up, a family practitioner, to return to the emergency department if symptoms worsen or persist or if there are any questions or concerns that arise at home. 12/21 15:16 Order name: XRAY Pelvis; Complete Time: 15:45 jr8 12/21 15:16 Order name: CT Head C Spine; Complete Time: 15:53 jr8 Administered Medications: No medications were administered Disposition: 17:01 Co-signature as Attending Physician, Telly Tolentino MD. rn Disposition Summary: 12/21/21 15:54 Discharge Ordered Location: Home jr8 Problem: new jr8 Symptoms: have improved jr8 Condition: Stable jr8 Diagnosis - Unspecified superficial injury of other part of head, initial encounter jr8 Followup: jr8 - With: Private Physician - When: 2 - 3 days - Reason: Recheck today's complaints, Continuance of care, Re-evaluation by your physician Discharge Instructions: - Discharge Summary Sheet jr8 - Head Injury, Adult jr8 Forms: - Medication Reconciliation Form jr8 - Thank You Letter jr8 - Antibiotic Education jr8 - Prescription Opioid Use jr8 Signatures: Dispatcher [employer] EDTelly Wheeler MD MD rn Roszak, Josh, PA PA jr8 Liset Zarate RN RN jg9
[2021-12-21 17:28] VITALS: TEMP 98.5
[2021-12-21 17:29] VITALS: BP 127/61; O2SAT 96
== END 2021-12-21 16:53 | disposition home or self-care (01) ==
LOC: ER 14:48
DX: S00.83XA Contusion of other part of head, initial encounter (principal); W05.0XXA Fall from non-moving wheelchair, initial encounter; G30.9 Alzheimer's disease, unspecified; F02.80 Dementia in other diseases classified elsewhere, unspecified severity, without behavioral disturbance, psychotic disturbance, mood disturbance, and anxiety; E03.9 Hypothyroidism, unspecified; Z85.3 Personal history of malignant neoplasm of breast; Z88.1 Allergy status to other antibiotic agents; Z88.8 Allergy status to other drugs, medicaments and biological substances
CPT/HCPCS: 70450; 72125; 72170; 99284

== ENCOUNTER 2022-05-01 13:12 | Emergency (ER) | payer OTHER ==
[2022-05-01 14:31] LABS: Absolute Lymphocytes (CBC) 2.2 K/uL (0.7-4.9); Hematocrit 42.6 % (36.0-45.0); MCV 102.8 fL (80-100); RBC Red Blood Cell Count 4.15 M/uL (3.86-4.86)
[2022-05-01 14:35] LABS: Protime INR 1.35
[2022-05-01] MEDS ORDERED: LIDOCAINE 1% MPF 5 ML VIAL ONE (14:49)
[2022-05-01 14:52] LABS: Albumin 3.7 g/dL (3.4-5.0); Bilirubin Direct 0.1 mg/dL (0-0.2); Bilirubin Total 0.6 mg/dL (0.2-1.0); Magnesium 2.1 mg/dL (1.8-2.4); Potassium 3.9 mmol/L (3.5-5.1); Protein, Total 7.6 g/dL (6.4-8.2); Troponin High Sensitivity 6.8 pg/mL (<58.9)
--- NOTE | 2022-05-01 15:46 | RAD REPORT ---
EXAM DESCRIPTION: RAD - Chest Single View - 05/01/2022 3:38 pm CLINICAL HISTORY: COUGH Chest pain. COMPARISON: Chest Single View dated 09/04/2021; Chest Single View dated 08/26/2021; Chest Single View dated 08/22/2021; Chest Single View dated 08/21/2021 FINDINGS: Portable technique limits examination quality. The lungs are grossly clear. The heart is normal in size. No displaced fractures.Moderate to large hi atal hernia. IMPRESSION: No acute intrathoracic process suspected.
--- NOTE | 2022-05-01 15:49 | RAD REPORT ---
EXAM DESCRIPTION: RAD - Foot Right 3 View - 05/01/2022 3:38 pm CLINICAL HISTORY: PAIN COMPARISON: No comparisons FINDINGS: Diffuse osteopenia. Small plantar calcaneal spur. No acute fracture evident. No definitive evidence of osteomyelitis. However, if osteomyelitis remains a clinical concern, MRI the foot would be recommended for better assessment.
--- NOTE | 2022-05-01 15:52 | ER ---
Nurse's Notes [facility] Name: Nilda Daigle Age: 81 yrs Sex: Female : 1940 Arrival Date: 05/01/2022 Time: 13:17 Bed 8 Private MD: Diagnosis: Cellulitis and acute lymphangitis of other parts of limb-right great toe mild;Tinea unguium-right great toenail Presentation: 05/01 13:17 Chief complaint: EMS states: HOME [facility] CALLED FOR SUSPECTED RIGHT BIG TOE INFECTION. bp Coronavirus screen: At this time, the client does not indicate any symptoms associated with coronavirus-19. Ebola Screen: No symptoms or risks identified at this time. Initial Sepsis Screen: Does the patient meet any 2 criteria? No. Patient's initial sepsis screen is negative. Does the patient have a suspected source of infection? No. Patient's initial sepsis screen is negative. Risk Assessment: Do you want to hurt yourself or someone else? Patient reports no desire to harm self or others. Onset of symptoms was May 01, 2022. Care prior to arrival: Glucose check: 166. 13:17 Method Of Arrival: EMS: [facility] bp 13:17 Acuity: TATIANA 4 bp 13:50 Acuity: TATIANA 3 iw Triage Assessment: 13:18 General: Appears in no apparent distress. comfortable, Behavior is calm, cooperative. bp Pain: Denies pain. EENT: No deficits noted. Neuro: Level of Consciousness is awake, obeys commands. Cardiovascular: No deficits noted. Respiratory: No deficits noted. GI: No signs and/or symptoms were reported involving the gastrointestinal system. : No signs and/or symptoms were reported regarding the genitourinary system. Derm: No deficits noted. Musculoskeletal: No deficits noted. Historical: - Allergies: 13:18 Ciprofloxacin; bp 13:18 Cymbalta; bp - Home Meds: 13:18 docusate sodium 100 mg Oral cap 2 caps once daily [Active]; Eliquis 5 mg oral tab 1 tab bp 2 times per day [Active]; hydrochlorothiazide 25 mg Oral tab 1 tab once daily [Active]; hydrocortisone 1 % Topical crea once daily [Active]; levothyroxine 88 mcg tab 1 tab once daily [Active]; loratadine 10 mg oral tab 1 tab once daily [Active]; metoprolol succinate 50 mg oral Tb24 1 tab once daily [Active]; Myrbetriq 50 mg oral Tb24 1 tab once daily [Active]; quetiapine 25 mg oral tab 1 tab 3 times per day [Active]; - PMHx: 13:18 Alzheimer's disease; Aphasia; frontotemporal dementia; Hypothyroidism; 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 - Social history:: Smoking status: Patient denies any tobacco usage or history of. - Family history:: not pertinent. Screenin:20 Abuse screen: Denies threats or abuse. Denies injuries from another. Nutritional bp screening: No deficits noted. Tuberculosis screening: No symptoms or risk factors identified. Fall Risk None identified. Assessment: 13:20 General: SEE TRIAGE NOTE. bp 14:30 Reassessment: No changes from previously documented assessment. Patient and/or family bp updated on plan of care and expected duration. Pain level reassessed. 15:30 Reassessment: DC ON HOLD FOR IV ABX. bp 17:05 Reassessment: PT D/C HOME VIA W/C WITH FAMILY. PER FAMILY REQUEST, RX FAX TO [facility] LISTED IN [employer]. Vital Signs: 13:17 BP 125 / 81; Pulse 85; Resp 17; Temp 99.5; Pulse Ox 95% ; bp 14:30 BP 112 / 87; Pulse 95; Resp 21; Pulse Ox 95% ; bp 15:30 BP 115 / 86; Pulse 90; Resp 23; Pulse Ox 95% ; bp 17:05 BP 123 / 76; Pulse 90; Resp 20; Pulse Ox 94% ; bp ED Course: 13:17 Patient arrived in ED. bp 13:17 Arm band placed on. bp 13:18 Triage completed. bp 13:20 Patient has correct armband on for positive identification. Bed in low position. Call bp light in reach. Side rails up X2. 13:24 Singh Fletcher, CAROLA is Primary Nurse. bp 13:26 Henry Esquivel MD is Attending Physician. alan 14:30 Inserted saline lock: 20 gauge in left antecubital area, using aseptic technique. Blood bp collected. 15:00 Assist provider with nail repair of excision of nail. of right great toe. bp 15:19 Foot Right 3 View XRAY Sent. jh6 15:40 XRAY Chest (1 view) In Process Unspecified. EDMS 15:40 Foot Right 3 View XRAY In Process Unspecified. EDMS 15:48 Singh Dowell DPM is Referral Physician. alan 17:05 IV discontinued, intact, bleeding controlled, No redness/swelling at site. Pressure bp dressing applied. Administered Medications: 15:57 Drug: Bactroban (mupirocin) Ointment 2 % 1 application Route: Topical; Site: wound; 6 15:57 Drug: Ancef (cefazolin) 1 grams Route: IVPB; Site: left antecubital; [facility] 17:07 Follow up: IV Status: Completed infusion; IV Intake: 100ml bp Medication: 13:20 VIS not applicable for this client. bp Intake: 17:07 IV: 100ml; Total: 100ml. bp Outcome: 15:51 Discharge ordered by MD. alan 17:05 [facility] bp 17:05 Condition: stable 17:05 Discharge instructions given to patient, family, Instructed on discharge instructions, follow up and referral plans. medication usage, Demonstrated understanding of instructions, follow-up care, medications, Prescriptions given X 2. 17:12 Patient left the ED. bp Signatures: Dispatcher [employer] Henry Merchant MD MD cha Williams, Irene, RN Singh Rajput, RN RN Liset Patricio RN RN jh6 Corrections: (The following items were deleted from the chart) 17:07 17:05 Reassessment: PT D/C HOME VIA W/C WITH FAMILY bp bp
--- NOTE | 2022-05-01 15:52 | EDPHYS ---
Physician Documentation [facility] Name: Nilda Daigle Age: 81 yrs Sex: Female : 1940 Arrival Date: 05/01/2022 Time: 13:17 Bed 8 Private MD: ED Physician Henry Esquivel HPI: 05/01 15:40 This 81 yrs old Female presents to ER via EMS with complaints of Toe Injury. alan 15:40 The patient presents with decreased range of motion, pain, that is acute. The alan complaints affect the right foot, Right first toenail. Context: The problem was sustained at an unknown location. Onset: The symptoms/episode began/occurred 1 week(s) ago. Modifying factors: The symptoms are alleviated by nothing, the symptoms are aggravated by movement. Associated signs and symptoms: The patient has no apparent associated signs or symptoms. Severity of symptoms: At their worst the symptoms were mild, in the emergency department the symptoms are unchanged. The patient has not experienced similar symptoms in the past. Historical: - Allergies: 13:18 Ciprofloxacin; bp 13:18 Cymbalta; bp - Home Meds: 13:18 docusate sodium 100 mg Oral cap 2 caps once daily [Active]; Eliquis 5 mg oral tab 1 tab bp 2 times per day [Active]; hydrochlorothiazide 25 mg Oral tab 1 tab once daily [Active]; hydrocortisone 1 % Topical crea once daily [Active]; levothyroxine 88 mcg tab 1 tab once daily [Active]; loratadine 10 mg oral tab 1 tab once daily [Active]; metoprolol succinate 50 mg oral Tb24 1 tab once daily [Active]; Myrbetriq 50 mg oral Tb24 1 tab once daily [Active]; quetiapine 25 mg oral tab 1 tab 3 times per day [Active]; - PMHx: 13:18 Alzheimer's disease; Aphasia; frontotemporal dementia; Hypothyroidism; 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 - Social history:: Smoking status: Patient denies any tobacco usage or history of. - Family history:: not pertinent. ROS: 15:40 Constitutional: Negative for fever, chills, and weight loss, Eyes: Negative for injury, alan pain, redness, and discharge, ENT: Negative for injury, pain, and discharge, Neck: Negative for injury, pain, and swelling, Cardiovascular: Negative for chest pain, palpitations, and edema, Respiratory: Negative for shortness of breath, cough, wheezing, and pleuritic chest pain, Abdomen/GI: Negative for abdominal pain, nausea, vomiting, diarrhea, and constipation, Back: Negative for injury and pain, : Negative for injury, bleeding, discharge, and swelling, Skin: Negative for injury, rash, and discoloration, Neuro: Negative for headache, weakness, numbness, tingling, and seizure, Psych: Negative for depression, anxiety, suicide ideation, homicidal ideation, and hallucinations, Allergy/Immunology: Negative for hives, rash, and allergies, Endocrine: Negative for neck swelling, polydipsia, polyuria, polyphagia, and marked weight changes, Hematologic/Lymphatic: Negative for swollen nodes, abnormal bleeding, and unusual bruising. 15:40 MS/extremity: Positive for pain, tenderness, warmth, of the Right first toenail. Exam: 15:40 Constitutional: This is a well developed, well nourished patient who is awake, alert, alan and in no acute distress. Head/Face: Normocephalic, atraumatic. Eyes: Pupils equal round and reactive to light, extra-ocular motions intact. Lids and lashes normal. Conjunctiva and sclera are non-icteric and not injected. Cornea within normal limits. Periorbital areas with no swelling, redness, or edema. ENT: Nares patent. No nasal discharge, no septal abnormalities noted. Tympanic membranes are normal and external auditory canals are clear. Oropharynx with no redness, swelling, or masses, exudates, or evidence of obstruction, uvula midline. Mucous membranes moist. Neck: Trachea midline, no thyromegaly or masses palpated, and no cervical lymphadenopathy. Supple, full range of motion without nuchal rigidity, or vertebral point tenderness. No Meningismus. Chest/axilla: Normal chest wall appearance and motion. Nontender with no deformity. No lesions are appreciated. Cardiovascular: Regular rate and rhythm with a normal S1 and S2. No gallops, murmurs, or rubs. Normal PMI, no JVD. No pulse deficits. Respiratory: Lungs have equal breath sounds bilaterally, clear to auscultation and percussion. No rales, rhonchi or wheezes noted. No increased work of breathing, no retractions or nasal flaring. Abdomen/GI: Soft, non-tender, with normal bowel sounds. No distension or tympany. No guarding or rebound. No evidence of tenderness throughout. Back: No spinal tenderness. No costovertebral tenderness. Full range of motion. Skin: Warm, dry with normal turgor. Normal color with no rashes, no lesions, and no evidence of cellulitis. Neuro: Awake and alert, GCS 15, oriented to person, place, time, and situation. Cranial nerves II-XII grossly intact. Motor strength 5/5 in all extremities. Sensory grossly intact. Cerebellar exam normal. Normal gait. Psych: Awake, alert, with orientation to person, place and time. Behavior, mood, and affect are within normal limits. 15:40 Musculoskeletal/extremity: ROM: no acute changes, Circulation is intact in all extremities. Sensation intact. Compartment Syndrome exam of affected extremity: is normal. DVT Exam: negative Homans' sign noted on exam, no appreciated bluish discoloration, pain, swelling, tenderness, erythema, increased warmth. Vital Signs: 13:17 BP 125 / 81; Pulse 85; Resp 17; Temp 99.5; Pulse Ox 95% ; bp 14:30 BP 112 / 87; Pulse 95; Resp 21; Pulse Ox 95% ; bp 15:30 BP 115 / 86; Pulse 90; Resp 23; Pulse Ox 95% ; bp 17:05 BP 123 / 76; Pulse 90; Resp 20; Pulse Ox 94% ; bp Procedures: 15:54 Performed josé miguel nail removal of loose nail, without complications, cleaned and dressed.alan MDM: 13:26 Patient medically screened. alan 15:53 Differential diagnosis: fracture, sprain, arthritis, cellulitis. Data reviewed: vital alan signs, nurses notes, lab test result(s), EKG, radiologic studies, plain films. Data interpreted: lunchroom monitor: rate is 85 beats/min, rhythm is regular, Pulse oximetry: on room air is 95 %. Test interpretation: by ED physician or midlevel provider: plain radiologic studies. Counseling: I had a detailed discussion with the patient and/or guardian regarding: the historical points, exam findings, and any diagnostic results supporting the discharge/admit diagnosis, lab results, radiology results, the need for outpatient follow up, for definitive care, a family practitioner, a plate mounter. 05/01 13:46 Order name: Basic Metabolic Panel; Complete Time: 15:39 [facility] 05/01 13:46 Order name: CBC with Diff; Complete Time: 15:39 [facility] 05/01 13:46 Order name: LFT's; Complete Time: 15:39 [facility] 05/01 13:46 Order name: Magnesium; Complete Time: 15:39 [facility] 05/01 13:46 Order name: NT PRO-BNP; Complete Time: 15:39 [facility] 05/01 13:46 Order name: PT-INR; Complete Time: 15:39 [facility] 05/01 13:46 Order name: Troponin HS; Complete Time: 15:39 [facility] 05/01 13:46 Order name: XRAY Chest (1 view) [facility] 05/01 13:46 Order name: SARS-COV-2 RT PCR (Document "Date of Onset" if Symptomatic) [facility] 05/01 13:46 Order name: Sed Rate; Complete Time: 15:39 [facility] 05/01 13:46 Order name: Foot Right 3 View XRAY [facility] 05/01 13:46 Order name: Cardiac monitoring; Complete Time: 13:48 [facility] 05/01 13:46 Order name: EKG - Nurse/Tech; Complete Time: 17:08 [facility] 05/01 13:46 Order name: O2 Per Protocol; Complete Time: 13:49 [facility] 05/01 13:46 Order name: O2 Sat Monitoring; Complete Time: 13:49 [facility] Administered Medications: 15:57 Drug: Bactroban (mupirocin) Ointment 2 % 1 application Route: Topical; Site: wound; [facility] 15:57 Drug: Ancef (cefazolin) 1 grams Route: IVPB; Site: left antecubital; [facility] 17:07 Follow up: IV Status: Completed infusion; IV Intake: 100ml bp Disposition Summary: 05/01/22 15:51 Discharge Ordered Location: Home alan Problem: new alan Symptoms: have improved alan Condition: Stable alan Diagnosis - Cellulitis and acute lymphangitis of other parts of limb - right great toe mild alan - Tinea unguium - right great toenail alan Followup: alan - With: Private Physician - When: 2 - 3 days - Reason: Recheck today's complaints, Continuance of care, Re-evaluation by your physician Followup: alan - With: Singh Dowell DPM - When: 2 - 3 days - Reason: Recheck today's complaints, Continuance of care, Re-evaluation by your physician Discharge Instructions: - Discharge Summary Sheet alan - Cellulitis, Adult alan - Fungal Nail Infection alan - Fingernail or Toenail Removal, Adult alan - Cellulitis, Adult, [id number] Forms: - Medication Reconciliation Form [facility] - Thank You Letter alan - Antibiotic Education [facility] - Prescription Opioid Use [facility] Prescriptions: - Centany 2 % Topical ointment - apply 1 application by TOPICAL route 3 times per day; 15 gram; Refills: 0, alan Product Selection Permitted - Cephalexin 500 mg Oral Capsule - take 1 capsule by ORAL route every 8 hours for 7 days; 21 capsule; Refills: 0, [facility] Product Selection Permitted Signatures: Dispatcher [employer] Henry Merchant MD MD cha Peltier, Brian, RN RN bp Liset Prado RN RN [id number]
[2022-05-01] MEDS ORDERED: CEFAZOLIN SODIUM 1 GM/VIAL ONE (15:58)
[2022-05-01] MEDS ORDERED: MUPIROCIN 2% OINT 22GM TUBE TOP ONE (15:58)
[2022-05-01] MEDS ORDERED: NA CHLORIDE 0.9% 100 ML ONE (15:59)
[2022-05-01 17:32] VITALS: TEMP 99.5
[2022-05-01 17:37] VITALS: BP 123/76; O2SAT 94
--- NOTE | 2022-05-02 09:51 | EKG ---
Test Date: 2022-05-01 Test Time: 14:03:39 Component Technician: GILBERTO MEASUREMENT RESULTS: Intervals: Rate: 97 SD: 174 QRSD: 68 QT: 348 QTc: 441 Billingsley: P: 82 SD: 174 QRS: 39 T: 15 INTERPRETIVE STATEMENTS: Sinus rhythm with premature supraventricular complexes and fusion complexes Possible Anterior infarct, age undetermined Abnormal ECG Compared to ECG 09/04/2021 21:59:48 Atrial premature complex(es) now present Fusion complex(es) now present Sinus arrhythmia no longer present Myocardial infarct finding still present Electronically Signed On 05-02-22 09:48:41 CDT by Mac Menendez
== END 2022-05-01 17:12 | disposition home or self-care (01) ==
LOC: ER 13:12
DX: L03.031 Cellulitis of right toe (principal); L03.041 Acute lymphangitis of right toe; B35.1 Tinea unguium; G30.9 Alzheimer's disease, unspecified; F02.80 Dementia in other diseases classified elsewhere, unspecified severity, without behavioral disturbance, psychotic disturbance, mood disturbance, and anxiety; E03.9 Hypothyroidism, unspecified; Z85.3 Personal history of malignant neoplasm of breast; Z88.1 Allergy status to other antibiotic agents; Z88.8 Allergy status to other drugs, medicaments and biological substances; Z20.822 Contact with and (suspected) exposure to COVID-19
CPT/HCPCS: 96365; 93005; 85025; 80048; 36415; 83735; 85610; 80076; 85652; 84484; 83880; 71045; 73630; 99284; U0003; J0690

== ENCOUNTER 2022-10-26 23:35 | Inpatient (IN) | payer OTHER ==
--- OUTSIDE RECORDS SUMMARY | 2022-10-26 23:37 | XMS REPORT | Continuity of Care Document ---
:1940 Author Organization [facility] t Address [facility] [place] [address] Care Team Providers Name Role Phone Pcp, Patient Does Not Have A Primary Care Physician [id number] Doctor Unassigned, [place] Attending Clinician Unavailable JESSE AVENDANO Attending Clinician Unavailable Jesse Avendano MD Attending Clinician JESSE AVENDANO Admitting Clinician Unavailable Payers Payer Name Policy Type Policy Number Effective Date Expiration Date S ource Problems Condition Condition Condition Status Onset Resolution Last Treating Co mments Source Name Details Category Date Date Treatment Clinician Date No known No known Disease Unive rs active active ity of problems problems [facility] Allergies, Adverse Reactions, Alerts Allergy Allergy Status Severity Reaction(s) Onset Inactive Treating Comm ents Source Name Type Date Date Clinician Duloxeti Propensi Active Unknown - 2020-11 Uni vers ne ty to See comments 2-18 ity of adverse 00:00: [place] reaction 00 Medical s Branch CIPROFLO DRUG Active Unknown-Cmnt 2020-11 Un joya XACIN INGREDI 2-18 ity of 00:00: [place] 00 Medical Branch DULOXETI DRUG Active Unknown-Cmnt 2020-11 Un joya NE INGREDI 2-18 ity of 00:00: [place] [address] [facility] Ciproflo Propensi Active Unknown - 2020-11 Uni vers xacin ty to See comments 2-18 ity of adverse 00:00: [place] reaction 00 Medical s [place] Social History Social Habit Start Date Stop Date Quantity Comments Source Exposure to Not sure [facility] SARS-CoV-2 (event) Medica l Branch Sex Assigned At [birth year] [facility] 00:00:00 00:00:00 Smoking Status Start Date Stop Date Source Tobacco smoking consumption unknown [facility] Medications Ordered Filled Start Stop Current Ordering Indication Dosage Frequency Signature Comments Components Source Medication Medication Date Date Medication? Clinician (SIG) Name Name ondansetron 2020-11 Yes [id number] 4mg Take 1 Univers (ZOFRAN) 4 2-18 tablet by ity of mg tablet 00:00: mouth [place] 00 every 8 Medical (eight) Branch hours as needed for Nausea and Vomiting (N/V). ondansetron 2020-11 Yes [id number] 4mg Take 1 Univers (ZOFRAN) 4 2-18 tablet by ity of mg tablet 00:00: mouth [place] 00 every 8 Medical (eight) Branch hours as needed for Nausea and Vomiting (N/V). Vital Signs Vital Name Observation Time Observation Value Comments Source Heart rate 2021-10-20 00:00:00 90 /min [facility] Oxygen saturation in 2021-10-20 00:00:00 93 /min [facility] Arterial blood by [facility] Pulse oximetry Branch Systolic blood 2021-10-19 22:00:00 131 mm[Hg] [facility] Diastolic blood 2021-10-19 22:00:00 79 mm[Hg] [facility] Respiratory rate 2021-10-19 22:00:00 19 /min [facility] Body temperature 2021-10-19 19:12:23 36.67 Renetta [facility] Body weight 2021-10-19 18:57:00 79.379 kg [facility] Procedures Procedure Date / Time Performing Clinician Source Performed EXTERNAL PROVIDER 2021-11-05 06:01:00 Doctor Unassigned, No [facility] RECORDS Name [facility] XR ABDOMEN 1 VW 2021-10-19 22:47:17 Jesse Avendano [facility] PROTHROMBIN TIME / INR 2021-10-19 22:37:00 Jesse Avendano [facility] URINALYSIS 2021-10-19 22:37:00 Jesse Avendano [facility] COMP. METABOLIC PANEL 2021-10-19 21:30:00 Jesse Avendano [facility] ([id number]) [facility] CBC WITH DIFF 2021-10-19 21:30:00 Jesse Avendano [facility] CONSENT/REFUSAL FOR 2021-10-19 19:03:46 [facility]igned, [facility] NOTICE OF PRIVACY 2021-10-19 19:03:30 Doctor Unassigned, No [facility] PRACTICES Name [facility] Plan of Care Planned Activity Planned Date Details Comments Source Future Scheduled 2022-10-17 COVID-19 VACCINE (#1) [facility] Test 12:57:20 [code = COVID-19 VACCINE (#1)] Future Scheduled 2022-10-17 SHINGLES VACCINES (1 Met [facility] Test 12:57:20 of 2) [code = SHINGLES VACCINES (1 of 2)] Future Scheduled 2022-10-17 65+ [facility] [facility] Test 12:57:20 VACCINE (1 - PCV) [code = 65+ PNEUMOCOCCAL VACCINE (1 - PCV)] Future Scheduled 2022-10-17 INFLUENZA VACCINE Method [facility] Test 12:57:20 [code = INFLUENZA VACCINE] Encounters Start End Encounter Admission Attending Care Care Encounter Source Date/Time Date/Time Type Type Clinicians Facility Department ID 2021-11-05 2021-11-05 Orders Doctor HAWKINS [id number] Univers 00:00:00 00:00:00 Only UnassignedAMINA [id number] ity of [place] [facility] [id number] Maicol as [id number] [place] [id number] Branch 2021-10-19 2021-10-19 Emergency X [facility] ERT [id number] Univers 12:54:00 18:27:00 JESSE ity [facility] 2021-10-19 2021-10-19 Emergency Critical access hospital [id number] Univers 12:54:00 18:27:00 Jesse YU [id number] [facility] [id number] [facility] [id number] [address] Results Test Description Test Time Test Comments [...] indications. Lab Interpretation (test code = Normal 64651-9) [facility] ([id number])2021-10-19 21:56:32 Test Item Value Reference Range Interpretation Comments NA (test code = 141 mmol/L 135-145 9174919482) K (test code = 4.7 mmol/L 3.5-5.0 9363476436) CL (test code = 107 mmol/L 98-108 2747986294) CO2 TOTAL (test code = 26 mmol/L 23-31 9708899762) AGAP (test code = 2-16 9423282103) BUN (test code = 17 mg/dL 7-23 4480791186) GLUCOSE (test code = 87 mg/dL 70-110 9884939854) CREATININE (test code = 0.68 mg/dL 0.50-1.04 7485390144) TOTAL BILI (test code = 0.6 mg/dL 0.1-1.4 8491880452) CALCIUM (test code = 9.8 mg/dL 8.6-10.6 8780854583) T PROTEIN (test code = 7.3 g/dL 6.3-8.2 6491437301) ALBUMIN (test code = 4.2 g/dL 3.5-5.0 1378316294) ALK PHOS (test code = 30 U/L 34-122 L 4407424906) ALTv (test code = 19 U/L 5-35 1742-6) AST(SGOT) (test code = 27 U/L 13-40 7087700323) eGFR (test code = mL/min/1.73m2 8689456608) BENTLEY (test code = BENTLEY) Association of [...] tests). Lab Interpretation Abnormal (test code = 19788-4) [facility] WITH [id number] 21:42:11 Test Item Value Reference Range Interpretation Comments WBC (test code = See_Comment [Automated 7639-2) message] The sy stem which generated this result transmitted reference range : 4.30 - 11.10 10*3/?L. The reference range was not used to interpret this result as normal/abnormal . RBC (test code = See_Comment [Automated 840-8) message] The sy stem which generated this [...] (test code = 51.3 fL 39.0-49.9 H 90008-2) RDW-CV (test code = 13.5 % 12.0-15.5 788-0) PLT (test code = See_Comment [Automated 777-3) message] The sy stem which generated this result transmitted reference range : 166 - 358 10*3/ ?L. The reference r lashonda was not used to interpret this result as normal/abnormal . MPV (test code = 10.1 fL 9.5-12.9 05808-9) NRBC/100 WBC (test See_Comment [Automat ed code = 1526537531) message] The system which generated this result transmitted reference range : 0.0 - 10.0 /100 WBCs. The refer ence range was not u sed to interpret th is result as normal/abnormal . NRBC x10^3 (test code <0.01 See_Comment [Auto mated = 8305871773) message] The s ystem which generated this result transmitted reference range : 10*3/?L. The reference range was not used to interpret this result as normal/abnormal . GRAN MAT (NEUT) % 64.1 % (test code = 770-8) IMM GRAN % (test code 0.30 % = 4996470504) LYMPH % (test code = 26.6 % 736-9) MONO % (test code = 7.0 % 5905-5) EOS % (test code = 0.8 % 713-8) BASO % (test code = 1.2 % 706-2) GRAN MAT x10^3(ANC) 4.65 10*3/uL 1.88-7.09 (test code = 2889158236) IMM GRAN x10^3 (test <0.03 0.00-0.06 code = 8332790595) LYMPH x10^3 (test code 1.93 10*3/uL 1.32-3.29 = 731-0) MONO x10^3 (test code 0.51 10*3/uL 0.33-0.92 = 742-7) EOS x10^3 (test code = 0.06 10*3/uL 0.03-0.39 711-2) BASO x10^3 (test code 0.09 10*3/uL 0.01-0.07 H = 704-7) Lab Interpretation Abnormal (test code = 32102-4) [facility]"
[2022-10-27] MEDS ORDERED: PANTOPRAZOLE 40 MG INJ ONE (00:04)
[2022-10-27] MEDS ORDERED: NA CHLORIDE 0.9% 500 ML ONE ×2 (00:33→06:26)
[2022-10-27 00:50] LABS: Absolute Lymphocytes (CBC) 0.9 K/uL (0.7-4.9); Hematocrit 41.2 % (36.0-45.0); Lymphocytes % 7.2 % (15.3-44.8); MCV 103.6 fL (80-100); MPV 8.2 fL (7.6-11.3); RBC Red Blood Cell Count 3.97 M/uL (3.86-4.86)
[2022-10-27 00:54] LABS: Protime INR 1.25
[2022-10-27 01:04] LABS: Albumin 3.6 g/dL (3.4-5.0); Bilirubin Direct 0.2 mg/dL (0-0.2); Bilirubin Total 0.6 mg/dL (0.2-1.0); Protein, Total 7.3 g/dL (6.4-8.2); Troponin High Sensitivity 10.3 pg/mL (<58.9)
[2022-10-27 01:05] LABS: Potassium 3.1 mmol/L (3.5-5.1)
[2022-10-27 01:40] LABS: SARS-COV-2 RT PCR POSITIVE (NEGATIVE)
[2022-10-27 02:20] LABS: Urine Bacteria >50 /HPF (<20); Urine Mucus 3+ /HPF (None Seen); Urine RBC >50 /HPF (None Seen); Urine WBC Clump Many /HPF (None Seen)
[2022-10-27 02:31] LABS: Urine Blood 2+ (Negative); Urine Glucose Negative (Negative); Urine Protein 1+ (Negative); Urine Specific Gravity >=1.030 (1.005-1.030); Urine pH 5.5 (5.0-7.0)
--- NOTE | 2022-10-27 02:39 | EDPHYS ---
Physician Documentation [facility] Name: Nilda Daigle Age: 82 yrs Sex: Female : 1940 Arrival Date: 10/26/2022 Time: 23:38 Bed 20 Private MD: ED Physician Tom Valencia HPI: 10/26 23:55 This 82 yrs old Female presents to ER via EMS with complaints of Vomiting. cp 23:55 The patient presents to the emergency department with vomiting, 1 times today, cp described as dark brown. Onset: The symptoms/episode began/occurred today. 23:55 Possible causes: unknown. cp 23:55 Associated signs and symptoms: Pertinent negatives: fever. Unable to obtain HPI due to cp baseline dementia, patient non-verbal. 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 - Social history:: Smoking status: unknown. ROS: 10/27 00:00 Constitutional: Negative for fever. cp 00:00 Abdomen/GI: Positive for vomiting, Negative for diarrhea, constipation. cp 00:00 Neuro: Negative for altered mental status. 00:00 Unable to obtain ROS due to baseline dementia. Exam: 00:05 Constitutional: The patient appears in no acute distress, alert, awake, cp non-diaphoretic, non-toxic, well developed, well nourished. 00:05 Head/Face: Normocephalic, atraumatic. cp 00:05 Eyes: Periorbital structures: appear normal, Conjunctiva: normal, no exudate, no injection, Sclera: no appreciated abnormality, Lids and lashes: appear normal, bilaterally. 00:05 ENT: External ear(s): are unremarkable, Nose: is normal, Mouth: Lips: moist, Oral mucosa: moist, Posterior pharynx: Airway: no evidence of obstruction, patent. 00:05 Chest/axilla: Inspection: normal. 00:05 Cardiovascular: Rate: tachycardic, Rhythm: regular, Edema: is not appreciated, JVD: is not appreciated. 00:05 Respiratory: the patient does not display signs of respiratory distress, Respirations: normal, no use of accessory muscles, no retractions, labored breathing, is not present, Breath sounds: are clear throughout, no decreased breath sounds, no stridor, no wheezing. 00:05 Abdomen/GI: Inspection: abdomen appears normal, Palpation: soft, in all quadrants, mild abdominal tenderness, in all quadrants, rebound tenderness, is not appreciated, involuntary guarding, is not appreciated. 00:05 Skin: cellulitis, is not appreciated, no rash present. 00:05 Neuro: Orientation: no acute changes, per EMS, Mentation: no acute changes, per EMS. 00:25 ECG was reviewed by the Attending Physician. cp Vital Signs: 10/26 23:51 BP 113 / 74; Pulse 117; Resp 20; Temp 97.3; Pulse Ox 100% ; Weight 68.04 kg; Height 62 vc1 in. (157.48 cm); 10/27 00:00 BP 112 / 71; Pulse 115; Resp 23; Pulse Ox 97% on 2 lpm NC; vc1 01:00 BP 99 / 63; Pulse 112; Resp 27; Pulse Ox 97% on 2 lpm NC; vc1 02:00 BP 107 / 63; Pulse 120; Resp 18; Temp 98.8(O); Pulse Ox 100% on R/A; Pain 0/10; pf1 03:00 BP 117 / 69; Pulse 119; Resp 23; Temp 99.1(O); Pulse Ox 97% on R/A; Pain 0/10; pf1 04:00 BP 108 / 73; Pulse 111; Resp 26; Pulse Ox 98% on R/A; Pain 0/10; pf1 05:00 BP 107 / 70; Pulse 118; Resp 24; Temp 98.7(A); Pulse Ox 99% on R/A; Pain 0/10; pf1 10/26 23:51 Body Mass Index 27.44 (68.04 kg, 157.48 cm) vc1 MDM: 10/26 23:46 Patient medically screened. cp 10/27 00:00 Differential diagnosis: gastritis, cholecystitis, viral gastroenteritis, cp gastroenteritis, GI bleed, sepsis, UTI. 02:45 Data reviewed: vital signs, nurses notes, lab test result(s), EKG, radiologic studies, cp CT scan, plain films. Test interpretation: by ED physician or midlevel provider: ECG, plain radiologic studies. Physician consultation: Myaco Valdivia MD was called at 02:42, regarding consult, patient's condition, after a discussion of the case, a recommendation for transfer for higher level of care is made, for GI services. 10/26 23:47 Order name: Basic Metabolic Panel; Complete Time: 01:29 cp 10/27 01:29 Interpretation: Normal except: K 3.1; GLUC 174; BUN 19; GFR 67. cp 10/26 23:47 Order name: CBC with Diff; Complete Time: 01:29 cp 10/27 01:29 Interpretation: Normal except: WBC 12.20; MCV 103.6; RDW 15.7; VINITA% 88.0; LYM% 7.2; cp NEUT A 10.7. 10/26 23:47 Order name: LFT's; Complete Time: 01:29 cp 10/26 23:47 Order name: Magnesium; Complete Time: 01:29 cp 10/26 23:47 Order name: NT PRO-BNP; Complete Time: 01:29 cp 10/26 23:47 Order name: PT-INR; Complete Time: 01:29 cp 10/26 23:47 Order name: Troponin HS; Complete Time: 01:29 cp 10/26 23:47 Order name: Ptt, Activated; Complete Time: 01:29 cp 10/26 23:51 Order name: COVID-19/FLU A+B; Complete Time: 02:16 cp 10/27 02:16 Interpretation: Abnormal: SARSCOV2 RT PCR POSITIVE. 10/26 23:51 Order name: Urine Microscopic Only; Complete Time: 02:26 cp 10/27 02:27 Order name: Urine Culture EDPR 10/27 02:29 Order name: Lactate w/ 2H reflex if indic.; Complete Time: 04:12 cp 10/27 02:29 Order name: Procalcitonin; Complete Time: 04:12 cp 10/27 02:29 Order name: Blood Culture Adult (2); Complete Time: 05:10 cp 10/26 23:47 Order name: XRAY Chest (1 view); Complete Time: 05:10 cp 10/26 23:47 Order name: EKG; Complete Time: 23:47 cp 10/26 23:47 Order name: Cardiac monitoring; Complete Time: 00:28 cp 10/26 23:47 Order name: EKG - Nurse/Tech; Complete Time: 00:28 cp 10/26 23:47 Order name: IV Saline Lock; Complete Time: 00:28 cp 10/26 23:47 Order name: Labs collected and sent; Complete Time: 00:28 cp 10/26 23:47 Order name: O2 Per Protocol; Complete Time: 00:28 cp 10/26 23:47 Order name: O2 Sat Monitoring; Complete Time: 00: cp 10/27 00:53 Order name: CT Abd/Pelvis - IV Contrast Only; Complete Time: 05:10 cp 10/27 02:31 Order name: Urine Dipstick-Ancillary; Complete Time: 02:33 EDMS 10/27 06:29 Order name: Lactate Sepsis 2 HR Follow-up; Complete Time: 05:10 EDMS 10/26 23:51 Order name: Urine Dipstick-Ancillary (obtain specimen); Complete Time: 02:30 cp EC:25 Rate is 115 beats/min. Rhythm is regular. LA interval is normal. QRS interval is cp normal. QT interval is normal. T waves are Inverted in lead III. Interpreted by me. Reviewed by me. Administered Medications: 00:26 Drug: ProTONIX (pantoprazole) 40 mg Route: IVP; Site: right wrist; pf1 01:20 Follow up: Response: No adverse reaction; Marked relief of symptoms pf1 00:35 Drug: NS 0.9% 500 ml Route: IV; Rate: 500 ml/hr; Site: left wrist; pf1 01:35 Follow up: IV Status: Completed infusion; IV Intake: 500ml pf1 03:10 Drug: Rocephin - (cefTRIAXone) 1 grams Route: IVPB; Infused Over: 30 mins; Site: left pf1 wrist; 03:40 Follow up: IV Status: Completed infusion; IV Intake: 50ml pf1 06:28 Drug: NS 0.9% 500 ml Route: IV; Rate: bolus; Site: left wrist; pf1 06:28 Drug: Lactated Ringers Solution 1000 ml Route: IV; Rate: 75 ml/hr; Site: left wrist; pf1 Disposition: 05:07 Co-signature as Attending Physician, Tom Valencia MD I agree with the assessment and rt plan of care. Given large hiatal hernia with possible outlet obstruction, I had a discussion with the daughter regarding transfer. After discussion, this hernia is already been evaluated and after discussions with the surgeon, the daughter wishes to have no further aggressive measures to be performed on this hernia as she was not likely to survive surgery. The patient's daughter is requesting to not be transferred at this time. We will treat for UTI and sepsis. We will forego any further aggressive surgical management of this hiatal hernia to include a nasogastric tube. We will treat nausea as it occurs. Patient to be admitted to the hospital service for further management of the sepsis.. Disposition Summary: 10/27/22 05:07 Hospitalization Ordered Hospitalization Status: Inpatient Admission(10/27/22 05:07) rt Provider: Traci Vang(10/27/22 05:07) rt Condition: Fair(10/27/22 05:07) rt Problem: new(10/27/22 05:07) rt Symptoms: have improved(10/27/22 05:07) rt Bed/Room Type: Standard(10/27/22 05:07) rt Location: Telemetry/MedSurg (Inpatient)(10/27/22 09:04) em1 Room Assignment: 402(10/27/22 09:04) em1 Diagnosis - UTI/ Urinary tract infection, site not specified(10/27/22 05:07) rt - Sepsis, unspecified organism(10/27/22 05:07) rt Forms: - Medication Reconciliation Form rt - SBAR form rt Signatures: Dispatcher [employer] EDMS Gerardo Hensley em1 Robert Chow, CECILY-C IRON BENDER-Cla1 Henry Saunders PA PA cp Garcia, Cindy, RN CAROLA cg Laura Jack RN RN vc1 Tom Valencia MD MD rt Xuan horton RN RN pf1 Corrections: (The following items were deleted from the chart) 02:42 02:39 Inpatient Admission cp cp 02:42 02:39 Traci Vang cp cp 02:42 02:39 Telemetry/MedSurg (Inpatient) cp cp 02:42 02:39 Stable cp cp 02:42 02:39 new cp cp 02:42 02:39 have improved cp cp 02:42 02:39 Standard cp cp 02:42 02:39 cp cp 02:42 02:39 SARS-associated coronavirus as the cause of diseases classified elsewhere cp cp 02:42 02:39 UTI/ Urinary tract infection, site not specified cp cp 02:42 02:39 Sepsis, unspecified organism cp cp 05:06 02:45 Doctor cp rt 05:06 02:45 [facility] cp rt 05:06 02:45 Higher level of care cp rt 05:06 02:45 Stable cp rt 05:06 02:45 new cp rt 05:06 02:45 have improved cp rt 05:06 02:45 Other specified abdominal hernia with obstruction, without gangrene cp rt 05:06 02:45 Sepsis, unspecified organism cp rt 05:06 02:45 Acute cystitis cp rt 05:06 02:45 Vomiting cp rt 05:16 05:07 Telemetry/MedSurg (Inpatient) rt cg 05:16 05:07 rt cg 09:04 05:16 [facility] [[email or web address]] ER HOLD cg em1 09:04 05:16 ERHOLD- cg em1
--- NOTE | 2022-10-27 02:39 | ER ---
Nurse's Notes [facility] Name: iNlda Daigle Age: 82 yrs Sex: Female : 1940 Arrival Date: 10/26/2022 Time: 23:38 Bed 20 Private MD: Diagnosis: UTI/ Urinary tract infection, site not specified;Sepsis, unspecified organism Presentation: 10/26 23:51 Chief complaint: EMS states: "We were called out because she vomited and it looked like vc1 brown bile.". Coronavirus screen: Vaccine status: vomiting. Unknown if more than one dose; has had first dose of Pfizer. Ebola Screen: No symptoms or risks identified at this time. Initial Sepsis Screen: Does the patient meet any 2 criteria? No. Patient's initial sepsis screen is negative. Does the patient have a suspected source of infection? No. Patient's initial sepsis screen is negative. Risk Assessment: Do you want to hurt yourself or someone else? Patient reports no desire to harm self or others. Onset of symptoms was October 26, 2022. 23:51 Method Of Arrival: EMS: [facility] vc1 23:51 Acuity: TATIANA 4 vc1 Triage Assessment: 23:58 General: Appears in no apparent distress. Behavior is pt is constricted and aphasic. vc1 Pain: Unable to use pain scale. Does not appear to understand pain scale. Aphasic. EENT: No deficits noted. Neuro: Level of Consciousness is awake, Oriented to unable to assess. Cardiovascular: Rhythm is sinus tachycardia. Respiratory: Airway is patent Respiratory effort is even, unlabored, Respiratory pattern is regular, symmetrical. GI: Reports [facility] reports vomiting brown bile. : No deficits noted. No signs and/or symptoms were reported regarding the genitourinary system. Derm: No deficits noted. No signs and/or symptoms reported regarding the dermatologic system. Musculoskeletal: No deficits noted. No signs and/or symptoms reported regarding the musculoskeletal system. 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 - Social history:: Smoking status: unknown. Screenin:57 [facility] ED Fall Risk Assessment (Adult) History of falling in the last 3 months, vc1 including since admission No falls in past 3 months (0 pts). Abuse screen: Denies threats or abuse. Nutritional screening: No deficits noted. Tuberculosis screening: No symptoms or risk factors identified. Assessment: 23:55 General: Appears in no apparent distress. comfortable, well groomed, well developed, pf1 Behavior is calm, cooperative, appropriate for age, quiet. 23:55 Pain: Unable to use pain scale. Patient has been diagnosed with aphasia. Neuro: Level pf1 of Consciousness is awake, alert, obeys commands, Oriented to Appropriate for age. Cardiovascular: Rhythm is sinus tachycardia. Respiratory: Airway is patent Respiratory effort is even, unlabored, Respiratory pattern is tachypnea. 23:55 Respiratory: Breath sounds are clear bilaterally. pf1 23:55 GI: Abdomen is round non-distended, Bowel sounds present X 4 quads. Abd is soft and non pf1 tender X 4 quads. 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 Daughter stated seen patient today around lunch and she had an intermittent cough. : No deficits noted. No signs and/or symptoms were reported regarding the genitourinary system. EENT: No deficits noted. No signs and/or symptoms were reported regarding the EENT system. Derm: No deficits noted. No signs and/or symptoms reported regarding the dermatologic system. Musculoskeletal: Parent/caregiver report the patient having weakness in Daughter stated patient has weakness to right arm and right leg. 23:55 Reassessment: Patient appears in no apparent distress at this time. pf1 10/27 00:00 Reassessment: See triage assessment. vc1 01:00 Reassessment: No changes from previously documented assessment. Patient and/or family vc1 updated on plan of care and expected duration. Pain level reassessed. 02:00 Reassessment: No changes from previously documented assessment. Patient and/or family vc1 updated on plan of care and expected duration. Pain level reassessed. 03:00 Reassessment: Patient appears in no apparent distress at this time. No changes from pf1 previously documented assessment. Patient and/or family updated on plan of care and expected duration. Pain level reassessed. Daughter at the BS. 04:00 Reassessment: Patient appears in no apparent distress at this time. No changes from pf1 previously documented assessment. Patient and/or family updated on plan of care and expected duration. Pain level reassessed. 05:00 Reassessment: Patient appears in no apparent distress at this time. No changes from pf1 previously documented assessment. Patient and/or family updated on plan of care and expected duration. Pain level reassessed. 08:15 Reassessment: Pt's family member at bedside, reports they have been here since 1130 and jl7 pt has not been changed all night. This nurse apologized and asked if they had requested for pt to be changed. Family member stated "No, but everyone knows she needs to be changed." This nurse apologized again and assisted primary nurse CAROLA Salinas with cleaning pt of incontinence, bedding changed, Pur Wick placed on pt and pt placed on right side. This nurse asked family member if she needed anything else and she stated "No.". Vital Signs: 10/26 23:51 BP 113 / 74; Pulse 117; Resp 20; Temp 97.3; Pulse Ox 100% ; Weight 68.04 kg; Height 62 vc1 in. (157.48 cm); 10/27 00:00 BP 112 / 71; Pulse 115; Resp 23; Pulse Ox 97% on 2 lpm NC; vc1 01:00 BP 99 / 63; Pulse 112; Resp 27; Pulse Ox 97% on 2 lpm NC; vc1 02:00 BP 107 / 63; Pulse 120; Resp 18; Temp 98.8(O); Pulse Ox 100% on R/A; Pain 0/10; pf1 03:00 BP 117 / 69; Pulse 119; Resp 23; Temp 99.1(O); Pulse Ox 97% on R/A; Pain 0/10; pf1 04:00 BP 108 / 73; Pulse 111; Resp 26; Pulse Ox 98% on R/A; Pain 0/10; pf1 05:00 BP 107 / 70; Pulse 118; Resp 24; Temp 98.7(A); Pulse Ox 99% on R/A; Pain 0/10; pf1 10/26 23:51 Body Mass Index 27.44 (68.04 kg, 157.48 cm) vc1 ED Course: 10/26 23:38 Patient arrived in ED. wm 23:39 Henry Saunders PA is PHCP. cp 23:44 Tom Valencia MD is Attending Physician. cp 23:55 Triage completed. vc1 23:57 Xuan horton, CAROLA is Primary Nurse. pf1 23:57 Arm band placed on left wrist. vc1 23:58 Patient has correct armband on for positive identification. Bed in low position. Call vc1 light in reach. Side rails up X2. Pulse ox on. NIBP on. 10/27 00:06 XRAY Chest (1 view) In Process Unspecified. EDMS 00:15 No provider procedures requiring assistance completed. Inserted saline lock: 22 gauge pf1 in left wrist, using aseptic technique. Blood collected. 00:26 COVID-19/FLU A+B Sent. pf1 00:27 Ptt, Activated Sent. pf1 00:28 Basic Metabolic Panel Sent. pf1 00:28 CBC with Diff Sent. pf1 00:28 LFT's Sent. pf1 00:28 Magnesium Sent. pf1 00:28 NT PRO-BNP Sent. pf1 00:28 PT-INR Sent. pf1 00:28 Troponin HS Sent. pf1 02:07 CT Abd/Pelvis - IV Contrast Only In Process Unspecified. EDMS 02:35 Traci Vang MD is Hospitalizing Provider. cp 03:10 Blood Culture Adult (2) Sent. pf1 03:10 Procalcitonin Sent. pf1 03:10 Lactate w/ 2H reflex if indic. Sent. pf1 03:10 Urine Culture Sent. pf1 05:07 Traci Vang MD is Hospitalizing Provider. rt 05:07 Patient admitted, IV remains in place. pf1 Administered Medications: 00:26 Drug: ProTONIX (pantoprazole) 40 mg Route: IVP; Site: right wrist; pf1 01:20 Follow up: Response: No adverse reaction; Marked relief of symptoms pf1 00:35 Drug: NS 0.9% 500 ml Route: IV; Rate: 500 ml/hr; Site: left wrist; pf1 01:35 Follow up: IV Status: Completed infusion; IV Intake: 500ml pf1 03:10 Drug: Rocephin - (cefTRIAXone) 1 grams Route: IVPB; Infused Over: 30 mins; Site: left pf1 wrist; 03:40 Follow up: IV Status: Completed infusion; IV Intake: 50ml pf1 06:28 Drug: NS 0.9% 500 ml Route: IV; Rate: bolus; Site: left wrist; pf1 06:28 Drug: Lactated Ringers Solution 1000 ml Route: IV; Rate: 75 ml/hr; Site: left wrist; pf1 Medication: 00:01 VIS not applicable for this client. vc1 Intake: 01:35 IV: 500ml; Total: 500ml. pf1 03:40 IV: 50ml; Total: 550ml. pf1 Outcome: 02:39 Decision to Hospitalize by Provider. cp 02:45 ER care complete, transfer ordered by MD. cp 05:07 Decision to Hospitalize by Provider. rt 05:07 Admitted to ER Hold. Please see [facility] for further documentation. pf1 05:07 Condition: stable pf1 05:07 Instructed on the need for admit, Demonstrated understanding of instructions, to daughter 10:46 Patient left the ED. ko1 Signatures: Dispatcher [employer] EDMS Henry Saunders PA PA cp Chadd Gonzalez RN RN jl7 Nicole Gold wm Laura Jack RN RN vc1 Rita Stapleton RN RN ko1 Tom Valencia MD MD rt Xuan horton RN RN pf1 Corrections: (The following items were deleted from the chart) 03:46 03:33 Respiratory: Breath sounds are clear bilaterally. pf1 pf1 03:48 03:33 GI: Abdomen is round non-distended, Bowel sounds present X 4 quads. Abd is soft pf1 and non tender X 4 quads. 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 Daughter stated seen patient today around lunch and she had an intermittent cough. pf1 03:48 03:33 : No deficits noted. No signs and/or symptoms were reported regarding the pf1 genitourinary system. pf1 :48 03:33 EENT: No deficits noted. No signs and/or symptoms were reported regarding the pf1 EENT system. pf1 :48 03:33 Derm: No deficits noted. No signs and/or symptoms reported regarding the pf1 dermatologic system. pf1 03:48 03:33 Musculoskeletal: Parent/caregiver report the patient having weakness in Daughter pf1 stated patient has weakness to right arm and right leg pf1
[2022-10-27] MEDS ORDERED: CEFTRIAXONE 1000 MG/VIAL ONE ×2 (02:42→08:22)
[2022-10-27] MEDS ORDERED: NA CHLORIDE 0.9% 50 ML IV ONE (02:43)
--- NOTE | 2022-10-27 05:24 | P.HP ---
Certification for Inpatient Patient admitted to: Inpatient With expected LOS: >2 Midnights Patient will require the following post-hospital care: None Practitioner: I am a practitioner with admitting privileges, knowledge of patient current condition, hospital course, and medical plan of care. Services: Services provided to patient in accordance with Admission requirements found in Title 42 Section 412.3 of the Code of Federal Regulations <Robert Chow - Last Filed: 10/27/22 05:17> Patient History Date of Service: 10/27/22 Reason for admission: UTI, severe sepsis History of Present Illness: 82-year-old female with history of Alzheimer's, frontotemporal dementia who is a resident of [facility] and, nonverbal, oriented x0 presents to the emergency department for reported episode of vomiting. She was evaluated in the emergency department her labs were significant for leukocytosis 11 cell count 12.2 potassium 3.1 glucose 174 lactic acid 3.3 urinalysis with trace leuk esterase urine microscopic with greater than 50 white blood cell greater than 50 red blood cells greater than 50 bacteria. SIRS criteria present including tachycardia, tachypnea, leukocytosis source of infection present with UTI. CT was performed which revealed redemonstration of large ventral hernia with paraesophageal component with distended fundus and body of the stomach as well as antropyloric portion herniated within the hernia. Possibility of the gastric outlet obstruction from herniated lower portion of the stomach in the chest cavity could be of consideration. Case was discussed with general surgery by ED provider who initially recommended transfer for GI/CT surgery evaluation. This was discussed with the daughter by ED staff as well as myself who informed us that this patient has been evaluated by multiple surgeons for this ventral hernia in the past and she was not a candidate for surgery at that time, daughter does not wish for any kind of surgical intervention or even NG tube placement, she prefers we treat the UTI with IV antibiotics and otherwise keep patient as comfortable as possible. She understands we do not have GI or CT surgery available to further assess or intervene with large ventral hernia/possible gastric outlet obstruction. We will plan for admission to the hospital for UTI, severe sepsis. - Past Medical/Surgical History Diabetic: No -: rheumatoid arthritis -: knee pain -: yvnggfy-iwfulp-nyfatsto dementia since 10 years ago -: hypothyroidism -: breast cancer -: macy knee replacement -: appendectomy -: hysterectomy Psychosocial/ Personal History: Patient is a resident of [facility] and, primarily bedbound, oriented x1. - Family History Mother -: Lung disease Notes: malignant pleural effusion Father -: Liver disease Notes: cirrhosis - Social History Alcohol use: No CD- Drugs: No Caffeine use: Yes [facility] <ClaudineRobert Diop - Last Filed: 10/27/22 05:17> Date of Service: 10/27/22 <Traci Vang - Last Filed: 10/27/22 23:35> Allergies ciprofloxacin [From Cipro] Allergy (Verified 10/26/20 06:40) Hives ciprofloxacin HCl [From Cipro] Allergy (Verified 10/26/20 06:40) Hives Home Medications: Clotrim/Betameth Cream [Lotrisone Cream*] 1 jordan TOP Q12HR PRN 08/22/21 Levothyroxine Sodium [Levothyroxine] 1 tab PO [id number] 08/22/21 Metoprolol Succinate 2 tab PO DAILY 08/22/21 Mirabegron [Myrbetriq] 1 tab PO DAILY 08/22/21 Nystatin [Nystop] 100,000 pwd Q12HP PRN 08/22/21 Quetiapine Fumarate [Seroquel] 1 tab PO TID 08/22/21 Apixaban [Eliquis] 5 mg PO BID #60 tablet 08/23/21 Docusate Sodium [Stool Softener] 100 mg PO BEDTIME 10/27/22 Loratadine [Claritin*] 10 mg PO DAILY PRN 10/27/22 hydroCHLOROthiazide [Hydrochlorothiazide] 25 mg PO DAILY 10/27/22 Review of Systems is unable to be obtained <Robert Chow - Last Filed: 10/27/22 05:17> Physical Examination - Physical Exam General: Alert, In no apparent distress, Demented HEENT: Atraumatic, PERRLA, Mucous membr. moist/pink, EOMI, Sclerae nonicteric Neck: Supple, 2+ carotid pulse no bruit, No LAD, Without JVD or thyroid abnormality Respiratory: Clear to auscultation bilaterally, Normal air movement Cardiovascular: Regular rate/rhythm, Normal S1 S2 Capillary refill: <2 Seconds Gastrointestinal: No tenderness, Masses (Large ventral hernia, soft) Musculoskeletal: No tenderness Integumentary: No rashes Neurological: Abnormal speech (Nonverbal.), Abnormal tone (Right-sided upper and lower extremity weakness. At baseline) - Studies Laboratory Data (last 24 hrs) 10/27/22 00:15: PT 13.8 H, INR 1.25, APTT 33.0 10/27/22 00:15: WBC 12.20 H, Hgb 13.8, Hct 41.2, Plt Count 395 10/27/22 00:15: Sodium 140, Potassium 3.1 L, BUN 19 H, Creatinine 0.86, Glucose 174 H, Magnesium 2.0, Total Bilirubin 0.6, AST 33, ALT 39, Alkaline Phosphatase 31 L <Robert Chow - Last Filed: 10/27/22 05:17> - Studies Laboratory Data (last 24 hrs) 10/27/22 00:15: PT 13.8 H, INR 1.25, APTT 33.0 10/27/22 00:15: WBC 12.20 H, Hgb 13.8, Hct 41.2, Plt Count 395 10/27/22 00:15: Sodium 140, Potassium 3.1 L, BUN 19 H, Creatinine 0.86, Glucose 174 H, Magnesium 2.0, Total Bilirubin 0.6, AST 33, ALT 39, Alkaline Phosphatase 31 L <Traci Vang - Last Filed: 10/27/22 23:35> Assessment and Plan - Plan Assessment: Severe sepsis secondary to UTI Large ventral hernia with possible gastric outlet obstruction Alzheimer's/frontotemporal dementia-nonverbal Plan: Severe sepsis secondary to UTI: SIRS criteria present including leukocytosis, tachycardia, tachypnea urine/blood cultures obtained, initial lactate 3.3, repeat pending. Continue IV fluids, antibiotics with Rocephin. Patient's daughter POA does not wish for any invasive/aggressive measures. Large ventral hernia with possible gastric outlet obstruction: Patient's daughter does not wish for her to receive any kind of invasive or aggressive treatments including surgeries, nasogastric tube insertions. She reports this large ventral hernia has been evaluated multiple times and even many years ago she is not a candidate for surgery. Continue with conservative measures including as needed antiemetics, pain medications. At this time patient's abdomen is soft, not significantly distended. No vomiting during her stay in the emergency department. Patient is DNR, daughter would consider hospice. Alzheimer's/frontotemporal dementia-nonverbal: At baseline. DVT PPX: SCD Code status: Full Discharge Plan: [facility] Plan to discharge in: 72 Hours - Advance Directives Does patient have a Living Will: Yes Does patient have a Durable POA for Healthcare: Yes - Code Status/Comfort Care Code Status Assessed: Yes (DNR) Critical Care: No Time Spent Managing Pts Care (In Minutes): 70 <Robert Chow - Last Filed: 10/27/22 05:17> Date of Service: 10/27/22 SUBJECTIVE: HPI MENTIONED ABOVE OBJECTIVE: VITAL SIGNS: REVIEWED GENERAL: DEMENTED HEENT:WNL CV: WNL LUNGS: WNL ABD: EPIGASTRIC TENDERNESS/DISTENTION EXT: WNL ASSESSMENT: 1. CONCERN FOR GASTRIC OUTLET OBSTRUCTION 2. LARGE HIATAL HERNIA 3. ADVANCED ALZHEIMER'S DEMENTIA 4. RA 5. PE 6. HISTORY OF BREAST CANCER PLAN: 1. CONTINUE WITH PPI 2. NPO 3. REPEAT ABD FILMS 4. UNFORTUNATELY WE DO NOT HAVE GI AND IF PT TRULY WITH GASTRIC OUTLET OBSTRUCTION DEFINITIVE TREATMENT WITH ENDOSCOPIC DILATATION WOULD BE REQUIRED AND SINCE WE CAN NOT DO THAT HERE PATIENT WILL NEED TO GET TRANSFERRED. FAMILY WILL NEED TO PROCEED WITH HOSPICE CARE IF THEY DO NOT WANT TRANSFER TO FACILITY WITH GI WE WILL BE UNABLE TO CURE HIS CURRENT MEDICAL ILLNESS. <Traci Vang - Last Filed: 10/27/22 23:35>
[2022-10-27] MEDS ORDERED: ACETAMINOPHEN 500 MG TAB PO PRN (05:34)
[2022-10-27] MEDS ORDERED: ONDANSETRON 4 MG/2 ML VIAL IV PRN (05:34)
[2022-10-27] MEDS ORDERED: Ringers Lactate 1,000 ML IV ONE (06:27)
[2022-10-27 06:40] VITALS: BMI 27.4
[2022-10-27] MEDS: CEFTRIAXONE 1,000 MG in NA CHLORIDE 0.9% 50 ML IVPB SCH (08:59)
--- NOTE | 2022-10-27 13:21 | RAD REPORT ---
EXAM DESCRIPTION: Chest Single View 10/27/2022 12:16 AM FISHER SPONGE HOOKING CLINICAL HISTORY: 82 years, Female, SOB COMPARISON: 10/26/2020 FINDINGS: Single view of the chest was obtained portable. Prior films were compared. The lung volume is decreased. The heart is nonenlarged. Double shadow density retrocardiac region correspond to larg e hiatal hernia. The thoracic aorta demonstrate to be tortuous with intimal calcification. The pulmon marc vasculature is normal distribution. No pleural effusions. The rest of the soft tissue and bony structures demonstrate to be unremarkable. IMPRESSION: Low lung volume. Large hiatal hernia. No focal areas of acute airspace disease. Electronically signed by: Jamie Mejia MD 10/27/2022 12:17 AM [employer] SPONGE HOOKING Due to temporary technical issues with the PACS/Fluency reporting system, reports are being signed by the in house radiologists without review as a courtesy to insure prompt reporting. The interpreting radiologist is fully responsible for the content of the report.
--- NOTE | 2022-10-27 14:46 | RAD REPORT ---
EXAM DESCRIPTION: Abdomen Pelvis W Contrast 10/27/2022 2:17 AM FINANCIAL CENTER MANAGER CLINICAL HISTORY: 82 years, Female, vomiting COMPARISON: 10/26/2020 TECHNIQUE: Contrast-enhanced images of the abdomen and pelvis were performed utilizing 5 mm slice th ickness at 5 mm interval reconstruction from the lung bases to the ischial tuberosities after the adm inistration of IV contrast. In addition multiplanar reformats in the coronal and sagittal plane were obtained and reviewed. This exam was performed according to our departmental dose-optimization protocol, which includes auto mated exposure control, adjustment of the mA and/or kV according to patient size and/or use of iterat cary reconstruction technique. FINDINGS: Several images are comprised by breathing motion artifact The lung bases compressive atelectatic changes. Again identified is the presence of a large hiatal he rnia with paraesophageal component with distended fundus and body of the stomach and as well as antro pyloric portion herniated within the hernia. Possibility of the gastric outlet obstruction from herni ated lower portion of the stomach in the chest cavity could be of consideration, best demonstrated on axial image 1-27. There is small bowel and large bowel demonstrate to be unremarkable. The liver demonstrates slight decreased attenuation corresponding to mild fatty infiltration. Otherwi se the liver, gallbladder, pancreas, spleen and adrenal glands demonstrate to be unremarkable, no foc al lesions are noted. There are calcified granulomas within the spleen. The kidneys demonstrate normal uptake of contrast media. No evidence for nephrolithiasis and/or hydro nephrosis. Findings just the simple parapelvic renal cysts. No follow-up is recommended The urinary bladder demonstrate to be unremarkable. The uterus is absent. There are no adnexal mass es. The aorta demonstrate minimal atherosclerotic disease. There is no retroperitoneal lymphadeno miki. There is no evidence for ascites/or significant abnormal fluid collections. The rest of the so ft tissue and bony structures are within normal limits. IMPRESSION: Large hiatal hernia with paraesophageal component with distended fundus and body of the stomach and as well as antropyloric portion herniated within the hernia. Possibility of the gastric o utlet obstruction from herniated lower portion of the stomach in the chest cavity could be of conside ration. Electronically signed by: Jamie Mejia MD 10/27/2022 2:23 AM FINANCIAL CENTER MANAGER Due to temporary technical issues with the PACS/Fluency reporting system, reports are being signed by the in house radiologists without review as a courtesy to insure prompt reporting. The interpreting radiologist is fully responsible for the content of the report.
[2022-10-27] MEDS ORDERED: LORATADINE 10 MG TAB PO PRN (23:21)
[2022-10-27] MEDS ORDERED: CLOTRIMAZ/BETAMETH CREAM 15GM TOP PRN (23:29)
[2022-10-27] MEDS ORDERED: SODIUM CHLORIDE 0.9% 10ML INJ IV PRN (23:37)
[2022-10-27] MEDS ORDERED: PANTOPRAZOLE 40 MG INJ IVP ONE (23:37)
[2022-10-27] MEDS ORDERED: DIGOXIN 0.25 MG/ML AMP IV SCH (23:45)
[2022-10-28] MEDS: NA CHLORIDE 0.9% 1,000 ML IV SCH ×2 (01:36→19:45)
[2022-10-28] MEDS: METRONIDAZOLE 500mg IVPB 500 MG/100 ML BAG IV SCH ×3 (01:37→17:19)
--- NOTE | 2022-10-28 01:45 | P.PN ---
Subjective Date of Service: 10/28/22 Chief Complaint: UTI, severe sepsis Subjective: No new changes Nursing staff report patient has not had any vomiting. Daughter resting at bedside. Review of Systems is unable to be obtained Physical Examination - Vital Signs Temperature: 97.1 F Blood Pressure: 110/65 Pulse: 110 Respirations: 18 Pulse Ox (%): 93 - Physical Exam General: Demented, Confused HEENT: Atraumatic, PERRLA, EOMI Neck: Supple, JVD not distended Respiratory: Clear to auscultation bilaterally, Normal air movement Cardiovascular: No edema, Regular rate/rhythm, Normal S1 S2 Capillary refill: <2 Seconds Gastrointestinal: Normal bowel sounds, Masses (Large ventral hernia, abd soft.) Musculoskeletal: No tenderness Integumentary: No rashes Neurological: Normal tone (RUE contracture.), Normal affect - Studies Medications List Reviewed: Yes Assessment And Plan - Plan Assessment: Severe sepsis secondary to UTI Large ventral hernia with possible gastric outlet obstruction Alzheimer's/frontotemporal dementia-nonverbal Plan: Severe sepsis secondary to UTI: SIRS criteria present including leukocytosis, tachycardia, tachypnea urine/blood cultures obtained, initial lactate 3.3 trended down. Continue IV fluids, antibiotics with Rocephin. Patient's daug hter POA does not wish for any invasive/aggressive measures. Cultures pending. Large ventral hernia with possible gastric outlet obstruction: Patient without any further episodes of vomiting. Abd still soft. Daughter does not wish for any aggressive measures including NGT or any surgical intervention. Alzheimer's/frontotemporal dementia-nonverbal: At baseline. DVT PPX: SCD Code status: Full Discharge Plan: [facility] Plan to discharge in: 48 Hours - Code Status/Comfort Care Code Status Assessed: Yes (DNR) Critical Care: No Time Spent Managing PTS Care (In Minutes): 25
[2022-10-28 03:42] LABS: Hematocrit 29.9 % (36.0-45.0); Lymphocytes % 9.7 % (15.3-44.8); MCV 104.6 fL (80-100); MPV 8.1 fL (7.6-11.3); RBC Red Blood Cell Count 2.86 M/uL (3.86-4.86)
[2022-10-28 04:19] LABS: Magnesium 1.8 mg/dL (1.6-2.4); Thyroid Stimulating Hormone 0.687 uIU/mL (0.358-3.740)
[2022-10-28 04:20] LABS: Albumin 2.8 g/dL (3.4-5.0); Bilirubin Total 0.9 mg/dL (0.2-1.0); Protein, Total 5.5 g/dL (6.4-8.2)
[2022-10-28 04:23] LABS: Potassium 2.9 mmol/L (3.5-5.1)
[2022-10-28] MEDS: LEVOTHYROXINE SOD 0.088 MG TAB PO SCH (05:45)
[2022-10-28] MEDS: KCL 20 MEQ/100 mL IVPB 20 MEQ/100 ML BAG IV SCH ×3 (05:46→10:45)
[2022-10-28 08:48] LABS: Folic Acid, (Folate) 3.3 ng/mL (3.1-17.5)
[2022-10-28] MEDS ORDERED: METOPROLOL XL 25 MG TAB PO SCH (09:00)
[2022-10-28] MEDS ORDERED: hydroCHLOROthiazide 25 MG TAB PO SCH (09:00)
[2022-10-28] MEDS ORDERED: DIGOXIN 0.25 MG/ML AMP IV SCH (09:00)
[2022-10-28] MEDS: CEFTRIAXONE 1,000 MG in NA CHLORIDE 0.9% 50 ML IVPB SCH (09:01)
[2022-10-28] MEDS: QUETIAPINE 25 MG TAB PO SCH ×3 (09:04→20:40)
[2022-10-28] MEDS: PANTOPRAZOLE 40 MG INJ IVP SCH ×2 (09:04→20:40)
[2022-10-28] MEDS: APIXABAN 5 MG TABLET PO SCH ×2 (09:04→20:40)
--- NOTE | 2022-10-28 09:19 | RAD REPORT ---
EXAM DESCRIPTION: RAD - Chest Single View - 10/28/2022 6:54 am CLINICAL HISTORY: pneumonia Chest pain. COMPARISON: Chest Single View dated 10/26/2022; Chest Single View dated 05/01/2022; Chest Single View dated 09/04/2021; Chest Single View dated 08/26/2021 FINDINGS: Portable technique limits examination quality. The lungs are grossly clear. The heart is normal in size. Large hiatal hernia present. IMPRESSION: No acute intrathoracic process suspected. Large hiatal hernia.
--- NOTE | 2022-10-28 09:20 | RAD REPORT ---
EXAM DESCRIPTION: RAD - Abdomen 1 View (KUB) - 10/28/2022 6:55 am CLINICAL HISTORY: obstruction Pain COMPARISON: Abdomen Pelvis W Contrast dated 10/27/2022 FINDINGS: The bowel gas pattern is non-obstructive. No evidence of free air or pneumatosis. Signific ant hiatal hernia. Prominent scoliosis. IMPRESSION: Nonobstructive bowel-gas pattern.
--- NOTE | 2022-10-28 13:43 | EKG ---
Test Date: 2022-10-27 Test Time: 00:18:32 Radiology Manager: AYLIN MEASUREMENT RESULTS: Intervals: Rate: 115 AL: 196 QRSD: 76 QT: 326 QTc: 450 [place]: P: -7 AL: 196 QRS: 34 T: -9 INTERPRETIVE STATEMENTS: Sinus tachycardia ST & T wave abnormality, consider inferolateral ischemia Abnormal ECG Compared to ECG 05/01/2022 14:03:39 ST (T wave) deviation now present Possible ischemia now present Sinus rhythm no longer present Atrial premature complex(es) no longer present Fusion complex(es) no longer present Myocardial infarct finding no longer present Electronically Signed On 10-28-22 13:39:22 LOG PROCESSOR OPERATOR by Emigdio Richards
[2022-10-28] MEDS: FOLIC ACID 1 MG in NA CHLORIDE 0.9% 50 ML IV SCH (14:29)
[2022-10-28] MEDS ORDERED: CYANOCOBALAMIN 1000MCG/ML INJ IM ONE (15:00)
[2022-10-28] MEDS: DOCUSATE NA 100 MG CAP PO SCH (20:39)
[2022-10-28] MEDS: METOPROLOL XL 25 MG TAB PO SCH (20:40)
[2022-10-29] MEDS: METRONIDAZOLE 500mg IVPB 500 MG/100 ML BAG IV SCH ×3 (00:23→16:23)
[2022-10-29] MEDS: LEVOTHYROXINE SOD 0.088 MG TAB PO SCH (05:34)
[2022-10-29 05:59] LABS: Absolute Lymphocytes (CBC) 1.3 K/uL (0.7-4.9); Hematocrit 26.6 % (36.0-45.0); Lymphocytes % 21.3 % (15.3-44.8); MCV 105.5 fL (80-100); MPV 7.7 fL (7.6-11.3); RBC Red Blood Cell Count 2.52 M/uL (3.86-4.86)
[2022-10-29 06:17] LABS: Albumin 2.6 g/dL (3.4-5.0); Bilirubin Total 0.8 mg/dL (0.2-1.0); Magnesium 1.8 mg/dL (1.6-2.4); Potassium 3.9 mmol/L (3.5-5.1); Protein, Total 5.5 g/dL (6.4-8.2)
[2022-10-29] MEDS: NA CHLORIDE 0.9% 1,000 ML IV SCH ×3 (06:18→21:10)
[2022-10-29 06:59] LABS: Blood Morphology Comment NOTED (NOT SEEN); Macrocytosis 1+; Platelet Estimate ADEQ; White Blood Cell Scan OK (OK)
[2022-10-29] MEDS ORDERED: NA CHLORIDE 0.9% 50 ML IV ONE (08:34)
[2022-10-29] MEDS ORDERED: CEFTRIAXONE 1000 MG/VIAL ONE (08:34)
[2022-10-29] MEDS: APIXABAN 5 MG TABLET PO SCH ×2 (09:00→21:10)
[2022-10-29] MEDS: PANTOPRAZOLE 40 MG INJ IVP SCH ×2 (09:00→21:10)
[2022-10-29] MEDS: FOLIC ACID 1 MG in NA CHLORIDE 0.9% 50 ML IV SCH (09:00)
[2022-10-29] MEDS: CEFTRIAXONE 1,000 MG in NA CHLORIDE 0.9% 50 ML IVPB SCH (09:00)
[2022-10-29] MEDS: QUETIAPINE 25 MG TAB PO SCH ×3 (09:00→21:10)
[2022-10-29] MEDS: METOPROLOL XL 25 MG TAB PO SCH ×2 (09:00→21:10)
[2022-10-29] MEDS ORDERED: POTASSIUM 25 MEQ EFFERV TAB PO ONE (09:00)
--- NOTE | 2022-10-29 10:43 | P.PN ---
Subjective Date of Service: 10/28/22 Subjective: No new changes, No C/O voiced, Improving Review of Systems 10-point ROS is otherwise unremarkable Physical Examination - Vital Signs Temperature: 97.7 F Blood Pressure: 115/53 Pulse: 97 Respirations: 19 Pulse Ox (%): 92 - Physical Exam General: Alert, In no apparent distress, Demented Respiratory: Clear to auscultation bilaterally, Normal air movement Cardiovascular: Regular rate/rhythm, Normal S1 S2 Gastrointestinal: Normal bowel sounds, Soft and benign, Non-distended, No tenderness Neurological: Sensation intact, Cranial nerves 3-12 intact, Abnormal speech, Abnormal strength - Studies Medications List Reviewed: Yes Assessment & Plan - Problems (Diagnosis) (1) Intractable nausea and vomiting Current Visit: Yes Status: Acute (2) UTI (urinary tract infection) Current Visit: No Status: Acute (3) Dementia Current Visit: No Status: Chronic (4) Global aphasia Current Visit: No Status: Chronic (5) Hiatus hernia syndrome Current Visit: No Status: Chronic - Plan And: 1. Continue with antiemetics 2. IV fluids 3. With antibiotic therapy 4. Discussed with family regarding hospice care 5. Monitor renal function 6. GI DVT prophylaxis Discharge Plan: Home Plan to discharge in: Greater than 2 days - Advance Directives Does patient have a Living Will: Yes Does patient have a Durable POA for Healthcare: Yes - Code Status/Comfort Care Code Status Assessed: Yes Code Status: Do Not Attempt Resuscitat Critical Care: No Time Spent Managing PTS Care (In Minutes): 35
[2022-10-29] MEDS ORDERED: NA CHLORIDE 0.9% 500 ML IV ONE (11:22)
[2022-10-29] MEDS: FOLIC ACID 1 MG TABLET PO SCH (12:00)
--- NOTE | 2022-10-29 14:41 | P.PN ---
Date of Service: 10/29/22 Subjective Subjective: Patient with no new changes; poor intake. Her prognosis is poor. She has severe dementia and we will arrange for hospice care. Review of Systems 10-point ROS is otherwise unremarkable Physical Examination - Vital Signs Reviewed - Physical Exam General: Alert, aphasic demented Respiratory: Clear to auscultation bilaterally, Normal air movement Cardiovascular: Regular rate/rhythm, Normal S1 S2 Gastrointestinal: Normal bowel sounds, Soft and benign, Non-distended, No tenderness Neurological: Sensation intact, CN III-XII intact, Abnormal speech, Abnormal strength - Studies Medications List Reviewed: Yes Assessment & Plan - Problems (Diagnosis) (1) Intractable nausea and vomiting Current Visit: Yes Status: Acute (2) UTI (urinary tract infection) Current Visit: No Status: Acute (3) Dementia Current Visit: No Status: Chronic (4) Fronto-temporal dementia with global aphasia Current Visit: No Status: Chronic (5) Hiatus hernia syndrome Current Visit: No Status: Chronic - Plan Continue with plan of care as mentioned below: 1. Plan to advance diet as tolerated-we will need to give her a soft diet. 2. Continue with IV fluids; but plan to Hep-Lock IV in AM 3. Continue with antibiotic therapy 4. Discussed with family regarding hospice care; will arrange prior to DC 5. Monitor renal function 6. GI DVT prophylaxis
[2022-10-29] MEDS: DOCUSATE NA 100 MG CAP PO SCH (21:10)
[2022-10-30] MEDS: METRONIDAZOLE 500mg IVPB 500 MG/100 ML BAG IV SCH ×2 (00:44→09:24)
[2022-10-30 03:01] LABS: Absolute Lymphocytes (CBC) 1.2 K/uL (0.7-4.9); Lymphocytes % 26.7 % (15.3-44.8); MPV 7.7 fL (7.6-11.3); RBC Red Blood Cell Count 2.64 M/uL (3.86-4.86)
[2022-10-30 05:24] LABS: Albumin 2.5 g/dL (3.4-5.0); Bilirubin Total 0.5 mg/dL (0.2-1.0); Potassium 3.8 mmol/L (3.5-5.1); Protein, Total 5.4 g/dL (6.4-8.2)
[2022-10-30] MEDS: LEVOTHYROXINE SOD 0.088 MG TAB PO SCH (06:12)
[2022-10-30] MEDS: CEFTRIAXONE 1,000 MG in NA CHLORIDE 0.9% 50 ML IVPB SCH (09:24)
[2022-10-30] MEDS: PANTOPRAZOLE 40 MG INJ IVP SCH ×2 (09:24→20:48)
[2022-10-30] MEDS: NA CHLORIDE 0.9% 1,000 ML IV SCH ×2 (09:25→17:22)
[2022-10-30] MEDS: APIXABAN 5 MG TABLET PO SCH ×2 (09:25→20:48)
[2022-10-30] MEDS: QUETIAPINE 25 MG TAB PO SCH ×3 (09:25→20:48)
[2022-10-30] MEDS: FOLIC ACID 1 MG TABLET PO SCH (09:25)
[2022-10-30] MEDS: METOPROLOL XL 25 MG TAB PO SCH ×2 (09:25→20:48)
--- NOTE | 2022-10-30 17:53 | EKG ---
Test Date: 2022-10-27 Test Time: 00:17:52 Chipper Feeder: AYLIN MEASUREMENT RESULTS: Intervals: Rate: 115 AL: 186 QRSD: 76 QT: 352 QTc: 486 [place]: P: -16 AL: 186 QRS: 33 T: -14 INTERPRETIVE STATEMENTS: Sinus tachycardia with occasional premature ventricular complexes ST & T wave abnormality, consider inferolateral ischemia Abnormal ECG Compared to ECG 05/01/2022 14:03:39 Ventricular premature complex(es) now present ST (T wave) deviation now present Possible ischemia now present Sinus rhythm no longer present Atrial premature complex(es) no longer present Fusion complex(es) no longer present Myocardial infarct finding no longer present Electronically Signed On 10-30-22 17:46:50 PAPER BUNDLER by Emigdio Richards
[2022-10-30] MEDS: AMOX/K CLAV 875 MG TAB PO SCH (20:47)
[2022-10-30] MEDS: DOCUSATE NA 100 MG CAP PO SCH (20:48)
--- NOTE | 2022-10-30 21:53 | P.PN ---
Date of Service: 10/30/22 Subjective Subjective: Patient with no new changes; poor intake. Her prognosis is poor. She has severe dementia and we will arrange for hospice care. Family wanted to get a Ewing catheter placed. However, she does not really have a criteria for a Ewing catheter and the risk of infections are much higher with Ewing catheter placement. Patient does not have any urinary retention. Difficult to assess postvoid residual because she really cannot indicate to us when she has urinated. Spoke to hospice company as well. They were under the impression patient had Ewing catheter the whole admission. Review of Systems 10-point ROS is otherwise unremarkable Physical Examination - Vital Signs Reviewed - Physical Exam General: Alert, aphasic demented Respiratory: Clear to auscultation bilaterally, Normal air movement Cardiovascular: Regular rate/rhythm, Normal S1 S2 Gastrointestinal: Normal bowel sounds, Soft and benign, Non-distended, No tenderness Neurological: Sensation intact, CN III-XII intact, Abnormal speech, Abnormal strength - Studies Medications List Reviewed: Yes Assessment & Plan - Problems (Diagnosis) (1) Intractable nausea and vomiting Current Visit: Yes Status: Acute (2) UTI (urinary tract infection) Current Visit: No Status: Acute (3) Dementia Current Visit: No Status: Chronic (4) Fronto-temporal dementia with global aphasia Current Visit: No Status: Chronic (5) Hiatus hernia syndrome Current Visit: No Status: Chronic - Plan Continue with plan of care as mentioned below: 1. Plan to advance diet as tolerated-we will need to give her a soft diet. 2. Hep-Lock IV 3. Continue with antibiotic therapy 4. Arranged for hospice care; 5. GI DVT prophylaxis
[2022-10-30 23:13] VITALS: O2SAT 93
[2022-10-31] MEDS: LEVOTHYROXINE SOD 0.088 MG TAB PO SCH (05:15)
--- NOTE | 2022-10-31 05:27 | P.DS ---
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 She was evaluated in the emergency department her labs were significant for leukocytosis 11 cell count 12.2 potassium 3.1 glucose 174 lactic acid 3.3 urinalysis with trace leuk esterase urine microscopic with greater than 50 white blood cell greater than 50 red blood cells greater than 50 bacteria. SIRS criteria present including tachycardia, tachypnea, leukocytosis source of infection present with UTI. CT was performed which revealed redemonstration of large ventral hernia with paraesophageal component with distended fundus and body of the stomach as well as antropyloric portion herniated within the hernia. Possibility of the gastric outlet obstruction from herniated lower portion of the stomach in the chest cavity could be of consideration. Case was discussed with general surgery by ED provider who initially recommended transfer for GI/CT surgery evaluation. This was discussed with the daughter by ED staff as well as myself who informed us that this patient has been evaluated by multiple surgeons for this ventral hernia in the past and she was not a candidate for surgery at that time, daughter does not wish for any kind of surgical intervention or even NG tube placement, she prefers we treat the UTI with IV antibiotics and otherwise keep patient as comfortable as possible. She understands we do not have GI or CT surgery available to further assess or intervene with large ventral hernia/possible gastric outlet obstruction. We will plan for admission to the hospital for UTI, severe sepsis. Vital Signs/Physical Exam: Temp Pulse Resp BP Pulse Ox 98.1 F 67 16 118/59 L 92 10/31/22 04:00 10/31/22 04:00 10/31/22 04:00 10/31/22 04:00 10/31/22 04:00 Laboratory Data at Discharge: WBC 4.40 K/uL (4.3-10.9) 10/30/22 02:35 Hgb 9.7 g/dL (12.0-15.0) L 10/30/22 02:35 Hct 28.0 % (36.0-45.0) L 10/30/22 02:35 Plt Count 241 K/uL (152-406) 10/30/22 02:35 PT 13.8 SECONDS (9.5-12.5) H 10/27/22 00:15 INR 1.25 10/27/22 00:15 APTT 33.0 SECONDS (24.3-36.9) 10/27/22 00:15 Sodium 144 mmol/L (136-145) 10/30/22 02:35 Potassium 3.8 mmol/L (3.5-5.1) 10/30/22 02:35 BUN 10 mg/dL (7-18) 10/30/22 02:35 Creatinine 0.51 mg/dL (0.55-1.02) L 10/30/22 02:35 Glucose 113 mg/dL (74-106) H 10/30/22 02:35 Magnesium 1.8 mg/dL (1.6-2.4) 10/29/22 05:44 Total Bilirubin 0.5 mg/dL (0.2-1.0) 10/30/22 02:35 AST 17 U/L (15-37) 10/30/22 02:35 ALT 19 U/L (13-56) 10/30/22 02:35 Alkaline Phosphatase 20 U/L (45-117) L 10/30/22 02:35 Lipase 132 U/L (73-393) 10/28/22 03:15 Home Medications: Clotrim/Betameth Cream [Lotrisone Cream*] 1 jordan TOP Q12HR PRN 08/22/21 Levothyroxine Sodium [Levothyroxine] 1 tab PO [id number] 08/22/21 Metoprolol Succinate 2 tab PO DAILY 08/22/21 Mirabegron [Myrbetriq] 1 tab PO DAILY 08/22/21 Nystatin [Nystop] 100,000 pwd Q12HP PRN 08/22/21 Docusate Sodium [Stool Softener] 100 mg PO BEDTIME 10/27/22 Loratadine [Claritin*] 10 mg PO DAILY PRN 10/27/22 Amox/K Clav [Augmentin 600 MG/5 ML Susp] 5 ml PO BID #70 ml 10/30/22 Cyanocobalamin (Vitamin B-12) [Vitamin B12] 5,000 mcg SL DAILY #30 tab 10/30/22 Folic Acid 1 mg PO DAILY #30 tab 10/30/22 Quetiapine [Seroquel*] 25 mg PO BID tab 10/30/22 New Medications: Amox/K Clav [Augmentin 600 MG/5 ML Susp] 5 ml PO BID #70 ml Folic Acid 1 mg PO DAILY #30 tab Cyanocobalamin (Vitamin B-12) [Vitamin B12] 5,000 mcg SL DAILY #30 tab Physician Discharge Instructions: -DC IV and DC to [facility] with hospice -Follow-up with PCP in 1 to 2 days -Please call Dr. Vang at [phone] if any questions regarding hospital stay -Please call nursing station at [phone] if any nursing or medication questions -Return to the emergency room if symptoms worsen Diet: Regular (comfort foods) Activity: Bedrest Followup: NONE,NONE [Primary Care Provider] -
[2022-10-31] MEDS: PANTOPRAZOLE 40 MG INJ IVP SCH (09:24)
[2022-10-31] MEDS: FOLIC ACID 1 MG TABLET PO SCH (09:25)
[2022-10-31] MEDS: QUETIAPINE 25 MG TAB PO SCH (09:25)
[2022-10-31] MEDS: AMOX/K CLAV 875 MG TAB PO SCH (09:25)
[2022-10-31] MEDS: APIXABAN 5 MG TABLET PO SCH (09:25)
[2022-10-31] MEDS: METOPROLOL XL 25 MG TAB PO SCH (09:25)
[2022-10-31 11:47] VITALS: BP 122/65; TEMP 98
== END 2022-10-31 13:46 | disposition home or self-care (01) | DRG 872 ==
LOC: ER 23:35 → ERHOLD 10-27 05:09 → 4TH 10-27 10:16
PROVIDERS: ADMIT Hospitalist; ATTEND Hospitalist
DX: A41.9 Sepsis, unspecified organism (principal); N39.0 Urinary tract infection, site not specified; K31.1 Adult hypertrophic pyloric stenosis; R65.20 Severe sepsis without septic shock; B95.2 Enterococcus as the cause of diseases classified elsewhere; G30.9 Alzheimer's disease, unspecified; F02.80 Dementia in other diseases classified elsewhere, unspecified severity, without behavioral disturbance, psychotic disturbance, mood disturbance, and anxiety; E03.9 Hypothyroidism, unspecified; Z85.3 Personal history of malignant neoplasm of breast; M19.90 Unspecified osteoarthritis, unspecified site; M81.0 Age-related osteoporosis without current pathological fracture; Z74.01 Bed confinement status; K44.9 Diaphragmatic hernia without obstruction or gangrene; R11.2 Nausea with vomiting, unspecified
CPT/HCPCS: 0240U; 36415; 71045; 74018; 74177; 80048; 80053; 80076; 81003; 81015; 82533; 82607; 82746; 83540; 83605; 83690; 83735; 83880; 84145; 84439; 84443; 84484; 85025; 85610; 85730; 87040; 87077; 87086; 87088; 87186; 92526; 93005; 96361; 96365; 96375; 99285; C9113; J1160; J3420; J3480; J7030; J7040; J7120; Q9967